=== PATIENT | male | born 1935 | race Caucasian/White ===

== ENCOUNTER → 2019-10-27 14:25 | Outpatient (BNVA) | payer MEDICARE, OTHER, SELFPAY | PROVIDERS: Family Provider Family Medicine; PCP Family Medicine; Visit Provider Urology | DX: C67.9 Malignant neoplasm of bladder, unspecified (principal); C67.2 Malignant neoplasm of lateral wall of bladder | CPT/HCPCS: 81001 ==

== ENCOUNTER 2019-11-15 13:20 | Inpatient (IN) | payer MEDICARE, OTHER, SELFPAY ==
[2019-11-11 09:31] VITALS: BMI 29.1
--- NOTE | 2019-11-11 10:00 | ECG_ITS ---
Measurements Intervals [place] Rate: 49 P: 10 OR: 129 QRS: 17 QRSD: 86 T: 51 QT: 428 QTc: 389 SINUS BRADYCARDIA Compared to ECG 05/15/2017 10:14:42 No significant changes Electronically Signed On 11-11-2019 19:10:08 DESK OFFICER by Mani Loving M.D. [id number]
[2019-11-11 10:15] LABS: Add Urine Microscopic? NO
[2019-11-11 10:17] LABS: Basophils % 0.4 %; Eosinophils # 0.3 10^3/uL (0.0-0.8); Eosinophils % 4.3 %; Hematocrit 39.1 % (42.0-52.0); Hemoglobin 12.8 g/dL (11.7-16.6); Lymphocytes # 0.9 10^3/uL (0.8-4.8); Lymphocytes % 12.4 %; Mean Corpuscular HGB Conc 32.7 g/dL (30.0-36.0); Mean Corpuscular Hemoglobin 29.7 pg (28.0-34.0); Mean Corpuscular Volume 90.7 fL (80-94); Mean Platelet Volume 9.9 fL (7.4-10.4); Monocytes # 0.5 10^3/uL (0.2-0.9); Monocytes % 7.3 %; Neutrophils # 5.3 10^3/uL (1.8-7.7); Neutrophils % 75.3 %; Nucleated Red Blood Cells % 0 %; Platelet Count 196 10^3/cmm (130-400); Red Blood Count 4.31 10^6/uL (4.1-5.3); Red Cell Distribution Width 13.3 % (12.1-15.1)
[2019-11-11 10:27] LABS: INR 1.03 (0.8-1.2)
[2019-11-11 10:28] LABS: Urine Appearance Clear (CLEAR); Urine Color Yellow (Yellow)
[2019-11-11 10:29] LABS: Bilirubin Urine Neg (NEGATIVE); Blood Urine Neg (Negative); Glucose Urine UA Norm (Normal); Ketones Urine Negative (Negative); Leukocyte Esterase Urine Negative (Negative); Nitrate Urine Negative (Negative); Protein Urine Neg (Negative); Urobilinogen Urine Norm (Negative)
[2019-11-11 10:30] LABS: Blood Urea Nitrogen 16 mg/dL (8-23); Calcium 9.9 mg/dL (8.5-10.5); Carbon Dioxide 29 mmol/L (22-29); Chloride 102 mmol/L (98-107); Glucose 146 mg/dL (65-115); Osmolality Calculated 289 mOsm/kg (285-295); Sodium 140 mmol/L (136-145)
[2019-11-15 06:51] VITALS: BP 162/91; PULSE 77; RESP 18; TEMP 36.3; O2SAT 97
[2019-11-15 07:18] LABS: Glucose Point of Care 113 mg/dL (70-110)
[2019-11-15] MEDS: sodium chloride 0.9% 1,000 ML 30 ML IV (07:21)
--- NOTE | 2019-11-15 07:58 | P.ANESASSM_ITS ---
Pre-Anesthetic Assessment Pre-Anesthetic Assessment: Height/Weight: Height 1.8 m Weight 94.801 kg Temp Pulse Resp BP Pulse Ox 97.3 F L 77 18 162/91 97 11/15/19 06:51 11/15/19 06:51 11/15/19 06:51 11/15/19 06:51 11/15/19 06:51 Preop Diagnosis: Right Carotid stenosis Proposed Procedure: Operation Date: 11/15/19 08:20 Proposed Procedures p Carotid Endarterectomy(Right) - Moi Carmona MD Last intake: Intake Last Liquid Date 11/14/19 Last Liquid Time 22:00 Last Solid Date 11/14/19 Last Solid Time 22:00 Social: Pack years: 30 Comment: quit 35 years ago, Exam: Pre-Anes Outpt Exam: alert, oriented x 3, clear to auscultation bilaterally and regular rate & rhythm Airway: Submandibular: WNL Cervical ROM: WNL MP: 1 Pulmonary: Pulmonary: COPD CV/HEM: CV/HEM: HTN Comments: rx'd x 20y stress test 20y negative GI: GI: GERD Metabolic: Metabolic: DM and Hyperlipidemia Comments: rx'd x 20y, normally does not follow Neuropsych: Neuropsych: CVA Comments: 10/11 memory issues date 11/14/19 [facility] Anesthetic Plan: ASA status: 3 Meds/Allergies Current Medications: Current Medications Generic Name Dose Route Start Last Admin Trade Name Freq PRN Reason Stop Dose Admin Sodium Chloride 1,000 mls @ 30 ml s/hr 11/15/19 07:00 11/15/19 07:21 Sodium Chloride 0.9% IV 11/16/19 06:59 30 mls/hr .Q24H KEVIN Administration PFSH Anesthesia PFSH: Social History Smoking and tobacco status: former smoker Alcohol intake: never Lives independently: No Household members: spouse Marital status: Current occupational status: retired History of recent travel: No Data Anesthesia CBC & Chem 7: 11/11/19 09:51 11/11/19 09:51 Other Labs: Laboratory Results - last 48 hr 11/11/19 11/15/19 09:51 07:15 POC Glucose 113 Blood Type O Positive Antibody Screen Negative Crossmatch See Detail Cardiac Studies: No Data to Display
--- NOTE | 2019-11-15 08:17 | W.PM.OPSUD ---
Surgery/Procedure H&P Update DATE OF PROCEDURE: November 15, 2019 DATE H&P PERFORMED: 10/28/19 H&P UPDATE INFORMATION: I have reviewed H&P completed within last 30 days, I have examined patient prior to procedure and No changes to prior documentation PREOP DIAGNOSIS: Right Carotid stenosis PRIMARY INDICATION FOR PROCEDURE: Total occlusion of the left internal carotid artery with 70% stenosis on the right internal carotid artery with recent CVA August 2019 I have conferred with my colleague Dr. Pettit from neurology concerning recommendations for right carotid endarterectomy, and she concurs given the recent history for CVA. He is felt to be at high risk for recurrent major neurologic event. Details and risks of surgery were carefully and frankly discussed with Mr. Pruett and his . The increased risk related to operative complications including stroke, , temporary or permanent hoarseness or swallowing difficulties were frankly discussed in lieu of his prior left carotid endarterectomy with now left ICA occlusion. He and his wish to proceed. PLANNED PROCEDURE: Operation Date: 11/15/19 08:20 Proposed Procedures p Carotid Endarterectomy(Right) - Moi Carmona MD
[2019-11-15] MEDS: vancomycin 1,000 MG SDV 1000 MG IRRIGATION (09:45)
[2019-11-15] MEDS: heparin, porcine 1,000 unit/mL INJ 10 mL 10000 UNIT IRRIGATION (10:26)
[2019-11-15] MEDS: ondansetron 2 mg/ML SDV 2 mL 4 MG IVP (13:28)
--- NOTE | 2019-11-15 13:32 | PC.NURSE ---
RECOVERY Patient recovered from surgery for 30 minutes. Mild nausea and pain. Fluids given in OR- 900 EBL in OR- 150 Urine output in OR- 600
--- NOTE | 2019-11-15 13:43 | PM.OP ---
Operative Report Date of procedure: November 15, 2019 Pre-op Diagnosis: Right Carotid stenosis Post-op diagnosis: same Procedure Done: Right carotid endarterectomy with patch angioplasty Specimens removed/disposition: Right carotid artery plaque Surgeon: Moi Carmona Anesthesia: General Estimated blood loss (mL): 150 Complications: None: Neurologically intact postop Disposition: ICU Brief History: 84-year-old gentleman status post left carotid endarterectomy 20 years ago. He suffered a CVA in August 2019 with profound confusion and disorientation which lasted for about 2 to 3 days. No focal deficits. He was found to have a totally occluded left internal carotid artery and a 70% right internal carotid artery. After consultation with Dr. Pettit from neurology, it is been recommended that right carotid endarterectomy be considered. This was carefully discussed with Mr. Pruett and his during previous clinic visits. They understand the increased risk related to his advanced age, recent CVA, and totally occluded left side. They wished to proceed. Procedure: Mr. Pruett was placed on the OR table and underwent general endotracheal anesthesia with a neurological monitoring endotracheal tube as well as placement of a right radial arterial line. Bihemispheric monitoring pads were placed as well as grounding and sensing pads for nerve conduction evaluation during neck dissection.The entire upper chest and right neck were sterilely prepped and draped. Due to minimal rotation capabilities of his neck, the table was inclined substantially to the left side to allow for adequate exposure. Incision was made along the anterior border of the sternomastoid muscle and carried down to the platysma with cautery. Dissection from this point forward was carried out utilizing Metzenbaum scissors. The internal jugular vein was dissected free and the facial vein was ligated, oversewn, and divided. Dissection was continued down through the ansa cervicalis with preservation of major branches. Minor branches were divided if required to allow for adequate exposure. Nerve conduction evaluation was performed throughout the dissection for protection of the recurrent nerve. We subsequently reached the common carotid artery. Dissection was then continued proximally to distally across the bifurcation. Vessel loops were placed around the common carotid artery, internal carotid artery, and external carotid artery. Distally, the base of the hypoglossal nerve could be identified and was protected. The internal carotid artery disease went fairly high and extended above the level of the mandibular angle. This did require some traction in this region, but great care was taken to minimize pressure to the hypoglossal nerve, which was protected. Care was taken during this dissection to avoid injury to the vagus nerve. The patient was then heparinized with 10,000 units. The systolic blood pressure was elevated to 160. Following this, in a rapid sequenced fashion, the distal internal carotid artery was clamped followed by clamping of the common carotid artery and external carotid artery. #11 scalpel blade was used to open the common carotid artery proximally. Triplett scissors were then utilized to extend this arteriotomy across the distal common carotid artery and ulcerated very stenotic plaque and continue this further at the bifurcation across the calcific plaque in the internal carotid artery until we had reached normal intima. The internal carotid artery clamp was briefly flashed with evidence of brisk back bleeding, therefore we elected not to shunt though we had planned to originally. It should be noted that bi-hemispheric oximetry was recorded throughout the procedure. Initial measurements on the right side were in the mid 60 range and also continued during carotid clamping and after reinstitution of flow which did improve up to near 70. Next, a freer elevator was utilized to create a dissection plane the plaque from intima at the proximal portion of the arteriotomy. This was then divided with a #11 scalpel blade. This plaque was then further dissected along the intimal plane proximally to distally across the bifurcation. Utilizing an everting technique, plaque was removed from the external carotid artery with brisk flow. This plaque was then dissected free up the internal carotid artery to a feathered edge. Heparinized saline solution was utilized to remove any loose debris. Next, a Hemashield patch was brought into the field and sewn into position utilizing a running 6-0 Prolene suture, thereby completing our patch angioplasty. At the completion of the patch, the external carotid artery was opened followed by the common carotid artery and finally the internal carotid artery, thereby reestablishing cerebral flow. Areas of extravasation were repaired with 6-0 Prolene suture. After 5 minutes, heparin was reversed with protamine. Hemostasis was confirmed. The wound was irrigated with antibiotic solution. A small, flat, Gulshan-Villa drain was placed in the wound and connected to bulb suction. Sponge and needle count was correct. The wound was then closed in 2 layers of 3-0 Vicryl suture. Skin was reapproximated in a subcuticular manner with 4-0 Monocryl suture. A pressure dressing was then applied. He was awakened from anesthesia and spontaneous movement of all extremities as well as movement to command was noted. Mr. Pruett was then transferred to the ICU in stable condition. I did bereavement counselor with the family at completion of the procedure. Mr. Pruett will be monitored in the ICU for the next 24 hours.
[2019-11-15] MEDS: aspirin 81 mg EC Tablet PO (15:37)
[2019-11-15 16:59] VITALS: BP 105/53
[2019-11-15] MEDS: amlodipine 5 mg Tablet PO (16:59)
[2019-11-15] MEDS: ceFAZolin 1,000 MG in sodium chloride 0.9% (plus) 50 ML 100 MG IV (16:59)
[2019-11-15] MEDS: losartan 50 mg Tablet 25 MG PO (16:59)
[2019-11-15] MEDS: metoprolol tartrate 50 mg Tablet 75 MG PO (17:00)
[2019-11-15 18:50] LABS: Glucose Point of Care 101 mg/dL (70-110)
[2019-11-15] MEDS: lactated ringers 1,000 ML 100 ML IV (19:10)
[2019-11-15] MEDS: HYDROcodone-acetaminophen 5-325 mg Tablet 1 TAB PO (20:37)
[2019-11-15 20:42] LABS: Glucose Point of Care 124 mg/dL (70-110)
--- NOTE | 2019-11-15 23:36 | PC.NURSE ---
Patient confused at to time and place. Continues to ask about his . Pulling of telemetry lines, Oxygen probe and pulling at SCOTT drain.
[2019-11-16] MEDS: ceFAZolin 1,000 MG in sodium chloride 0.9% (plus) 50 ML 100 MG IV ×2 (00:22→09:39)
[2019-11-16] MEDS: HYDROcodone-acetaminophen 5-325 mg Tablet 1 TAB PO ×2 (03:52→14:51)
[2019-11-16] MEDS: lactated ringers 1,000 ML 100 ML IV (04:03)
--- NOTE | 2019-11-16 06:45 | P.PN_ITS ---
Subjective Subjective: Interval history: Postop day 1 status post right carotid endarterectomy with patch angioplasty. Uneventful night. Neurochecks have been normal. Voice quality is normal. No swallowing difficulties. SCOTT drain output 30 cc overnight. Vital signs stable. Vitals/I&O/Wt Last Vital Signs Temp 97.3 F L 11/15/19 06:51 Pulse 77 11/15/19 06:51 Resp 18 11/15/19 06:51 BP 105/53 11/15/19 16:59 Pulse Ox 97 11/15/19 06:51 11/15/19 11/15/19 11/16/19 14:59 22:59 06:59 Intake Total 150 / 150 250 / 400 1250 / 1650 Output Total 165 / 165 315 / 480 Balance 150 / 150 85 / 235 935 / 1170 Physical Exam Neck/C-Spine: COMMON NORMALS: negative for full ROM OTHER: Incision line is intact. There is mild swelling though this is not substantial. No breathing difficulties. Trachea midline. SCOTT drain was discontinued. New dressings applied. Urinary Catheter Management^: Brar: Cath Placed During This Visit: yes Urethral Indwelling: No Reason for Continuing Indwelling Catheter: Accurate Measurement of Urinary Output in Critically Ill Patients Urinary Catheter Date of Insertion: 11/15/19 Urinary Catheter Time of Insertion: 09:05 Data : 11/11/19 09:51 11/11/19 09:51 A&P Assessment and plan (1) Carotid stenosis: Postop day #1 status post right carotid endarterectomy Will assess at noon to determine whether he needs to stay a second night. If so, will transfer to [place]. A bit of confusion this morning. I did discuss with family that I was concerned that he may be having some early onset dementia issues, and they confirmed that they actually had previously had similar discussions among themselves. We will reassess after breakfast and after ambulation in the unit. He may well need to stay a a second night. Status: Acute Code(s): I65.29 - Occlusion and stenosis of unspecified carotid artery Attestations Medical Necessity Statement*: Status post carotid endarterectomy Time Spent in Patient Care: 16 - 35 minutes Coding Level of Care Code Acute Fryer Line Helper for [facility] Fwamadeo Diagnoses Carotid stenosis I65.29
[2019-11-16] MEDS: ezetimibe 10 mg Tablet PO (09:37)
[2019-11-16] MEDS: atorvastatin 40 mg Tablet PO (09:37)
[2019-11-16] MEDS: tamsulosin 0.4 mg Capsule PO (09:38)
[2019-11-16] MEDS: allopurinol 100 mg Tablet PO (09:38)
[2019-11-16] MEDS: allopurinol 300 mg Tablet PO (09:38)
--- NOTE | 2019-11-16 10:12 | PC.CHAP ---
Pastoral Care Encounter/Spiritual Assessment Type of Contact [] Declined hot plate plywood press laborer visit [] Patient/Family/Request visit [] Outpatient visit [] Follow-up visit [] Physician referral [] Code/Alert [x Routine visit [] Staff referral [] Actively dying [] Patient sleeping [x] Family support [] [] Out of room [] Palliative care [] [] Receiving care in room [] Pre-surgical visit [] Trauma [] Long length of stay [x] ICU visit [] Other: Relational/Emotional Strength [] Patient feels connected with others/family/visitors/staff [] Distress [] Loneliness/isolation [] Abandonment Spirituality of Patient [x] Person of Tanya [] Attends Restoration of their Tanya [x] Believes in Prayer [] Reads Bible or Mu-Ism materials [] There are Spiritual issues to be addressed Outside Laborer Interventions [x] Prayer [] Active listening [] Non-anxious presence [] Spiritual/emotional support [] Crisis/trauma care [] Spiritual counseling [] Bereavement support [] Provided bereavement packet [] Provided Bible/devotional materials [] Provided toy/stuffed animal, coloring book to patient or family member [] Provided Communion [] Anointing/[place] [] Salvation [x] Completed spiritual assessment [] Other: Impact on Illness or Injury [] Angry [] Fearful [] Anxious [] Often cries [] Exhaustion [] Unable to work [] Unable to attend judaism [] Unable to walk/stand [] Unable to read [] Unable to drive [] Unable to eat/drink [] Unable to sleep [] Unable to be with family [] Patient intubated [] Other: Summary Patient (Max) feeling stronger. Edison very positive Time spent with patient 20min
[2019-11-16 11:14] LABS: Glucose Point of Care 137 mg/dL (70-110)
--- NOTE | 2019-11-16 11:47 | ANE.PACU2 ---
 Inpatient post-anesthesia follow up: Airway intact: Yes Vital signs: Temperature 97.3 F Pulse Rate 77 Respiratory Rate 18 Blood Pressure 105/53 Pulse Oximetry 97 Oxygen Delivery Me thod Room Air Oxygen Flow Rate Fraction of Inspir ed Oxygen Hydration adequate: Yes Nausea and vomiting: No Pain level: 2 Mental status: Baseline
[2019-11-16 16:11] LABS: Glucose Point of Care 168 mg/dL (70-110)
[2019-11-16 17:08] LABS: Glucose Point of Care 109 mg/dL (70-110)
--- NOTE | 2019-11-16 19:55 | PC.NURSE ---
Pt had 10 beat run of Vtach on monitor present in all leads, returned to sinus rhythm rate in 60's. On arrival into room patient resting on right side. No complaints of chest pain or dizziness. V/s 115/46 HR 63 O2 98% on 2L. Will continue to monitor.
[2019-11-16 20:21] VITALS: BP 119/49; PULSE 60; RESP 16; TEMP 36.8; O2SAT 95
[2019-11-16 20:47] LABS: Glucose Point of Care 182 mg/dL (70-110)
[2019-11-16 22:00] VITALS: BP 111/43; PULSE 66; RESP 14; TEMP 37.4; O2SAT 96
[2019-11-17] VITALS (9 sets, daily range): BP systolic 123–145; BP diastolic 48–67; PULSE 57–82; RESP 6–26; TEMP 36.8–37; O2SAT 92–97
[2019-11-17] MEDS: HYDROcodone-acetaminophen 5-325 mg Tablet 1 TAB PO ×2 (03:08→11:21)
--- NOTE | 2019-11-17 05:57 | P.PN_ITS ---
Subjective Subjective: Interval history: Postop day #2 status post right carotid endarterectomy with patch angioplasty. Uneventful night. Vital signs stable. Neurologically intact. Nurses report he does have occasional episodes of mild confusion but is easily reoriented. It is my understanding home health services have been arranged with [facility]. Vitals/I&O/Wt Last Vital Signs Temp 98.6 F 11/17/19 00:00 Pulse 68 11/17/19 04:00 Resp 12 11/17/19 04:00 BP 131/54 11/17/19 04:00 Pulse Ox 95 11/17/19 04:00 11/16/19 11/16/19 11/17/19 14:59 22:59 06:59 Intake Total 820 / 820 110 / 930 100 / 1030 Output Total 0 / 0 320 / 320 300 / 620 Balance 820 / 820 -210 / 610 -200 / 410 Physical Exam Const: COMMON NORMALS: oriented x3 Neck/C-Spine: COMMON NORMALS: negative for full ROM OTHER: Incision is clean and dry. Trachea midline. Neuro: COMMON NORMALS: oriented x3, moves all extremities, no focal motor deficits (Tongue is midline with protrusion. No swallowing difficulties.) and no sensory deficits noted Urinary Catheter Management^: Brar: Cath Placed During This Visit: yes Urethral Indwelling: No Reason for Continuing Indwelling Catheter: Accurate Measurement of Urinary Output in Critically Ill Patients Urinary Catheter Date of Insertion: 11/15/19 Urinary Catheter Time of Insertion: 09:05 Data : 11/11/19 09:51 11/11/19 09:51 A&P Assessment and plan (1) Carotid stenosis: Postop day #2 status post right carotid endarterectomy We will discharge to home health services today with follow-up in my clinic in 1 week. Status: Acute Code(s): I65.29 - Occlusion and stenosis of unspecified carotid artery Attestations Medical Necessity Statement*: Status post carotid endarterectomy for high- grade right ICA stenosis with total occlusion of the left ICA Time Spent in Patient Care: 16 - 35 minutes Coding Level of Care Code Acute Land Conservation Specialist for [facility] Diagnoses Carotid stenosis I65.29
--- NOTE | 2019-11-17 06:06 | PM.DCS ---
Discharge Providers Date of Admission: 11/15/19 13:20 Date of Discharge: November 17, 2019 Attending Provider at Admission: Moi Carmona MD Attending Provider at Discharge: Moi Carmona MD Primary Care Provider: Federico Hinton MD Diagnoses at Discharge Discharge Diagnosis (1) Carotid stenosis: Status: Acute Reason for Visit Reason for Visit: Reason For Visit: Right carotid endarterectomy Hospital Course Hospital Course: 84-year-old gentleman electively admitted for planned right carotid endarterectomy on November 17. He was referred to our service with a greater than 70% right ICA stenosis with a total occlusion of the left ICA. He had been hospitalized in August 2019 with a CVA. Consultation with neurology confirm recommendation that right carotid endarterectomy should be considered. Discharge Summary: Mr. Pruett was electively admitted underwent right CEA on November 15. He convalesced in the ICU where he remained neurologically intact. No focal deficits. He did have some episodes of confusion as to orientation. He was easily reoriented. As he lives along with his , we have made arrangements for home health services. Family has refused retirement care. I have made strong recommendations to family members that others need to be present particularly in the early postop period and that it would not be advisable for him and his to be alone. It is modest and he provides much of the care for his whom I have seen in a wheelchair at all prior visits. At the time of discharge she is oriented and neurologically intact. We will confirm that home health arrangements have been made and strongly encouraged appropriate family support, particular in the early postop period. Physical Exam Urinary Catheter Management^: Brar: Cath Placed During This Visit: yes Urethral Indwelling: No Reason for Continuing Indwelling Catheter: Accurate Measurement of Urinary Output in Critically Ill Patients Urinary Catheter Date of Insertion: 11/15/19 Urinary Catheter Time of Insertion: 09:05 Discharge Data Data Completed and Pending: Pending at discharge Category Date Time Status Leukocyte Reduced RBC Routine Lab 11/11/19 09:51 Results Retype for XM Rou rosetta Lab 11/11/19 09:51 Results Type and Screen - Cardiac Routine Lab 11/11/19 09:51 Results Pathology: Surgic al [PTH] Routine Pth 11/15/19 11:38 Received Labs from last 24 hours 11/16/19 11/16/19 11/16/19 20:44 16:58 11:24 POC Glucose 182 109 168 11/16/19 07:38 POC Glucose 137 Vitals: Last Vital Signs Temp 98.3 F 11/17/19 06:00 Pulse 82 11/17/19 06:00 Resp 18 11/17/19 06:00 BP 128/49 11/17/19 06:00 Pulse Ox 97 11/17/19 06:00 Discharge Plan Discharge Patient Disposition: Home, Self-Care Condition: Stable Prescriptions: New aspirin [Adult Low Dose Aspirin] 81 mg tablet,delayed release (DR/EC) 81 mg PO DAILY Qty: 90 RF: 4 Continued Eliquis 5 mg tablet 5 mg PO BID RF: 0 indomethacin 50 mg capsule 50 mg PO TID RF: 0 losartan 25 mg tablet 25 mg PO BID RF: 0 amlodipine 5 mg tablet 5 mg PO BID RF: 0 metoprolol tartrate 50 mg tablet 75 mg PO BID RF: 0 allopurinol 300 mg tablet 300 mg PO DAILY RF: 0 atorvastatin 40 mg tablet 40 mg PO DAILY RF: 0 ezetimibe 10 mg tablet See Rx Instructions PO DAILY RF: 0 glipizide 2.5 mg tablet extended release 24hr 2.5 mg PO DAILY RF: 0 Januvia 100 mg tablet 100 mg PO DAILY RF: 0 tamsulosin 0.4 mg capsule 0.4 mg PO DAILY RF: 0 Discontinued lidocaine HCl 2 % jelly 20 ml INTRA-URET ONCE Qty: 20 RF: 0 allopurinol 100 mg tablet 100 mg PO DAILY RF: 0 Discharge Orders: Discharge Order (Routine); Ordered 11/17/19 Ordered By: Moi Carmona Referrals: [facility] [Outside] () Moi Carmona MD [Physician] - 1 week Discharge Diet: Diabetic Discharge Activity: Increase activity as tolerated Activity Restrictions/Additional Instructions: No heavy lifting or straining x2 weeks May remove bandage tomorrow May begin daily showers tomorrow no swimming or tub baths x2 weeks Report any redness, swelling, drainage, fever, or increased tenderness Discharge Attestations Time Spent in Discharge Care*: less than 30 min Specific Discharge Activities: Specific discharge activities: educating patient, educating and/or supporting family/caregiver and discussing with pcp/other providers Quality Metrics Clinical Quality Measures During this hospital stay, did patient experience: None Coding Level of Care Code Acute Assistant General Manager for [employer] Diagnoses Carotid stenosis I65.29
[2019-11-17 06:57] LABS: Glucose Point of Care 118 mg/dL (70-110)
[2019-11-17] MEDS: allopurinol 300 mg Tablet PO (08:27)
[2019-11-17] MEDS: atorvastatin 40 mg Tablet PO (08:27)
[2019-11-17] MEDS: losartan 50 mg Tablet 25 MG PO (08:28)
[2019-11-17] MEDS: amlodipine 5 mg Tablet PO (08:28)
[2019-11-17] MEDS: ezetimibe 10 mg Tablet PO (08:28)
[2019-11-17] MEDS: tamsulosin 0.4 mg Capsule PO (08:28)
[2019-11-17] MEDS: metoprolol tartrate 50 mg Tablet 75 MG PO (08:28)
[2019-11-17] MEDS: allopurinol 100 mg Tablet PO (08:28)
--- NOTE | 2019-11-17 10:23 | PC.CHAP ---
Pastoral Care Encounter/Spiritual Assessment Type of Contact [] Declined security business analyst visit [] Patient/Family/Request visit [] Outpatient visit [] Follow-up visit [] Physician referral [] Code/Alert [x] Routine visit [] Staff referral [] Actively dying [] Patient sleeping [x] Family support [] [] Out of room [] Palliative care [] [] Receiving care in room [] Pre-surgical visit [] Trauma [] Long length of stay [x] ICU visit [] Other: Relational/Emotional Strength [] Patient feels connected with others/family/visitors/staff [] Distress [] Loneliness/isolation [] Abandonment Spirituality of Patient [x] Person of Tanya [] Attends Religious of their Tanya [x] Believes in Prayer [] Reads Bible or Sikhism materials [] There are Spiritual issues to be addressed Document Coordinator Interventions [x] Prayer [] Active listening [] Non-anxious presence [] Spiritual/emotional support [] Crisis/trauma care [] Spiritual counseling [] Bereavement support [] Provided bereavement packet [] Provided Bible/devotional materials [] Provided toy/stuffed animal, coloring book to patient or family member [] Provided Communion [] Anointing/Kinde [] Salvation [x] Completed spiritual assessment [] Other: Impact on Illness or Injury [] Angry [] Fearful [] Anxious [] Often cries [] Exhaustion [] Unable to work [] Unable to attend yazidism [] Unable to walk/stand [] Unable to read [] Unable to drive [] Unable to eat/drink [] Unable to sleep [] Unable to be with family [] Patient intubated [] Other: Summary Patient attempting to eat some eggs. Patient stronger today, but very sore. Time spent with patient 15min
[2019-11-17 11:32] LABS: Glucose Point of Care 108 mg/dL (70-110)
== END 2019-11-17 13:05 | disposition home or self-care (01) | DRG 39 ==
LOC: ICU 13:21
PROVIDERS: Admitting Provider Thoracic Surgery (Cardiothoracic Vascular Surgery); Family Provider Family Medicine; PCP Family Medicine; Visit Provider Thoracic Surgery (Cardiothoracic Vascular Surgery)
PROC: 03CK0ZZ Extirpation of Matter from Right Internal Carotid Artery, Open Approach (ICD-10-PCS; CPT 35301; principal; 2019-11-15 08:20)
DX: I65.21 Occlusion and stenosis of right carotid artery (principal); J44.9 Chronic obstructive pulmonary disease, unspecified; I10 Essential (primary) hypertension; E13.9 Other specified diabetes mellitus without complications; Z96.651 Presence of right artificial knee joint; Z79.01 Long term (current) use of anticoagulants; Z85.51 Personal history of malignant neoplasm of bladder; Z86.73 Personal history of transient ischemic attack (TIA), and cerebral infarction without residual deficits; Z87.891 Personal history of nicotine dependence
CPT/HCPCS: 12345; 36415; 36416; 51702; 80048; 81003; 82962; 85025; 85610; 86850; 86900; 88304; 93005; 96372; 96375; J0131; J0690; J1644; J1815; J2001; J2405; J2704; J2720; J3010; J3370; J3490; J7030

== ENCOUNTER 2019-11-22 15:37 | Emergency (ER) | payer MEDICARE, OTHER, SELFPAY ==
[2019-11-22 16:33] VITALS: BP 119/61; PULSE 80; RESP 16; TEMP 36.6; O2SAT 100; BMI 28.0
--- NOTE | 2019-11-22 16:44 | CTR_ITS ---
PROCEDURE INFORMATION: Exam: CT Head Without Contrast Exam date and time: 11/22/2019 4:55 PM Age: 84 years old Clinical indication: Altered mental status/memory loss; Patient HX: AMS. Recent onset of increased confusion per . Recent right endarterectomy. ; Additional info: Neuro symptoms TECHNIQUE: Imaging protocol: Computed tomography of the head without contrast. Total DLP: 887.39 mGy-cm Radiation optimization: All CT scans at this facility use at least one of these dose optimization techniques: automated exposure control; mA and/or kV adjustment per patient size (includes targeted exams where dose is matched to clinical indication); or iterative reconstruction. COMPARISON: CT head wo con* [id number] 08/21/2019 1:08 AM FINDINGS: Brain: There is moderate cortical atrophy. There is no intracranial mass or hemorrhage. There are small old lacunar infarct in the head of left caudate nucleus. Low-density changes are again seen in white matter regions in keeping with nonspecific small vessel chronic ischemic change. Midline shift: There is no shift of midline structures. Ventricles: Normal. No ventriculomegaly. Bones/joints: Unremarkable. No acute fracture. Sinuses: There is opacification of a few ethmoid air cells on the right. Mastoid air cells: Visualized mastoid air cells are well aerated. Soft tissues: Unremarkable. Other findings: Findings are not significantly changed from 08/21/2019. CT/CT head wo con* [id number] IMPRESSION: Atrophy and chronic ischemic changes. No acute intracranial finding. Radiation Dose CTDIVOL = (mGy): DLP = 887.39 (mGy-cm)
--- NOTE | 2019-11-22 18:33 | XR_ITS ---
WS: [id number] XR chest 1V portable [id number] REASON FOR EXAM: ams FINDINGS: The lung jaime are hypoaerated. There is arteriosclerotic changes in the arch of the aorta. The heart is not enlarged. There is no definite pneumonia, pleural effusion, pulmonary edema, or mass effect. There are hilum and apices normal. XR/XR chest 1V portable [id number] IMPRESSION: Arteriosclerotic changes in the arch of the aorta.
--- NOTE | 2019-11-22 18:34 | ECG_ITS ---
Measurements Intervals [place] Rate: 57 P: 22 MO: 126 QRS: 36 QRSD: 97 T: 47 QT: 434 QTc: 426 SINUS BRADYCARDIA WITH OCCASIONAL SUPRAVENTRICULAR PREMATURE COMPLEXES INTERPRETATION BASED ON A DEFAULT AGE OF 40 YEARS Compared to ECG 11/11/2019 10:08:30 No significant changes Electronically Signed On 11-22-2019 20:26:10 AREA CAPTAIN by Sarah Maier M.D. [email or web address]
--- NOTE | 2019-11-22 18:42 | ED_ITS ---
Entered by Maylin Siddiqui, acting as scribe for Jose Snyder MD Nov 22, 2019 15:37 HPI - Neuro Symptoms/Deficit General: Chief Complaint: Neuro Symptoms/Deficit Stated Complaint: AMS Time Seen by Provider: 11/22/19 18:32 Source: patient and family Mode of arrival: ambulatory Limitations: no limitations History of Present Illness: HPI Narrative: 84-year-old male who had a carotid endarterectomy last week by Dr. Carmona. Patient was seen today by PA at the ophthalmology clinic and has been having confusion. Patient here is able answer all my questions and does know the year but states that he gets confused and that is not his normal. Patient has been having difficulty recognizing people. He has had no weakness or slurred speech. Denies any worsening or improving factors. Timing confirmed by: spouse and family member Location: other (confusion) History of same: No Severity: moderate Relieving factors: none Exacerbating factors: none Context: gradual onset Associated symptoms: Reports no associated symptoms; Deny chest pain Treatments Prior to Arrival: other (pt was sent to the ED from Dr. [facility] for a possible stroke) Review of Systems General: Reports: 10 or more systems reviewed and unremarkable except in HPI and below Const: Denies: fever, chills, body aches or night sweats Eyes: Denies: change in vision ENMT: Denies: swelling of lips/tongue or bad breath Card: Denies: chest pain or lightheadedness Resp: Denies: shortness of breath or pain on inspiration GI: Denies: bloating or cramping Musc: Denies: neck pain or back pain Neuro: Reports: other (confusion) [facility] ED PFSH: Social History Smoking and tobacco status: former smoker Alcohol intake: never Lives independently: No Household members: spouse Marital status: Current occupational status: retired History of recent travel: No Physical Exam Const: COMMON NORMALS: no apparent distress, oriented x3 and healthy appearing HENMT: COMMON NORMALS: normocephalic and head/scalp atraumatic HEAD & SCALP: normocephalic and atraumatic Eye: COMMON NORMALS: PERRL and EOMs intact bilaterally PUPIL: Yes PERRL Neck/C-Spine: COMMON NORMALS: full ROM and supple Chest: COMMONS NORMALS: inspection of chest normal and palpation of chest normal Resp: COMMON NORMALS: normal respiratory effort, no retractions, no use of accessory muscles and clear to auscultation bilaterally AUSCULTATION: clear to auscultation bilaterally Cardio: COMMON NORMALS: regular rate, regular rhythm and no murmurs RATE: regular rate RHYTHM: regular rhythm GI: COMMON NORMALS: normal to inspection, nondistended, normoactive bowel sounds, soft to palpation, non-tender and no masses PALPATION: Yes soft Extremity: COMMON NORMALS: normal to inspection and full ROM Neuro: COMMON NORMALS: oriented x3, moves all extremities and no focal motor deficits Psych: COMMON NORMALS: mental status grossly normal, thought process normal and cooperative THOUGHT PROCESS: normal thought process Skin: COMMON NORMALS: no rashes or lesions noted and no wounds GENERAL SKIN EXAM: no rashes or lesions noted Course Vital Signs: Vital signs: Vital Signs Temperature 98 F 11/22/19 16:33 Pulse Rate 86 11/22/19 18:51 Respiratory Rate 16 11/22/19 18:51 Blood Pressure 151/68 11/22/19 18:51 Pulse Oximetry 95 11/22/19 18:51 MDM - Neuro Symptoms/Deficit MDM Narrative: Medical decision making narrative: Patient presents here with confusion that is since resolved. He is able answer all my questions appropriately and knows the year and his name. CT head here is normal. Lab work is normal as well. Patient is requesting discharge. I did offer him admission as he has had some confusion but states he feels improved and would rather follow-up with his primary care doctor outpatient. He is to return if worsening. Patient and understand and agree to plan. Lab Data: Labs: Lab Results 11/22/19 11/22/19 11/22/19 Range/Units 19:30 19:30 19:30 WBC 7.1 (4.0-10.0) 10^3/ uL RBC 3.96 L (4.1-5.3) 10^6/u L Hgb 11.6 L (11.7-16.6) g/dL Hct 36.0 L (42.0-52.0) % MCV 90.9 (80-94) fL MCH 29.3 (28.0-34.0) pg MCHC 32.2 (30.0-36.0) g/dL RDW 13.2 (12.1-15.1) % Plt Count 212 (130-400) 10^3/c mm MPV 9.8 (7.4-10.4) fL Neut % (Auto) 71.5 % Lymph % (Auto) 14.0 % [place] % (Auto) 9.2 % Eos % (Auto) 4.5 % Baso % (Auto) 0.4 % Neut # (Auto) 5.0 (1.8-7.7) 10^3/u L Lymph # (Auto) 1.0 (0.8-4.8) 10^3/u L [place] # (Auto) 0.7 (0.2-0.9) 10^3/u L Eos # (Auto) 0.3 (0.0-0.8) 10^3/u L Baso # (Auto) 0.0 (0.0-0.1) 10^3/u L Nucleated RBC % (a uto) 0 % Nucleated RBCs # 0.0 /100WBC Sodium 139 (136-145) mmol/L Potassium 4.3 (3.5-5.1) mmol/L Chloride 102 (98-107) mmol/L Carbon Dioxide 24 (22-29) mmol/L Anion Gap 17.3 (5-19) BUN 42 H (8-23) mg/dL Creatinine 2.2 H (0.7-1.2) mg/dL Glucose 108 (65-115) mg/dL Calcium 9.7 (8.5-10.5) mg/dL Total Bilirubin 0.5 (0.15-1.2) mg/dL AST 17 (0-40) U/L ALT 15 (0-41) U/L Alkaline Phosphata se 117 (40-130) IU/L Troponin T Baselin e 61 H (0-15) ng/mL Troponin T 120 Min jose (0-15) ng/mL Delta Troponin T (0-10) ABS# Total Protein 6.8 (6.6-8.7) g/dL Albumin 3.7 (3.5-5.2) g/dL Globulin 3.1 (1.3-4.6) g/dL Lipase 46 (13-60) U/L Urine Color (Yellow) Urine Appearance (CLEAR) Urine pH (5-7) Ur Specific Gravit y (1.005-1.030) Urine Protein (Negative) Urine Glucose (UA) (Normal) Urine Ketones (Negative) Urine Blood (Negative) Urine Nitrate (Negative) Urine Bilirubin (NEGATIVE) Urine Urobilinogen (Negative) mg/dL Ur Leukocyte Darling ase (Negative) 11/22/19 11/22/19 Range/Units 20:35 21:13 WBC (4.0-10.0) 10^3/ uL RBC (4.1-5.3) 10^6/u L Hgb (11.7-16.6) g/dL Hct (42.0-52.0) % MCV (80-94) fL MCH (28.0-34.0) pg MCHC (30.0-36.0) g/dL RDW (12.1-15.1) % Plt Count (130-400) 10^3/c mm MPV (7.4-10.4) fL Neut % (Auto) % Lymph % (Auto) % [place] % (Auto) % Eos % (Auto) % Baso % (Auto) % Neut # (Auto) (1.8-7.7) 10^3/u L Lymph # (Auto) (0.8-4.8) 10^3/u L [place] # (Auto) (0.2-0.9) 10^3/u L Eos # (Auto) (0.0-0.8) 10^3/u L Baso # (Auto) (0.0-0.1) 10^3/u L Nucleated RBC % (a uto) % Nucleated RBCs # /100WBC Sodium (136-145) mmol/L Potassium (3.5-5.1) mmol/L Chloride (98-107) mmol/L Carbon Dioxide (22-29) mmol/L Anion Gap (5-19) BUN (8-23) mg/dL Creatinine (0.7-1.2) mg/dL Glucose (65-115) mg/dL Calcium (8.5-10.5) mg/dL Total Bilirubin (0.15-1.2) mg/dL AST (0-40) U/L ALT (0-41) U/L Alkaline Phosphata se (40-130) IU/L Troponin T Baselin e (0-15) ng/mL Troponin T 120 Min jose 58.15 H (0-15) ng/mL Delta Troponin T -2.85 L (0-10) ABS# Total Protein (6.6-8.7) g/dL Albumin (3.5-5.2) g/dL Globulin (1.3-4.6) g/dL Lipase (13-60) U/L Urine Color Yellow (Yellow) Urine Appearance Clear (CLEAR) Urine pH 5 (5-7) Ur Specific Gravit y 1.015 (1.005-1.030) Urine Protein Neg (Negative) Urine Glucose (UA) Norm (Normal) Urine Ketones Negative (Negative) Urine Blood Neg (Negative) Urine Nitrate Negative (Negative) Urine Bilirubin Neg (NEGATIVE) Urine Urobilinogen Norm (Negative) mg/dL Ur Leukocyte Darling ase Negative (Negative) Imaging Data^: CXR: Attestation: I personally reviewed and interpreted this imaging study as follows: My impression: no acute abnormality CT Head: Radiologist's impression: Ordering Provider/Ordering MD: Chuy Gimenez Date of Service: 11/22/19 Procedure(s): CT head wo con* [id number] Accession Number(s): [id number] Report Number: [id number] PROCEDURE INFORMATION: Exam: CT Head Without Contrast Exam date and time: 11/22/2019 4:55 PM Age: 84 years old Clinical indication: Altered mental status/memory loss; Patient HX: AMS. Recent onset of increased confusion per . Recent right endarterectomy. ; Additional info: Neuro symptoms TECHNIQUE: Imaging protocol: Computed tomography of the head without contrast. Total DLP: 887.39 mGy-cm Radiation optimization: All CT scans at this facility use at least one of these dose optimization techniques: automated exposure control; mA and/or kV adjustment per patient size (includes targeted exams where dose is matched to clinical indication); or iterative reconstruction. COMPARISON: CT head wo con* [id number] 08/21/2019 1:08 AM FINDINGS: Brain: There is moderate cortical atrophy. There is no intracranial mass or hemorrhage. There are small old lacunar infarct in the head of left caudate nucleus. Low-density changes are again seen in white matter regions in keeping with nonspecific small vessel chronic ischemic change. Midline shift: There is no shift of midline structures. Ventricles: Normal. No ventriculomegaly. Bones/joints: Unremarkable. No acute fracture. Sinuses: There is opacification of a few ethmoid air cells on the right. Mastoid air cells: Visualized mastoid air cells are well aerated. Soft tissues: Unremarkable. Other findings: Findings are not significantly changed from 08/21/2019. CT/CT head wo con* [id number] IMPRESSION: Atrophy and chronic ischemic changes. No acute intracranial finding. EKG Data^: EKG 1: Attestation: I personally reviewed and interpreted this EKG as follows: EKG interpretation date: 11/22/19 EKG interpretation time: 18:44 Interpretation: Sinus bradycardia heart rate [address] or T wave abnormalities QRS 97 QTc 429 Discharge Plan Discharge Patient Disposition: Home, Self-Care Clinical Impression: Acute confusion Condition: Stable Prescriptions: No Action Eliquis 5 mg tablet 5 mg PO BID RF: 0 indomethacin 50 mg capsule 50 mg PO TID RF: 0 losartan 25 mg tablet 25 mg PO BID RF: 0 amlodipine 5 mg tablet 5 mg PO BID RF: 0 metoprolol tartrate 50 mg tablet 75 mg PO BID RF: 0 allopurinol 300 mg tablet 300 mg PO DAILY RF: 0 atorvastatin 40 mg tablet 40 mg PO DAILY RF: 0 ezetimibe 10 mg tablet See Rx Instructions PO DAILY RF: 0 glipizide 2.5 mg tablet extended release 24hr 2.5 mg PO DAILY RF: 0 Januvia 100 mg tablet 100 mg PO DAILY RF: 0 tamsulosin 0.4 mg capsule 0.4 mg PO DAILY RF: 0 Adult Low Dose Aspirin 81 mg tablet,delayed release (DR/EC) 81 mg PO DAILY Qty: 90 RF: 4 Discharge Orders: Discharge Order (Routine); Ordered 11/22/19 Ordered By: Jose Snyder Referrals: Federico Hinton MD [Primary Care Provider] - 4-7 days Discharge Diet: Advance as tolerated Discharge Activity: Resume usual activity Patient Instructions: Altered Mental Status (ED) Coding Level of Care Code ED [employer] Arc for Chg Fwd Exam Comprehensive The documentation recorded by the Artur blank Bridget Annette, accurately reflects the service I personally performed and the decisions made by Lillian ceballos Korby, MD Nov 22, 2019 15:37
[2019-11-22 18:51] VITALS: BP 151/68; PULSE 86; RESP 16; O2SAT 95
--- NOTE | 2019-11-22 18:55 | PC.NURSE ---
Patient presents to ER with spouse present for altered mental status. Patient is alert, oriented and able to answer all questions appropriately. Spouse states that lately he has just been talking alot, you know about when he was younger. Spouse states he has been talking and talking and she said this is not usual for him and she believes he needs a mental exam.
--- NOTE | 2019-11-22 18:56 | PC.NURSE ---
Pupils are noted to be uneven, right pupil is 5mm, round and reactive; the left pupil is 2mm is round and reactive. I asked regarding his pupils if this is normal or abnormal for the patient, she states she does not know; states they were at Dr. Lowe today and she believes they may have dilated an eye. Will continue to monitor.
[2019-11-22 19:44] LABS: Basophils % 0.4 %; Eosinophils # 0.3 10^3/uL (0.0-0.8); Eosinophils % 4.5 %; Hemoglobin 11.6 g/dL (11.7-16.6); Mean Corpuscular HGB Conc 32.2 g/dL (30.0-36.0); Mean Corpuscular Hemoglobin 29.3 pg (28.0-34.0); Mean Corpuscular Volume 90.9 fL (80-94); Mean Platelet Volume 9.8 fL (7.4-10.4); Monocytes # 0.7 10^3/uL (0.2-0.9); Monocytes % 9.2 %; Neutrophils % 71.5 %; Nucleated Red Blood Cells % 0 %; Platelet Count 212 10^3/cmm (130-400); Red Blood Count 3.96 10^6/uL (4.1-5.3); Red Cell Distribution Width 13.2 % (12.1-15.1); White Blood Count 7.1 10^3/uL (4.0-10.0)
[2019-11-22 19:58] LABS: Alanine Aminotransferase 15 U/L (0-41); Albumin Level 3.7 g/dL (3.5-5.2); Alkaline Phosphatase 117 IU/L (40-130); Anion Gap 17.3 (5-19); Aspartate Amino Transferase 17 U/L (0-40); Blood Urea Nitrogen 42 mg/dL (8-23); Calcium 9.7 mg/dL (8.5-10.5); Carbon Dioxide 24 mmol/L (22-29); Chloride 102 mmol/L (98-107); Globulin 3.1 g/dL (1.3-4.6); Glucose 108 mg/dL (65-115); Lipase 46 U/L (13-60); Potassium 4.3 mmol/L (3.5-5.1); Sodium 139 mmol/L (136-145); Total Bilirubin 0.5 mg/dL (0.15-1.2); Total Protein 6.8 g/dL (6.6-8.7)
[2019-11-22 20:00] LABS: Troponin(5th) Baseline 61 ng/mL (0-15)
--- NOTE | 2019-11-22 20:48 | PC.NURSE ---
Pt and family requesting to leave ED and return tomorrorw to obtain results from testing performed. Pt and family informed all testing will cease if pt leaves AMA. Pt and family verbalized understanding
[2019-11-22 21:03] LABS: Add Urine Microscopic? NO
[2019-11-22 21:07] LABS: Bilirubin Urine Neg (NEGATIVE); Blood Urine Neg (Negative); Glucose Urine UA Norm (Normal); Ketones Urine Negative (Negative); Leukocyte Esterase Urine Negative (Negative); Nitrate Urine Negative (Negative); Protein Urine Neg (Negative); Specific Gravity, Urine 1.015 (1.005-1.030); Urine Appearance Clear (CLEAR); Urine Color Yellow (Yellow); Urobilinogen Urine Norm (Negative); pH Urine 5 (5-7)
[2019-11-22 21:31] LABS: Troponin 5 2HR 58.15 ng/mL (0-15)
[2019-11-22 21:32] LABS: Troponin 5 2HR Delta -2.85 ABS# (0-10)
== END 2019-11-22 21:53 | disposition home or self-care (01) ==
PROVIDERS: Emergency Provider Emergency Medicine; Family Provider Family Medicine; PCP Family Medicine
DX: R41.0 Disorientation, unspecified (principal); Z87.891 Personal history of nicotine dependence
CPT/HCPCS: 36415; 70450; 71045; 80053; 81003; 83690; 84484; 85025; 93005; 99282; 99284

== ENCOUNTER 2019-12-02 14:10 | Inpatient (IN) | payer MEDICARE, OTHER, SELFPAY ==
[2019-12-02] VITALS (7 sets, daily range): BP systolic 110–169; BP diastolic 67–91; PULSE 55–83; RESP 16–18; TEMP 35.9–37; O2SAT 97–100; BMI 27.4
--- NOTE | 2019-12-02 14:37 | XR_ITS ---
WS: [id number] Portable AP upright chest, 12/02/2019 Clinical Data: dyspnea/cough Comparison: Portable chest, 11/22/2019. Findings: No nodules, masses or effusions are seen. The heart is normal. The pulmonary vascularity is not increased. No pneumonia or pneumothorax is seen. There are scattered granulomas throughout both lungs. The patient has poor inspiratory effort. The aortic arch and descending aorta show calcificati on and tortuosity. Monitor leads on the chest wall. XR/XR chest 1V portable [id number] Impression: Atherosclerosis.
--- NOTE | 2019-12-02 14:37 | ECG_ITS ---
Measurements Intervals [place] Rate: 52 P: 0 MO: 127 QRS: 27 QRSD: 97 T: 52 QT: 431 QTc: 404 SINUS BRADYCARDIA Compared to ECG 11/22/2019 18:44:10 No significant changes Electronically Signed On 12-02-2019 17:23:39 CDT by August Jones M.D. [email or web address]
--- NOTE | 2019-12-02 14:37 | CT_ITS ---
WS: [id number] CT HEAD TECHNIQUE: Noncontrast CT of the head obtained from the skullbase to the vertex. CLINICAL INFORMATION: AMS COMPARISON: November 22, 2019 DLP: 426.[address] scans at [facility] use at least one of these dose optimization techniques: automat ed exposure control; mA and/or kV adjustment per patient size (includes targeted exams where dose is matched to clinical indication); or iterative reconstruction. FINDINGS: No evidence of intracranial hemorrhage or mass effect. Ventricular system and basal cisterns are jacobs nt. Moderate small vessel changes with moderate parenchymal volume loss. Chronic lacunar infarct left lateral basal ganglia and left caudate. No extra-axial fluid collections. No evidence of mass or mas s effect. Normal fox-white differentiation. Inspissated secretions with partial opacification right frontoethmoidal recess..Normal visualized sof t tissues. Intracranial vascular calcification. Notified Dr. Mane at 12/02/2019 4:[address]/CT head wo con* [id number] IMPRESSION: 1. No evidence of intracranial hemorrhage or mass effect. 2. Moderate small vessel changes with moderate parenchymal volume loss. 3. No changes since November 22, 2019 4. Inspissated secretions with partial opacification right frontoethmoidal rec ess. 5. Mastoid air cells well aerated.
--- NOTE | 2019-12-02 14:38 | ED_ITS ---
Entered by Maylin Siddiqui, acting as scribe for Taz Aguirre DO Dec 02, 2019 14:10 Documented by User: Jose Snyder MD 12/02/19 19:35 HPI - Psych General: Chief Complaint: Psychiatric Symptoms Stated Complaint: CONFUSION Time Seen by Provider: 12/02/19 14:29 PFSH ED PFSH: Medical History Attention deficit disorder Carotid stenosis Cataract COPD (chronic obstructive pulmonary disease) CVA (cerebrovascular accident) cva 3 weeks ago Diabetes 1.5, managed as type 2 Gout Hypertension Malignant neoplasm of lateral wall of bladder Sleep apnea Surgical History H/O hemorrhoidectomy H/O vasectomy History of penile implant Requires deflation before catheter placement History of total right knee replacement Status post carotid surgery Family History Father , at age 59-pneumonia Arthritis Mother , at age 89 Dementia Social History Smoking and tobacco status: former smoker Alcohol intake: never Lives independently: No Household members: spouse Marital status: Current occupational status: retired History of recent travel: No MDM - Psych MDM Narrative: Medical decision making narrative: Keven presents here with generalized weakness and dehydration. Patient's creatinine is slightly elevated. Patient is well-appearing here with no signs of sepsis. Family states that he is not been eating much. Will admit for observation to further hydrate at this time. Spoke to hospitalist. Lab Data: Labs: Lab Results 12/02/19 12/02/19 12/02/19 Range/Units 14:50 15:20 15:25 WBC (4.0-10.0) 10^3/ uL RBC (4.1-5.3) 10^6/u L Hgb (11.7-16.6) g/dL Hct (42.0-52.0) % MCV (80-94) fL MCH (28.0-34.0) pg MCHC (30.0-36.0) g/dL RDW (12.1-15.1) % Plt Count (130-400) 10^3/c mm MPV (7.4-10.4) fL Neut % (Auto) % Lymph % (Auto) % Tift % (Auto) % Eos % (Auto) % Baso % (Auto) % Neut # (Auto) (1.8-7.7) 10^3/u L Lymph # (Auto) (0.8-4.8) 10^3/u L Tift # (Auto) (0.2-0.9) 10^3/u L Eos # (Auto) (0.0-0.8) 10^3/u L Baso # (Auto) (0.0-0.1) 10^3/u L Nucleated RBC % (a uto) % Nucleated RBCs # /100WBC Specimen Type Arterial Sample Site Radial, right ABG pH 7.43 (7.35-7.45) ABG pCO2 35.5 (35-45) mmHg ABG pO2 88.7 (80.0-100.0) mmH g ABG HCO3 23.5 (22-26) mmol/L ABG O2 Saturation 98.0 ABG Base Excess -0.4 (-2.0-2.0) mmol/ L Cesario Test Pos A-a O2 Gradient 13.3 H (5-10) mmHg Hematocrit 37.7 L (42-52) % Hgb O2 Saturation 97.1 (95-100) % Carboxyhemoglobin 0.7 (0.4-20.1) %THgb Methemoglobin 0.2 L (0.4-1.5) % Total Hemoglobin 12.3 L (14-18) g/dL Sodium 139.0 (131-143) mmol/L Potassium 4.1 (3.5-5.0) mmol/L Glucose 117.0 H (70-115) mg/dL Ionized Calcium 1.2 (1.1-1.4) mmol/L O2 Delivery Device Room air FiO2 21.0 % Forgesmith ID ed Chloride (98-107) mmol/L Carbon Dioxide (22-29) mmol/L Anion Gap (5-19) BUN (8-23) mg/dL Creatinine (0.7-1.2) mg/dL POC Glucose (70-110) mg/dL Calculated Osmolal ity (285-295) mOsm/k g Lactic Acid (0.5-2.2) mmol/L Calcium (8.5-10.5) mg/dL Total Bilirubin (0.15-1.2) mg/dL AST (0-40) U/L ALT (0-41) U/L Alkaline Phosphata se (40-130) IU/L Creatine Kinase (39-308) U/L Total Protein (6.6-8.7) g/dL Albumin (3.5-5.2) g/dL Globulin (1.3-4.6) g/dL Lipase (13-60) U/L Vitamin B12 (232-1245) pg/mL TSH (0.27-4.20) uIU/ mL Urine Color (Yellow) Urine Appearance (CLEAR) Urine pH (5-7) Ur Specific Gravit y (1.005-1.030) Urine Protein (Negative) Urine Glucose (UA) (Normal) Urine Ketones (Negative) Urine Blood (Negative) Urine Nitrate (Negative) Urine Bilirubin (NEGATIVE) Urine Urobilinogen (Negative) mg/dL Ur Leukocyte Darling ase (Negative) Urine Opiates Scre en (Negative) ng/mL Ur Barbiturates Sc reen (Negative) ng/mL Ur Phencyclidine S crn (Negative) ng/mL Ur Amphetamines Sc reen (Negative) ng/mL U Benzodiazepines Scrn (Negative) ng/mL Urine Cocaine Scre en (Negative) ng/mL U Marijuana (THC) Screen (Negative) ng/mL Serum Ketones Negative (Negative) Influenza Type A A g Negative (Negative) POC Influenza B Ag Negative (Negative) 12/02/19 12/02/19 12/02/19 Range/Units 15:53 15:55 15:55 WBC 8.6 (4.0-10.0) 10^3/ uL RBC 3.98 L (4.1-5.3) 10^6/u L Hgb 12.2 (11.7-16.6) g/dL Hct 37.3 L (42.0-52.0) % MCV 93.7 (80-94) fL MCH 30.7 (28.0-34.0) pg MCHC 32.7 (30.0-36.0) g/dL RDW 13.3 (12.1-15.1) % Plt Count 241 (130-400) 10^3/c mm MPV 9.8 (7.4-10.4) fL Neut % (Auto) 72.1 % Lymph % (Auto) 14.2 % Tift % (Auto) 8.3 % Eos % (Auto) 4.6 % Baso % (Auto) 0.2 % Neut # (Auto) 6.2 (1.8-7.7) 10^3/u L Lymph # (Auto) 1.2 (0.8-4.8) 10^3/u L Tift # (Auto) 0.7 (0.2-0.9) 10^3/u L Eos # (Auto) 0.4 (0.0-0.8) 10^3/u L Baso # (Auto) 0.0 (0.0-0.1) 10^3/u L Nucleated RBC % (a uto) 0 % Nucleated RBCs # 0.0 /100WBC Specimen Type Sample Site ABG pH (7.35-7.45) ABG pCO2 (35-45) mmHg ABG pO2 (80.0-100.0) mmH g ABG HCO3 (22-26) mmol/L ABG O2 Saturation ABG Base Excess (-2.0-2.0) mmol/ L Cesario Test A-a O2 Gradient (5-10) mmHg Hematocrit (42-52) % Hgb O2 Saturation (95-100) % Carboxyhemoglobin (0.4-20.1) %THgb Methemoglobin (0.4-1.5) % Total Hemoglobin (14-18) g/dL Sodium 138 (131-143) mmol/L Potassium 4.6 (3.5-5.0) mmol/L Glucose 134 H (70-115) mg/dL Ionized Calcium (1.1-1.4) mmol/L O2 Delivery Device FiO2 % Forgesmith ID Chloride 102 (98-107) mmol/L Carbon Dioxide 25 (22-29) mmol/L Anion Gap 15.6 (5-19) BUN 39 H (8-23) mg/dL Creatinine 2.1 H (0.7-1.2) mg/dL POC Glucose (70-110) mg/dL Calculated Osmolal ity 286 (285-295) mOsm/k g Lactic Acid 1.1 (0.5-2.2) mmol/L Calcium 9.8 (8.5-10.5) mg/dL Total Bilirubin 0.7 (0.15-1.2) mg/dL AST 12 (0-40) U/L ALT 15 (0-41) U/L Alkaline Phosphata se 113 (40-130) IU/L Creatine Kinase 67 (39-308) U/L Total Protein 6.7 (6.6-8.7) g/dL Albumin 3.8 (3.5-5.2) g/dL Globulin 2.9 (1.3-4.6) g/dL Lipase 64 H (13-60) U/L Vitamin B12 (232-1245) pg/mL TSH (0.27-4.20) uIU/ mL Urine Color (Yellow) Urine Appearance (CLEAR) Urine pH (5-7) Ur Specific Gravit y (1.005-1.030) Urine Protein (Negative) Urine Glucose (UA) (Normal) Urine Ketones (Negative) Urine Blood (Negative) Urine Nitrate (Negative) Urine Bilirubin (NEGATIVE) Urine Urobilinogen (Negative) mg/dL Ur Leukocyte Darling ase (Negative) Urine Opiates Scre en (Negative) ng/mL Ur Barbiturates Sc reen (Negative) ng/mL Ur Phencyclidine S crn (Negative) ng/mL Ur Amphetamines Sc reen (Negative) ng/mL U Benzodiazepines Scrn (Negative) ng/mL Urine Cocaine Scre en (Negative) ng/mL U Marijuana (THC) Screen (Negative) ng/mL Serum Ketones (Negative) Influenza Type A A g (Negative) POC Influenza B Ag (Negative) 12/02/19 12/02/19 12/02/19 Range/Units 15:55 16:27 16:27 WBC (4.0-10.0) 10^3/ uL RBC (4.1-5.3) 10^6/u L Hgb (11.7-16.6) g/dL Hct (42.0-52.0) % MCV (80-94) fL MCH (28.0-34.0) pg MCHC (30.0-36.0) g/dL RDW (12.1-15.1) % Plt Count (130-400) 10^3/c mm MPV (7.4-10.4) fL Neut % (Auto) % Lymph % (Auto) % Tift % (Auto) % Eos % (Auto) % Baso % (Auto) % Neut # (Auto) (1.8-7.7) 10^3/u L Lymph # (Auto) (0.8-4.8) 10^3/u L Tift # (Auto) (0.2-0.9) 10^3/u L Eos # (Auto) (0.0-0.8) 10^3/u L Baso # (Auto) (0.0-0.1) 10^3/u L Nucleated RBC % (a uto) % Nucleated RBCs # /100WBC Specimen Type Sample Site ABG pH (7.35-7.45) ABG pCO2 (35-45) mmHg ABG pO2 (80.0-100.0) mmH g ABG HCO3 (22-26) mmol/L ABG O2 Saturation ABG Base Excess (-2.0-2.0) mmol/ L Cesario Test A-a O2 Gradient (5-10) mmHg Hematocrit (42-52) % Hgb O2 Saturation (95-100) % Carboxyhemoglobin (0.4-20.1) %THgb Methemoglobin (0.4-1.5) % Total Hemoglobin (14-18) g/dL Sodium (131-143) mmol/L Potassium (3.5-5.0) mmol/L Glucose (70-115) mg/dL Ionized Calcium (1.1-1.4) mmol/L O2 Delivery Device FiO2 % Forgesmith ID Chloride (98-107) mmol/L Carbon Dioxide (22-29) mmol/L Anion Gap (5-19) BUN (8-23) mg/dL Creatinine (0.7-1.2) mg/dL POC Glucose (70-110) mg/dL Calculated Osmolal ity (285-295) mOsm/k g Lactic Acid (0.5-2.2) mmol/L Calcium (8.5-10.5) mg/dL Total Bilirubin (0.15-1.2) mg/dL AST (0-40) U/L ALT (0-41) U/L Alkaline Phosphata se (40-130) IU/L Creatine Kinase (39-308) U/L Total Protein (6.6-8.7) g/dL Albumin (3.5-5.2) g/dL Globulin (1.3-4.6) g/dL Lipase (13-60) U/L Vitamin B12 337 (232-1245) pg/mL TSH 3.26 (0.27-4.20) uIU/ mL Urine Color Yellow (Yellow) Urine Appearance Clear (CLEAR) Urine pH 6 (5-7) Ur Specific Gravit y 1.005 (1.005-1.030) Urine Protein Neg (Negative) Urine Glucose (UA) Norm (Normal) Urine Ketones Negative (Negative) Urine Blood Neg (Negative) Urine Nitrate Negative (Negative) Urine Bilirubin Neg (NEGATIVE) Urine Urobilinogen Norm (Negative) mg/dL Ur Leukocyte Darling ase Negative (Negative) Urine Opiates Scre en Negative (Negative) ng/mL Ur Barbiturates Sc reen Negative (Negative) ng/mL Ur Phencyclidine S crn Negative (Negative) ng/mL Ur Amphetamines Sc reen Negative (Negative) ng/mL U Benzodiazepines Scrn Negative (Negative) ng/mL Urine Cocaine Scre en Negative (Negative) ng/mL U Marijuana (THC) Screen Negative (Negative) ng/mL Serum Ketones (Negative) Influenza Type A A g (Negative) POC Influenza B Ag (Negative) 12/02/19 12/03/19 12/03/19 Range/Units 22:14 06:32 10:52 WBC (4.0-10.0) 10^3/ uL RBC (4.1-5.3) 10^6/u L Hgb (11.7-16.6) g/dL Hct (42.0-52.0) % MCV (80-94) fL MCH (28.0-34.0) pg MCHC (30.0-36.0) g/dL RDW (12.1-15.1) % Plt Count (130-400) 10^3/c mm MPV (7.4-10.4) fL Neut % (Auto) % Lymph % (Auto) % Tift % (Auto) % Eos % (Auto) % Baso % (Auto) % Neut # (Auto) (1.8-7.7) 10^3/u L Lymph # (Auto) (0.8-4.8) 10^3/u L Tift # (Auto) (0.2-0.9) 10^3/u L Eos # (Auto) (0.0-0.8) 10^3/u L Baso # (Auto) (0.0-0.1) 10^3/u L Nucleated RBC % (a uto) % Nucleated RBCs # /100WBC Specimen Type Sample Site ABG pH (7.35-7.45) ABG pCO2 (35-45) mmHg ABG pO2 (80.0-100.0) mmH g ABG HCO3 (22-26) mmol/L ABG O2 Saturation ABG Base Excess (-2.0-2.0) mmol/ L Cesario Test A-a O2 Gradient (5-10) mmHg Hematocrit (42-52) % Hgb O2 Saturation (95-100) % Carboxyhemoglobin (0.4-20.1) %THgb Methemoglobin (0.4-1.5) % Total Hemoglobin (14-18) g/dL Sodium (131-143) mmol/L Potassium (3.5-5.0) mmol/L Glucose (70-115) mg/dL Ionized Calcium (1.1-1.4) mmol/L O2 Delivery Device FiO2 % Forgesmith ID Chloride (98-107) mmol/L Carbon Dioxide (22-29) mmol/L Anion Gap (5-19) BUN (8-23) mg/dL Creatinine (0.7-1.2) mg/dL POC Glucose 204 119 211 (70-110) mg/dL Calculated Osmolal ity (285-295) mOsm/k g Lactic Acid (0.5-2.2) mmol/L Calcium (8.5-10.5) mg/dL Total Bilirubin (0.15-1.2) mg/dL AST (0-40) U/L ALT (0-41) U/L Alkaline Phosphata se (40-130) IU/L Creatine Kinase (39-308) U/L Total Protein (6.6-8.7) g/dL Albumin (3.5-5.2) g/dL Globulin (1.3-4.6) g/dL Lipase (13-60) U/L Vitamin B12 (232-1245) pg/mL TSH (0.27-4.20) uIU/ mL Urine Color (Yellow) Urine Appearance (CLEAR) Urine pH (5-7) Ur Specific Gravit y (1.005-1.030) Urine Protein (Negative) Urine Glucose (UA) (Normal) Urine Ketones (Negative) Urine Blood (Negative) Urine Nitrate (Negative) Urine Bilirubin (NEGATIVE) Urine Urobilinogen (Negative) mg/dL Ur Leukocyte Darling ase (Negative) Urine Opiates Scre en (Negative) ng/mL Ur Barbiturates Sc reen (Negative) ng/mL Ur Phencyclidine S crn (Negative) ng/mL Ur Amphetamines Sc reen (Negative) ng/mL U Benzodiazepines Scrn (Negative) ng/mL Urine Cocaine Scre en (Negative) ng/mL U Marijuana (THC) Screen (Negative) ng/mL Serum Ketones (Negative) Influenza Type A A g (Negative) POC Influenza B Ag (Negative) Imaging Data^: CT Head: Radiologist's impression: [place] [address] CT Scan Report Signed Patient: Neha Pruett Unit #: [id number] : 1935 Age/Sex: 84 / M ADM Date: 12/02/19 Loc: ER Room/Bed: Attending Dr: Ordering Provider/Ordering MD: Taz Aguirre DO Date of Service: 12/02/19 Procedure(s): CT abdomen pelvis con [id number] Accession Number(s): [id number] Report Number: [id number] PROCEDURE INFORMATION: Exam: CT Abdomen And Pelvis Without Contrast Exam date and time: 12/02/2019 4:33 PM Age: 84 years old Clinical indication: Abdominal pain; Prior surgery; Additional info: Abd pain TECHNIQUE: Imaging protocol: Computed tomography of the abdomen and pelvis without contrast. Total DLP: 1159.31 mGy-cm Radiation optimization: All CT scans at this facility use at least one of these dose optimization techniques: automated exposure control; mA and/or kV adjustment per patient size (includes targeted exams where dose is matched to clinical indication); or iterative reconstruction. COMPARISON: [facility] Renal 04/10/2017 3:19 PM FINDINGS: Lungs: Mild bibasilar atelectasis and/or infiltrate and/or scarring. Liver: Normal. No mass. Gallbladder and bile ducts: Multiple gallstones within the gallbladder. Pancreas: Normal. No ductal dilation. Spleen: Normal. No splenomegaly. Adrenals: 1.8 cm low-density left adrenal nodule suggesting probable benign adrenal adenoma or adrenal myelolipoma. No followup needed. Kidneys and ureters: Multiple right renal cysts with the largest measuring > 1.0 cm . Multiple left renal cysts with the largest measuring > 1.0 cm. Small vessel arterial calcifications in the renal lia bilaterally which are often associated with chronic renal failure. Stomach and bowel: Unremarkable. No obstruction. No mucosal thickening. Appendix: No evidence of appendicitis. Intraperitoneal space: Unremarkable. No free air. No significant fluid collection. Vasculature: Severe calcified coronary artery disease. Calcification of the abdominal aorta and/or iliac arteries consistent with atherosclerotic vessel disease. One or more calcified pelvic phleboliths. Lymph nodes: Unremarkable. No enlarged lymph nodes. Bladder: Unremarkable as visualized. Reproductive: One or more penile implants. Bones/joints: Dextroscoliosis. Severe multilevel spine degenerative changes including degenerative disc disease, spondylosis and facet degenerative changes. Soft tissues: Unremarkable. CT/CT abdomen pelvis wo con [id number] IMPRESSION: 1. Severe calcified coronary artery disease. 2. Multiple gallstones within the gallbladder. 3. 1.8 cm low-density left adrenal nodule suggesting probable benign adrenal adenoma or adrenal myelolipoma. No followup needed. CT Abd/Pel: Radiologist's impression: [address] [address] [address] Scan Report Signed Patient: Neha Pruett Unit #: [id number] : 1935 Age/Sex: 84 / M ADM Date: 09/10 Loc: ER Room/Bed: Attending Dr: Ordering Provider/Ordering MD: Taz Aguirre DO Date of Service: 12/02/19 Procedure(s): CT abdomen pelvis wo con [id number] Accession Number(s): [id number] Report Number: [id number] PROCEDURE INFORMATION: Exam: CT Abdomen And Pelvis Without Contrast Exam date and time: 12/02/2019 4:33 PM Age: 84 years old Clinical indication: Abdominal pain; Prior surgery; Additional info: Abd pain TECHNIQUE: Imaging protocol: Computed tomography of the abdomen and pelvis without contrast. Total DLP: 1159.31 mGy-cm Radiation optimization: All CT scans at this facility use at least one of these dose optimization techniques: automated exposure control; mA and/or kV adjustment per patient size (includes targeted exams where dose is matched to clinical indication); or iterative reconstruction. COMPARISON: [facility] Renal 04/10/2017 3:19 PM FINDINGS: Lungs: Mild bibasilar atelectasis and/or infiltrate and/or scarring. Liver: Normal. No mass. Gallbladder and bile ducts: Multiple gallstones within the gallbladder. Pancreas: Normal. No ductal dilation. Spleen: Normal. No splenomegaly. Adrenals: 1.8 cm low-density left adrenal nodule suggesting probable benign adrenal adenoma or adrenal myelolipoma. No followup needed. Kidneys and ureters: Multiple right renal cysts with the largest measuring > 1.0 cm . Multiple left renal cysts with the largest measuring > 1.0 cm. Small vessel arterial calcifications in the renal lia bilaterally which are often associated with chronic renal failure. Stomach and bowel: Unremarkable. No obstruction. No mucosal thickening. Appendix: No evidence of appendicitis. Intraperitoneal space: Unremarkable. No free air. No significant fluid collection. Vasculature: Severe calcified coronary artery disease. Calcification of the abdominal aorta and/or iliac arteries consistent with atherosclerotic vessel disease. One or more calcified pelvic phleboliths. Lymph nodes: Unremarkable. No enlarged lymph nodes. Bladder: Unremarkable as visualized. Reproductive: One or more penile implants. Bones/joints: Dextroscoliosis. Severe multilevel spine degenerative changes including degenerative disc disease, spondylosis and facet degenerative changes. Soft tissues: Unremarkable. CT/CT abdomen pelvis wo con [id number] IMPRESSION: 1. Severe calcified coronary artery disease. 2. Multiple gallstones within the gallbladder. 3. 1.8 cm low-density left adrenal nodule suggesting probable benign adrenal adenoma or adrenal myelolipoma. No followup needed. Discharge Plan Discharge Patient Disposition: Admitted As Inpatient Admit Provider: Mani Cruz Clinical Impression: Weakness Condition: Stable Referrals: [facility] [Outside] [facility] [Outside] Federico Hinton MD [Primary Care Provider] - Discharge Date/Time: 12/02/19 20:15 Coding Level of Care Code ED Financial Services Consultant for Chg Fwd Documented by User: Taz Aguirre DO 12/04/19 10:26 HPI - Psych General: Chief Complaint: Psychiatric Symptoms Stated Complaint: CONFUSION Time Seen by Provider: 12/02/19 14:29 Source: patient and EMS Mode of arrival: EMS Limitations: no limitations History of Present Illness: HPI Narrative: 84-year-old male sent to the emergency room by his primary care doctor. He was in the office was very weak had difficult time standing and nearly had a syncopal episode. He is being a progressively weak at home. He has had a previous right carotid endarterectomy and had some complications. He has had some hallucinations visual and audio as well. He is awake and alert when in the emergency room here but is difficult time answering questions in terms of place and time he is able to recognize familiar people at the bedside. Denies any recent hematochezia hematemesis coffee-ground emesis denies any dysuria injury or frequency denies any cough or chest pain or significant shortness of breath. MD complaint: other (halluicnations ) Onset (ago): week(s) (1 week) Duration: getting worse History of same: Yes Relieving factors: none Exacerbating factors: none Associated psychiatric symptoms: auditory hallucinations and visual hallucinations Associated symptoms: Reports auditory hallucinations and visual hallucinations Treatments prior to arrival: other (pt was at [facility] sent to ED for psych consult or longterm placement) Review of Systems Const: Denies: fever, chills, body aches, change in appetite, fatigue or malaise ENMT: Denies: throat pain, ear pain, nasal discharge or nasal congestion Card: Denies: chest pain, edema, shortness of breath on exertion or shortness of breath when lying down Resp: Denies: shortness of breath, productive cough or non-productive cough GI: Denies: abdominal pain, nausea, vomiting, vomiting blood, coffee grounds in vomit, diarrhea, constipation, bloating, blood in stool or black tarry stool : Denies: flank pain, painful urination, urinary frequency or urinary urgency Skin/Breast: Denies: rash or itching Psych: Reports: visual hallucinations and auditory hallucinations PFSH ED PFSH: Medical History Attention deficit disorder Carotid stenosis Cataract COPD (chronic obstructive pulmonary disease) CVA (cerebrovascular accident) cva 3 weeks ago Diabetes 1.5, managed as type 2 Gout Hypertension Malignant neoplasm of lateral wall of bladder Sleep apnea Surgical History H/O hemorrhoidectomy H/O vasectomy History of penile implant Requires deflation before catheter placement History of total right knee replacement Status post carotid surgery Family History Father , at age 59-pneumonia Arthritis Mother , at age 89 Dementia Social History Smoking and tobacco status: former smoker Alcohol intake: never Lives independently: No Household members: spouse Marital status: Current occupational status: retired History of recent travel: No Physical Exam Const: GENERAL APPEARANCE: cooperative, comfortable, well kempt and well developed HENMT: COMMON NORMALS: normocephalic, head/scalp atraumatic, EAC's normal, TM's normal bilaterally, external nose normal, moist oral mucous membranes and oropharynx normal HEAD & SCALP: normocephalic and atraumatic NOSE: external nose normal EXTERNAL AUDITORY CANAL: EAC's normal TYMPANIC MEMBRANE: TM's normal bilaterally MOUTH: oral and palatal mucosa normal, lip normal and tongue normal THROAT: posterior oropharynx normal and tonsils normal Eye: COMMON NORMALS: PERRL, EOMs intact bilaterally, conjunctivae normal and no scleral icterus CONJUNCTIVA: Yes conjunctivae normal PUPIL: Yes PERRL Neck/C-Spine: COMMON NORMALS: full ROM, no lymphadenopathy, supple, no meningeal signs and thyroid normal THYROID: thyroid normal and asymmetrical Lymph: LYMPHATIC: no lymphadenopathy noted Resp: COMMON NORMALS: normal respiratory effort, no retractions, no use of accessory muscles and clear to auscultation bilaterally AUSCULTATION: clear to auscultation bilaterally Cardio: COMMON NORMALS: regular rate and regular rhythm RATE: regular rate RHYTHM: regular rhythm HEART SOUNDS: no murmurs GI: COMMON NORMALS: normal to inspection, nondistended, normoactive bowel sounds, soft to palpation and no hepatosplenomegaly PALPATION: Yes soft and Yes no hepatosplenomegaly : COMMON NORMALS: Yes no CVA tenderness BLADDER/KIDNEY EXAM: Yes no CVA tenderness Back/Pelvis: COMMON NORMALS: no CVA tenderness LUMBAR SPINE/LOWER BACK: Yes normal to inspection Extremity: COMMON NORMALS: no clubbing, cyanosis or edema, no calf tenderness and no pedal edema Neuro: MENINGEAL SIGNS: Yes no meningeal signs OTHER: No focal neurologic deficits are noted. No significant findings on stroke score examining. Psych: APPEARANCE: Yes well kempt Skin: COMMON NORMALS: no rashes or lesions noted and skin turgor normal GENERAL SKIN EXAM: no rashes or lesions noted and turgor normal MDM - Psych Lab Data: Labs: Lab Results 12/02/19 12/02/19 12/02/19 Range/Units 14:50 15:20 15:25 WBC (4.0-10.0) 10^3/ uL RBC (4.1-5.3) 10^6/u L Hgb (11.7-16.6) g/dL Hct (42.0-52.0) % MCV (80-94) fL MCH (28.0-34.0) pg MCHC (30.0-36.0) g/dL RDW (12.1-15.1) % Plt Count (130-400) 10^3/c mm MPV (7.4-10.4) fL Neut % (Auto) % Lymph % (Auto) % Tift % (Auto) % Eos % (Auto) % Baso % (Auto) % Neut # (Auto) (1.8-7.7) 10^3/u L Lymph # (Auto) (0.8-4.8) 10^3/u L Tift # (Auto) (0.2-0.9) 10^3/u L Eos # (Auto) (0.0-0.8) 10^3/u L Baso # (Auto) (0.0-0.1) 10^3/u L Nucleated RBC % (a uto) % Nucleated RBCs # /100WBC Specimen Type Arterial Sample Site Radial, right ABG pH 7.43 (7.35-7.45) ABG pCO2 35.5 (35-45) mmHg ABG pO2 88.7 (80.0-100.0) mmH g ABG HCO3 23.5 (22-26) mmol/L ABG O2 Saturation 98.0 ABG Base Excess -0.4 (-2.0-2.0) mmol/ L Cesario Test Pos A-a O2 Gradient 13.3 H (5-10) mmHg Hematocrit 37.7 L (42-52) % Hgb O2 Saturation 97.1 (95-100) % Carboxyhemoglobin 0.7 (0.4-20.1) %THgb Methemoglobin 0.2 L (0.4-1.5) % Total Hemoglobin 12.3 L (14-18) g/dL Sodium 139.0 (131-143) mmol/L Potassium 4.1 (3.5-5.0) mmol/L Glucose 117.0 H (70-115) mg/dL Ionized Calcium 1.2 (1.1-1.4) mmol/L O2 Delivery Device Room air FiO2 21.0 % Forgesmith ID ed Chloride (98-107) mmol/L Carbon Dioxide (22-29) mmol/L Anion Gap (5-19) BUN (8-23) mg/dL Creatinine (0.7-1.2) mg/dL POC Glucose (70-110) mg/dL Calculated Osmolal ity (285-295) mOsm/k g Lactic Acid (0.5-2.2) mmol/L Calcium (8.5-10.5) mg/dL Total Bilirubin (0.15-1.2) mg/dL AST (0-40) U/L ALT (0-41) U/L Alkaline Phosphata se (40-130) IU/L Creatine Kinase (39-308) U/L Total Protein (6.6-8.7) g/dL Albumin (3.5-5.2) g/dL Globulin (1.3-4.6) g/dL Lipase (13-60) U/L Vitamin B12 (232-1245) pg/mL TSH (0.27-4.20) uIU/ mL Urine Color (Yellow) Urine Appearance (CLEAR) Urine pH (5-7) Ur Specific Gravit y (1.005-1.030) Urine Protein (Negative) Urine Glucose (UA) (Normal) Urine Ketones (Negative) Urine Blood (Negative) Urine Nitrate (Negative) Urine Bilirubin (NEGATIVE) Urine Urobilinogen (Negative) mg/dL Ur Leukocyte Darling ase (Negative) Urine Opiates Scre en (Negative) ng/mL Ur Barbiturates Sc reen (Negative) ng/mL Ur Phencyclidine S crn (Negative) ng/mL Ur Amphetamines Sc reen (Negative) ng/mL U Benzodiazepines Scrn (Negative) ng/mL Urine Cocaine Scre en (Negative) ng/mL U Marijuana (THC) Screen (Negative) ng/mL Serum Ketones Negative (Negative) Influenza Type A A g Negative (Negative) POC Influenza B Ag Negative (Negative) 12/02/19 12/02/19 12/02/19 Range/Units 15:53 15:55 15:55 WBC 8.6 (4.0-10.0) 10^3/ uL RBC 3.98 L (4.1-5.3) 10^6/u L Hgb 12.2 (11.7-16.6) g/dL Hct 37.3 L (42.0-52.0) % MCV 93.7 (80-94) fL MCH 30.7 (28.0-34.0) pg MCHC 32.7 (30.0-36.0) g/dL RDW 13.3 (12.1-15.1) % Plt Count 241 (130-400) 10^3/c mm MPV 9.8 (7.4-10.4) fL Neut % (Auto) 72.1 % Lymph % (Auto) 14.2 % Tift % (Auto) 8.3 % Eos % (Auto) 4.6 % Baso % (Auto) 0.2 % Neut # (Auto) 6.2 (1.8-7.7) 10^3/u L Lymph # (Auto) 1.2 (0.8-4.8) 10^3/u L Tift # (Auto) 0.7 (0.2-0.9) 10^3/u L Eos # (Auto) 0.4 (0.0-0.8) 10^3/u L Baso # (Auto) 0.0 (0.0-0.1) 10^3/u L Nucleated RBC % (a uto) 0 % Nucleated RBCs # 0.0 /100WBC Specimen Type Sample Site ABG pH (7.35-7.45) ABG pCO2 (35-45) mmHg ABG pO2 (80.0-100.0) mmH g ABG HCO3 (22-26) mmol/L ABG O2 Saturation ABG Base Excess (-2.0-2.0) mmol/ L Cesario Test A-a O2 Gradient (5-10) mmHg Hematocrit (42-52) % Hgb O2 Saturation (95-100) % Carboxyhemoglobin (0.4-20.1) %THgb Methemoglobin (0.4-1.5) % Total Hemoglobin (14-18) g/dL Sodium 138 (131-143) mmol/L Potassium 4.6 (3.5-5.0) mmol/L Glucose 134 H (70-115) mg/dL Ionized Calcium (1.1-1.4) mmol/L O2 Delivery Device FiO2 % Forgesmith ID Chloride 102 (98-107) mmol/L Carbon Dioxide 25 (22-29) mmol/L Anion Gap 15.6 (5-19) BUN 39 H (8-23) mg/dL Creatinine 2.1 H (0.7-1.2) mg/dL POC Glucose (70-110) mg/dL Calculated Osmolal ity 286 (285-295) mOsm/k g Lactic Acid 1.1 (0.5-2.2) mmol/L Calcium 9.8 (8.5-10.5) mg/dL Total Bilirubin 0.7 (0.15-1.2) mg/dL AST 12 (0-40) U/L ALT 15 (0-41) U/L Alkaline Phosphata se 113 (40-130) IU/L Creatine Kinase 67 (39-308) U/L Total Protein 6.7 (6.6-8.7) g/dL Albumin 3.8 (3.5-5.2) g/dL Globulin 2.9 (1.3-4.6) g/dL Lipase 64 H (13-60) U/L Vitamin B12 (232-1245) pg/mL TSH (0.27-4.20) uIU/ mL Urine Color (Yellow) Urine Appearance (CLEAR) Urine pH (5-7) Ur Specific Gravit y (1.005-1.030) Urine Protein (Negative) Urine Glucose (UA) (Normal) Urine Ketones (Negative) Urine Blood (Negative) Urine Nitrate (Negative) Urine Bilirubin (NEGATIVE) Urine Urobilinogen (Negative) mg/dL Ur Leukocyte Darling ase (Negative) Urine Opiates Scre en (Negative) ng/mL Ur Barbiturates Sc reen (Negative) ng/mL Ur Phencyclidine S crn (Negative) ng/mL Ur Amphetamines Sc reen (Negative) ng/mL U Benzodiazepines Scrn (Negative) ng/mL Urine Cocaine Scre en (Negative) ng/mL U Marijuana (THC) Screen (Negative) ng/mL Serum Ketones (Negative) Influenza Type A A g (Negative) POC Influenza B Ag (Negative) 12/02/19 12/02/19 12/02/19 Range/Units 15:55 16:27 16:27 WBC (4.0-10.0) 10^3/ uL RBC (4.1-5.3) 10^6/u L Hgb (11.7-16.6) g/dL Hct (42.0-52.0) % MCV (80-94) fL MCH (28.0-34.0) pg MCHC (30.0-36.0) g/dL RDW (12.1-15.1) % Plt Count (130-400) 10^3/c mm MPV (7.4-10.4) fL Neut % (Auto) % Lymph % (Auto) % Tift % (Auto) % Eos % (Auto) % Baso % (Auto) % Neut # (Auto) (1.8-7.7) 10^3/u L Lymph # (Auto) (0.8-4.8) 10^3/u L Tift # (Auto) (0.2-0.9) 10^3/u L Eos # (Auto) (0.0-0.8) 10^3/u L Baso # (Auto) (0.0-0.1) 10^3/u L Nucleated RBC % (a uto) % Nucleated RBCs # /100WBC Specimen Type Sample Site ABG pH (7.35-7.45) ABG pCO2 (35-45) mmHg ABG pO2 (80.0-100.0) mmH g ABG HCO3 (22-26) mmol/L ABG O2 Saturation ABG Base Excess (-2.0-2.0) mmol/ L Cesario Test A-a O2 Gradient (5-10) mmHg Hematocrit (42-52) % Hgb O2 Saturation (95-100) % Carboxyhemoglobin (0.4-20.1) %THgb Methemoglobin (0.4-1.5) % Total Hemoglobin (14-18) g/dL Sodium (131-143) mmol/L Potassium (3.5-5.0) mmol/L Glucose (70-115) mg/dL Ionized Calcium (1.1-1.4) mmol/L O2 Delivery Device FiO2 % Forgesmith ID Chloride (98-107) mmol/L Carbon Dioxide (22-29) mmol/L Anion Gap (5-19) BUN (8-23) mg/dL Creatinine (0.7-1.2) mg/dL POC Glucose (70-110) mg/dL Calculated Osmolal ity (285-295) mOsm/k g Lactic Acid (0.5-2.2) mmol/L Calcium (8.5-10.5) mg/dL Total Bilirubin (0.15-1.2) mg/dL AST (0-40) U/L ALT (0-41) U/L Alkaline Phosphata se (40-130) IU/L Creatine Kinase (39-308) U/L Total Protein (6.6-8.7) g/dL Albumin (3.5-5.2) g/dL Globulin (1.3-4.6) g/dL Lipase (13-60) U/L Vitamin B12 337 (232-1245) pg/mL TSH 3.26 (0.27-4.20) uIU/ mL Urine Color Yellow (Yellow) Urine Appearance Clear (CLEAR) Urine pH 6 (5-7) Ur Specific Gravit y 1.005 (1.005-1.030) Urine Protein Neg (Negative) Urine Glucose (UA) Norm (Normal) Urine Ketones Negative (Negative) Urine Blood Neg (Negative) Urine Nitrate Negative (Negative) Urine Bilirubin Neg (NEGATIVE) Urine Urobilinogen Norm (Negative) mg/dL Ur Leukocyte Darling ase Negative (Negative) Urine Opiates Scre en Negative (Negative) ng/mL Ur Barbiturates Sc reen Negative (Negative) ng/mL Ur Phencyclidine S crn Negative (Negative) ng/mL Ur Amphetamines Sc reen Negative (Negative) ng/mL U Benzodiazepines Scrn Negative (Negative) ng/mL Urine Cocaine Scre en Negative (Negative) ng/mL U Marijuana (THC) Screen Negative (Negative) ng/mL Serum Ketones (Negative) Influenza Type A A g (Negative) POC Influenza B Ag (Negative) 12/02/19 12/03/19 12/03/19 Range/Units 22:14 06:32 10:52 WBC (4.0-10.0) 10^3/ uL RBC (4.1-5.3) 10^6/u L Hgb (11.7-16.6) g/dL Hct (42.0-52.0) % MCV (80-94) fL MCH (28.0-34.0) pg MCHC (30.0-36.0) g/dL RDW (12.1-15.1) % Plt Count (130-400) 10^3/c mm MPV (7.4-10.4) fL Neut % (Auto) % Lymph % (Auto) % Tift % (Auto) % Eos % (Auto) % Baso % (Auto) % Neut # (Auto) (1.8-7.7) 10^3/u L Lymph # (Auto) (0.8-4.8) 10^3/u L Tift # (Auto) (0.2-0.9) 10^3/u L Eos # (Auto) (0.0-0.8) 10^3/u L Baso # (Auto) (0.0-0.1) 10^3/u L Nucleated RBC % (a uto) % Nucleated RBCs # /100WBC Specimen Type Sample Site ABG pH (7.35-7.45) ABG pCO2 (35-45) mmHg ABG pO2 (80.0-100.0) mmH g ABG HCO3 (22-26) mmol/L ABG O2 Saturation ABG Base Excess (-2.0-2.0) mmol/ L Cesario Test A-a O2 Gradient (5-10) mmHg Hematocrit (42-52) % Hgb O2 Saturation (95-100) % Carboxyhemoglobin (0.4-20.1) %THgb Methemoglobin (0.4-1.5) % Total Hemoglobin (14-18) g/dL Sodium (131-143) mmol/L Potassium (3.5-5.0) mmol/L Glucose (70-115) mg/dL Ionized Calcium (1.1-1.4) mmol/L O2 Delivery Device FiO2 % Forgesmith ID Chloride (98-107) mmol/L Carbon Dioxide (22-29) mmol/L Anion Gap (5-19) BUN (8-23) mg/dL Creatinine (0.7-1.2) mg/dL POC Glucose 204 119 211 (70-110) mg/dL Calculated Osmolal ity (285-295) mOsm/k g Lactic Acid (0.5-2.2) mmol/L Calcium (8.5-10.5) mg/dL Total Bilirubin (0.15-1.2) mg/dL AST (0-40) U/L ALT (0-41) U/L Alkaline Phosphata se (40-130) IU/L Creatine Kinase (39-308) U/L Total Protein (6.6-8.7) g/dL Albumin (3.5-5.2) g/dL Globulin (1.3-4.6) g/dL Lipase (13-60) U/L Vitamin B12 (232-1245) pg/mL TSH (0.27-4.20) uIU/ mL Urine Color (Yellow) Urine Appearance (CLEAR) Urine pH (5-7) Ur Specific Gravit y (1.005-1.030) Urine Protein (Negative) Urine Glucose (UA) (Normal) Urine Ketones (Negative) Urine Blood (Negative) Urine Nitrate (Negative) Urine Bilirubin (NEGATIVE) Urine Urobilinogen (Negative) mg/dL Ur Leukocyte Darling ase (Negative) Urine Opiates Scre en (Negative) ng/mL Ur Barbiturates Sc reen (Negative) ng/mL Ur Phencyclidine S crn (Negative) ng/mL Ur Amphetamines Sc reen (Negative) ng/mL U Benzodiazepines Scrn (Negative) ng/mL Urine Cocaine Scre en (Negative) ng/mL U Marijuana (THC) Screen (Negative) ng/mL Serum Ketones (Negative) Influenza Type A A g (Negative) POC Influenza B Ag (Negative) Imaging Data^: CXR: Radiologist's impression: [address] [address] XRay Report Signed Patient: Neha Pruett #: [id number] : 6Acct#:[id number] Age/Sex: 84 / MADM Date: 12/02/19 Loc: ERRoom/Bed: Attending Dr: Ordering Provider/Ordering MD: Taz Aguirre DO Date of Service: 12/02/19 Procedure(s): XR chest 1V portable [id number] Accession Number(s): [id number] Report Number: [id number] WS: [id number] Portable AP upright chest, 12/02/2019 Clinical Data: dyspnea/cough Comparison: Portable chest, 11/22/2019. Findings: No nodules, masses or effusions are seen. The heart is normal. The pulmonary vascularity is not increased. No pneumonia or pneumothorax is seen. There are scattered granulomas throughout both lungs. The patient has poor inspiratory effort. The aortic arch and descending aorta show calcification and tortuosity. Monitor leads on the chest wall. XR/XR chest 1V portable [id number] Impression: Atherosclerosis. Dictated By:Licha Hart MD Signed By:Licha Hart MDSigned Date/Time:12/02/19 1508 DD/ 1507 Discharge Plan Discharge Patient Disposition: Admitted As Inpatient Admit Provider: Mani Cruz Clinical Impression: Weakness Condition: Stable Referrals: [facility] [Outside] [facility] [Outside] Federico Hinton MD [Primary Care Provider] - Discharge Date/Time: 12/02/19 20:15 Coding Level of Care Code ED Financial Services Consultant for Chg Fwd The documentation recorded by the Artur blank Bridget Annette, accurately reflects the service I personally performed and the decisions made by Carla ceballos Curtis L, DO Dec 02, 2019 14:10
[2019-12-02 15:31] LABS: ABG PCO2 35.5 mmHg (35-45); ABG PH Result 7.43 (7.35-7.45); Alveolar-Arterial Oxygen Gradi 13.3 mmHg (5-10); Arterial Blood Gas Hematocrit 37.7 % (42-52); Base Excess ABG -0.4 mmol/L (-2.0-2.0); Blood Gas Allen Test Pos; Blood Gas Sample Site Radial, right; Blood Gas Sample Type Arterial; Carboxyhemoglobin 0.7 %THgb (0.4-20.1); HCO3 ABG 23.5 mmol/L (22-26); HGB O2 Sat 97.1 % (95-100); Ionized Calcium Level - ABG 1.2 mmol/L (1.1-1.4); Methemoglobin 0.2 % (0.4-1.5); Oxygen Device ROOM AIR; PO2 ABG 88.7 mmHg (80.0-100.0); Potassium Level - ABG 4.1 mmol/L (3.5-5.0); Total Hemoglobin 12.3 g/dL (14-18)
[2019-12-02 15:38] LABS: Influenza A by IFA Negative (Negative); Influenza B by IFA Negative (Negative)
[2019-12-02 15:50] LABS: Ketone (Acetest) Serum Negative (Negative)
[2019-12-02 15:58] LABS: Basophils % 0.2 %; Eosinophils # 0.4 10^3/uL (0.0-0.8); Eosinophils % 4.6 %; Hematocrit 37.3 % (42.0-52.0); Hemoglobin 12.2 g/dL (11.7-16.6); Lymphocytes # 1.2 10^3/uL (0.8-4.8); Lymphocytes % 14.2 %; Mean Corpuscular HGB Conc 32.7 g/dL (30.0-36.0); Mean Corpuscular Hemoglobin 30.7 pg (28.0-34.0); Mean Corpuscular Volume 93.7 fL (80-94); Mean Platelet Volume 9.8 fL (7.4-10.4); Monocytes # 0.7 10^3/uL (0.2-0.9); Monocytes % 8.3 %; Neutrophils # 6.2 10^3/uL (1.8-7.7); Neutrophils % 72.1 %; Nucleated Red Blood Cells % 0 %; Platelet Count 241 10^3/cmm (130-400); Red Blood Count 3.98 10^6/uL (4.1-5.3); Red Cell Distribution Width 13.3 % (12.1-15.1); White Blood Count 8.6 10^3/uL (4.0-10.0)
[2019-12-02 16:16] LABS: Alanine Aminotransferase 15 U/L (0-41); Albumin Level 3.8 g/dL (3.5-5.2); Alkaline Phosphatase 113 IU/L (40-130); Anion Gap 15.6 (5-19); Aspartate Amino Transferase 12 U/L (0-40); Blood Urea Nitrogen 39 mg/dL (8-23); Calcium 9.8 mg/dL (8.5-10.5); Carbon Dioxide 25 mmol/L (22-29); Chloride 102 mmol/L (98-107); Creatine Phosphokinase 67 U/L (39-308); Globulin 2.9 g/dL (1.3-4.6); Glucose 134 mg/dL (65-115); Lipase 64 U/L (13-60); Osmolality Calculated 286 mOsm/kg (285-295); Potassium 4.6 mmol/L (3.5-5.1); Sodium 138 mmol/L (136-145); Total Bilirubin 0.7 mg/dL (0.15-1.2); Total Protein 6.7 g/dL (6.6-8.7)
[2019-12-02 16:17] LABS: Lactic Sepsis W/Reflex 1.1 mmol/L (0.5-2.2)
--- NOTE | 2019-12-02 16:24 | CTR_ITS ---
PROCEDURE INFORMATION: Exam: CT Abdomen And Pelvis Without Contrast Exam date and time: 12/02/2019 4:33 PM Age: 84 years old Clinical indication: Abdominal pain; Prior surgery; Additional info: Abd pain TECHNIQUE: Imaging protocol: Computed tomography of the abdomen and pelvis without contrast. Total DLP: 1159.31 mGy-cm Radiation optimization: All CT scans at this facility use at least one of these dose optimization techniques: automated exposure control; mA and/or kV adjustment per patient size (includes targeted exams where dose is matched to clinical indication); or iterative reconstruction. COMPARISON: [facility] 04/10/2017 3:19 PM FINDINGS: Lungs: Mild bibasilar atelectasis and/or infiltrate and/or scarring. Liver: Normal. No mass. Gallbladder and bile ducts: Multiple gallstones within the gallbladder. Pancreas: Normal. No ductal dilation. Spleen: Normal. No splenomegaly. Adrenals: 1.8 cm low-density left adrenal nodule suggesting probable benign adrenal adenoma or adrenal myelolipoma. No followup needed. Kidneys and ureters: Multiple right renal cysts with the largest measuring > 1.0 cm . Multiple left renal cysts with the largest measuring > 1.0 cm. Small vessel arterial calcifications in the renal lia bilaterally which are often associated with chronic renal failure. Stomach and bowel: Unremarkable. No obstruction. No mucosal thickening. Appendix: No evidence of appendicitis. Intraperitoneal space: Unremarkable. No free air. No significant fluid collection. Vasculature: Severe calcified coronary artery disease. Calcification of the abdominal aorta and/or iliac arteries consistent with atherosclerotic vessel disease. One or more calcified pelvic phleboliths. Lymph nodes: Unremarkable. No enlarged lymph nodes. Bladder: Unremarkable as visualized. Reproductive: One or more penile implants. Bones/joints: Dextroscoliosis. Severe multilevel spine degenerative changes including degenerative disc disease, spondylosis and facet degenerative changes. Soft tissues: Unremarkable. CT/CT abdomen pelvis wo con [id number] IMPRESSION: 1. Severe calcified coronary artery disease. 2. Multiple gallstones within the gallbladder. 3. 1.8 cm low-density left adrenal nodule suggesting probable benign adrenal adenoma or adrenal myelolipoma. No followup needed. COMMENTS: Consistent with the [employer]'s Incidental Findings Committee white paper (J Am Adeel Radiol 2017): For any incidental adrenal lesion greater than 1.0 cm but less than 4.0 cm classified in this report as benign or likely benign (including classification as an adenoma or myelolipoma), no follow-up imaging is recommended per consensus recommendations based on imaging criteria. Further lab evaluation could be pursued if warranted based on clinical findings. Radiation Dose CTDIVOL = (mGy): DLP = 1159.31 (mGy-cm)
[2019-12-02 16:38] LABS: Add Urine Microscopic? NO
[2019-12-02 16:52] LABS: Amphetamines Screen Urine Negative (Negative); Barbiturates Screen Urine Negative (Negative); Benzodiazepines Screen Urine Negative (Negative); Cocaine Screen Urine Negative (Negative); Opiate Screen Urine Negative (Negative); PCP Screen Urine Negative (Negative); THC Screen Urine Negative (Negative)
[2019-12-02 16:55] LABS: Glucose Urine UA Norm (Normal); Protein Urine Neg (Negative); Specific Gravity, Urine 1.005 (1.005-1.030); Urine Appearance Clear (CLEAR); Urine Color Yellow (Yellow); pH Urine 6 (5-7)
[2019-12-02 16:56] LABS: Bilirubin Urine Neg (NEGATIVE); Blood Urine Neg (Negative); Ketones Urine Negative (Negative); Leukocyte Esterase Urine Negative (Negative); Nitrate Urine Negative (Negative); Urobilinogen Urine Norm (Negative)
[2019-12-02] MEDS: sodium chloride 0.9% 500 ML 999 ML IV (17:07)
--- NOTE | 2019-12-02 19:18 | PM.HP ---
Providers/Chief Complaint Primary Care Provider: Federico Hinton MD Chief Complaint: HALLUCINATIONS History of Present Illness Neha Pruett is a 84 year old male who right carotid endarterectomy 3 weeks ago, malignant neoplasm of lateral wall of bladder currently in remission (follows up with Dr. Trevino), diabetic, hypertensive, COPD came in with chief complaint of lethargy, generalized weakness and confusion. Patient is stating that his PCP recommended evaluation in the ER because of his confusion. Patient is stating that he stopped driving about 2 to 3 months ago, at home he tries to help his out, is trying to cook for himself these days, his p.o. intake has been decreased because he is busy taking care of his , otherwise he is independent for daily activities, he is denying any dysuria, diarrhea, nausea, vomiting, chest pain, numbness or tingling of extremities. He has quit smoking long time ago, he does not drink alcohol. Extensive work-up was done in ER which was unremarkable, patient has YAMILET secondary to dehydration, by the time I evaluated him he was awake alert oriented x3, GCS 15, his baseline creatinine is 1.1, EKG shows sinus bradycardia and he is on metoprolol tartrate, his sinus bradycardia is not new, decision was made to admit him and observe for overnight monitor his heart rate get physical therapy in the morning Review of Systems Const: Denies: fever, chills or body aches Eyes: Denies: change in vision or blurry vision ENMT: Denies: throat pain or uvular edema Card: Reports: chest pain; Denies: palpitations, irregular heart rhythm, edema or swelling of feet/ankles Resp: Denies: shortness of breath, productive cough or non-productive cough GI: Denies: abdominal pain, nausea or vomiting : Denies: flank pain, difficulty urinating or urinary frequency Musc: Reports: back pain, muscle cramps, muscle weakness and decrease in muscle mass; Denies: extremity pain, joint pain or joint swelling Skin/Breast: Denies: rash or itching Neuro: Denies: headache, weakness in extremities, lack of coordination, dizziness, slurred speech or seizure-like activity Psych: Denies: anxiety, depression or sleeping less Endo: Denies: excessive urination Elliott/Lymph: Denies: easy bruising All/Imm: Denies: hives Medications/Allergies Home Medications Medication Instructions Recorded Confirmed Last Taken Type evolocumab [Repatha Pushtronex] See Rx Instructions .ROUTE .COMPLEX 12/02/19 12/02/19 Unknown History ezetimibe 10 mg PO DAILY 12/02/19 12/02/19 Unknown History indomethacin 50 mg PO TID 12/02/19 12/02/19 Unknown History lidocaine HCl See Rx Instructions .ROUTE .COMPLEX 12/02/19 12/02/19 Unknown History Allergies Allergy/AdvReac Type Severity Reaction Status Date / Time No Known Allergies Allergy Verified 11/15/19 12:43 PFSH Acute PFSH: Medical History Attention deficit disorder Carotid stenosis Cataract COPD (chronic obstructive pulmonary disease) CVA (cerebrovascular accident) cva 3 weeks ago Diabetes 1.5, managed as type 2 Gout Hypertension Malignant neoplasm of lateral wall of bladder Sleep apnea Surgical History H/O hemorrhoidectomy H/O vasectomy History of penile implant Requires deflation before catheter placement History of total right knee replacement Status post carotid surgery Family History Father , at age 59-pneumonia Arthritis Mother , at age 89 Dementia Social History Smoking and tobacco status: former smoker Alcohol intake: never Lives independently: No Household members: spouse Marital status: Current occupational status: retired History of recent travel: No Vitals/I&O/Wt Last Vital Signs Temp 97.7 F 12/02/19 14:12 Pulse 55 L 12/02/19 14:12 Resp 18 12/02/19 14:12 BP 135/70 12/02/19 14:12 Pulse Ox 97 12/02/19 14:26 Weight last 48 hrs Weight 89.358 kg Physical Exam Narrative: EXAM NARRATIVE: This is a very pleasant elderly male Awake alert oriented x3, GCS 15, no neurological deficit, EOMI, PERRLA Buccal mucosa does not show any signs of dehydration, Current telemetry monitoring showing heart rate 76, blood pressure 160/70, S1, S2 no signs of heart failure positive JVD Lungs are clear to auscultation Abdomen soft, nontender, nondistended, with obesity, bowel sounds present Appropriate mood and affect Skin does not show any sign ischemia gangrene ulcer Data : 12/02/19 15:53 12/02/19 15:55 A&P Assessment and plan (1) Weakness: Status: Acute Code(s): R53.1 - Weakness (2) YAMILET (acute kidney injury): Status: Acute Code(s): N17.9 - Acute kidney failure, unspecified Additional A&P Information YAMILET secondary to dehydration Dehydration secondary to poor p.o. intake Patient is stating that he only voided once today CT abdomen did not show any obstruction no signs of hydronephrosis Monitor urine output, continue IV fluid maintenance rate Generalized confusion, memory loss and weakness Recent TIA, right carotid endarterectomy, patient is not able to recall events from yesterday, he is very forgetful these days, he has seen Dr. Pettit in the past as well, no diagnosis of Alzheimer's has been made, I believe his mild cognitive impairment is age-related No signs of infection We will monitor after hydrating him with IV fluids for now Physical therapy in the morning Recent right carotid endarterectomy No neurological deficit on physical exam Continue dual antiplatelet therapy along high-dose statins Bladder wall cancer in remission: Follows with Dr. Trevino, monitor urine output, hemoglobin 12, DVT prophylaxis: Heparin Cardiac diet Attestations Medical Necessity Statement*: Anticipating discharge in less than 48 hours needs IV fluids for resuscitation for dehydration Time Spent in Patient Care: 45 Coding Level of Care Code Acute Help Desk Supervisor for g Fwd Diagnoses Weakness R53.1 YAMILET (acute kidney injury) N17.9
--- NOTE | 2019-12-02 20:30 | PC.NURSE ---
RN reviewed and agrees with assessment.
[2019-12-02 22:19] LABS: Glucose Point of Care 204 mg/dL (70-110)
[2019-12-02] MEDS: heparin 5,000 unit/mL INJ 1 mL 5000 UNIT SUBCUT (22:29)
[2019-12-02] MEDS: tamsulosin 0.4 mg Capsule PO (22:30)
[2019-12-02] MEDS: sodium chloride 0.9% 1,000 ML 30 ML IV (22:33)
[2019-12-02 22:59] LABS: Thyroid Stimulating Hormone 3.26 uIU/mL (0.27-4.20)
[2019-12-03 04:06] VITALS: BP 153/67; PULSE 71; RESP 19; TEMP 36.4; O2SAT 96
[2019-12-03] MEDS: heparin 5,000 unit/mL INJ 1 mL 5000 UNIT SUBCUT ×3 (06:34→21:22)
[2019-12-03 06:49] LABS: Glucose Point of Care 119 mg/dL (70-110)
[2019-12-03 08:00] VITALS: BP 170/68; PULSE 88; RESP 18; TEMP 36.9; O2SAT 93
[2019-12-03] MEDS: clopidogrel 75 mg Tablet PO (08:25)
[2019-12-03] MEDS: allopurinol 300 mg Tablet PO (08:25)
[2019-12-03] MEDS: amlodipine 5 mg Tablet PO (08:25)
[2019-12-03] MEDS: atorvastatin 40 mg Tablet 80 MG PO (08:25)
[2019-12-03] MEDS: ezetimibe 10 mg Tablet PO (08:26)
[2019-12-03 10:36] LABS: Vitamin B12 337 pg/mL (232-1245)
--- NOTE | 2019-12-03 10:46 | PC.CHAP ---
Pastoral Care Encounter/Spiritual Assessment Type of Contact [] Declined dial printer visit [] Patient/Family/Request visit [] Outpatient visit [] Follow-up visit [] Physician referral [] Code/Alert [x] Routine visit [] Staff referral [] Actively dying [] Patient sleeping [] Family support [] [] Out of room [] Palliative care [] [] Receiving care in room [] Pre-surgical visit [] Trauma [] Long length of stay [] ICU visit [] Other: Relational/Emotional Strength [x] Patient feels connected with others/family/visitors/staff [] Distress [] Loneliness/isolation [] Abandonment Spirituality of Patient [x] Person of Tanya [x] Attends Pentecostalism of their Tanya [] Believes in Prayer [] Reads Bible or Jew materials [] There are Spiritual issues to be addressed Chemotherapist Interventions [x] Prayer [x] Active listening [] Non-anxious presence [] Spiritual/emotional support [] Crisis/trauma care [] Spiritual counseling [] Bereavement support [] Provided bereavement packet [] Provided Bible/devotional materials [] Provided toy/stuffed animal, coloring book to patient or family member [] Provided Communion [] Anointing/[place] [] Salvation [x] Completed spiritual assessment [] Other: Impact on Illness or Injury [] Angry [] Fearful [x] Anxious [] Often cries [] Exhaustion [] Unable to work [] Unable to attend yarsanism [] Unable to walk/stand [] Unable to read [] Unable to drive [] Unable to eat/drink [] Unable to sleep [] Unable to be with family [] Patient intubated [] Other: Summary patient wants to go home Time spent with patient 10 min 1 visitors
[2019-12-03 10:58] LABS: Glucose Point of Care 211 mg/dL (70-110)
[2019-12-03 11:13] VITALS: BP 145/75; PULSE 70; RESP 18; TEMP 36.4; O2SAT 98
--- NOTE | 2019-12-03 13:28 | P.PN_ITS ---
Subjective Subjective: Interval history: History and physical was reviewed. Patient denies any complaints. I discussed with his , and she reports he has had some sundowning behavior for at least the last several months. She notices that his underlying dementia seems to be worsening. He has not been eating and drinking quite as much. Medications: Reviewed: Yes Vitals/I&O/Wt Last Vital Signs Temp 97.6 F 12/03/19 11:13 Pulse 70 12/03/19 11:13 Resp 18 12/03/19 11:13 BP 145/75 12/03/19 11:13 Pulse Ox 98 12/03/19 11:13 12/02/19 12/03/19 12/03/19 22:59 06:59 14:59 Intake Total 840 / 840 Output Total 800 / 800 400 / 400 Balance -800 / -800 440 / 440 Weight last 48 hrs Weight 89.358 kg Physical Exam Narrative: EXAM NARRATIVE: General exam is a white male, in no apparent distress, moves fairly constantly Cardiovascular regular rate and rhythm without murmur Lungs clear no wheezing or crackles Abdomen is soft, positive bowel sounds Extremities no cyanosis clubbing or edema Neurologic: Short-term recall poor. Appears confused at times. Data : 12/02/19 15:53 12/02/19 15:55 A&P Assessment and plan (1) Weakness: May be related to underlying dementia, or renal failure. Overall he appears stronger today. Physical therapy has worked with him and he is able to ambulate. Status: Acute Code(s): R53.1 - Weakness (2) YAMILET (acute kidney injury): Not yet significantly improved Status: Acute Code(s): N17.9 - Acute kidney failure, unspecified Additional A&P Information YAMILET secondary to dehydration. Not yet improved. CT demonstrated no obstruction. Appears to be on indomethacin, ARB at home which could have contributed Underlying dementia. is enabling him to continue to live at home currently. He needs as many services as possible. Recent right carotid endarterectomy. Currently on dual antiplatelet therapy, statins Hypertension. Patient's metoprolol was held secondary to bradycardia. He seems to be tolerating this without difficulty. A low dose may need to be added back in the future. DVT prophylaxis with heparin Attestations Medical Necessity Statement*: Needs continued hospitalization for continued IV fluids, secondary to renal failure. Coding Level of Care Code Acute Door Puller for Chg Fwd Diagnoses Weakness R53.1 YAMILET (acute kidney injury) N17.9
[2019-12-03 15:39] VITALS: BP 161/62; PULSE 81; RESP 16; TEMP 36.5; O2SAT 97
[2019-12-03 17:06] LABS: Glucose Point of Care 197 mg/dL (70-110)
[2019-12-03 20:00] VITALS: BP 164/81; PULSE 78; RESP 18; TEMP 36.7; O2SAT 99
[2019-12-03] MEDS: tamsulosin 0.4 mg Capsule PO (21:20)
[2019-12-03 21:29] LABS: Glucose Point of Care 110 mg/dL (70-110)
[2019-12-03] MEDS: sodium chloride 0.9% 1,000 ML 100 ML IV (21:34)
[2019-12-04] VITALS (9 sets, daily range): BP systolic 133–164; BP diastolic 69–96; PULSE 80–97; RESP 16–18; TEMP 36.3–37.1; O2SAT 94–99
[2019-12-04 04:58] LABS: Basophils % 0.3 %; Eosinophils # 0.2 10^3/uL (0.0-0.8); Eosinophils % 3.2 %; Hematocrit 34.6 % (42.0-52.0); Hemoglobin 11.5 g/dL (11.7-16.6); Lymphocytes # 1.3 10^3/uL (0.8-4.8); Mean Corpuscular HGB Conc 33.2 g/dL (30.0-36.0); Mean Corpuscular Hemoglobin 30.3 pg (28.0-34.0); Mean Corpuscular Volume 91.1 fL (80-94); Mean Platelet Volume 10.5 fL (7.4-10.4); Monocytes # 0.6 10^3/uL (0.2-0.9); Monocytes % 9.1 %; Neutrophils # 4.8 10^3/uL (1.8-7.7); Neutrophils % 68.8 %; Nucleated Red Blood Cells % 0 %; Platelet Count 229 10^3/cmm (130-400); Red Cell Distribution Width 13.2 % (12.1-15.1); White Blood Count 6.9 10^3/uL (4.0-10.0)
[2019-12-04 05:22] LABS: Anion Gap 16.9 (5-19); Blood Urea Nitrogen 35 mg/dL (8-23); Calcium 9.2 mg/dL (8.5-10.5); Carbon Dioxide 21 mmol/L (22-29); Chloride 104 mmol/L (98-107); Glucose 125 mg/dL (65-115); Osmolality Calculated 285 mOsm/kg (285-295); Potassium 3.9 mmol/L (3.5-5.1); Sodium 138 mmol/L (136-145)
[2019-12-04] MEDS: heparin 5,000 unit/mL INJ 1 mL 5000 UNIT SUBCUT ×3 (05:43→20:40)
[2019-12-04] MEDS: sodium chloride 0.9% 1,000 ML 100 ML IV ×2 (05:43→16:17)
[2019-12-04 06:46] LABS: Glucose Point of Care 121 mg/dL (70-110)
[2019-12-04] MEDS: amlodipine 5 mg Tablet PO (08:01)
[2019-12-04] MEDS: allopurinol 300 mg Tablet PO (08:01)
[2019-12-04] MEDS: ezetimibe 10 mg Tablet PO (08:01)
[2019-12-04] MEDS: clopidogrel 75 mg Tablet PO (08:01)
[2019-12-04] MEDS: atorvastatin 40 mg Tablet 80 MG PO (08:01)
[2019-12-04] MEDS: cefTRIAXone 1,000 MG in sodium chloride 0.9% (plus) 50 ML 100 MG IV (10:43)
[2019-12-04] MEDS: fluoxetine 20 mg Capsule PO (10:44)
[2019-12-04 11:16] LABS: Glucose Point of Care 197 mg/dL (70-110)
--- NOTE | 2019-12-04 12:15 | PM.PN ---
Subjective Subjective: Interval history: Patient's family is at bedside Patient's and family are concerned, as he has had episodes of confusion this morning, he did not recognize his this morning, although there was a guard guarding his bed. According to family members since his carotid endarterectomy a month ago, he has been having a slow and steady decline in his memory, she is more forgetful, sees things that are not there, he is eating less, has had a couple of near falls, no dysuria, no hematuria, no fevers, no sick contacts, no recent travel, no focal neurologic deficits, no facial droop, no paralysis, no chest pain patient has no complaints this morning, states that he is doing fine, but is withdrawn, when confronted about this, he does feel a bit down, Vitals/I&O/Wt Last Vital Signs Temp 98.2 F 12/04/19 11:20 Pulse 90 12/04/19 11:20 Resp 18 12/04/19 11:20 BP 133/69 12/04/19 11:20 Pulse Ox 96 12/04/19 11:20 12/03/19 12/04/19 12/04/19 22:59 06:59 14:59 Intake Total 776.5 / 2080.0 815 / 2895.0 Balance 776.5 / 1680.0 815 / 2495.0 Weight last 48 hrs Weight 89.358 kg Physical Exam Const: COMMON NORMALS: no apparent distress ORIENTATION/CONSCIOUSNESS: Yes awake, Yes oriented to person and Yes oriented to place; not oriented to time HENMT: COMMON NORMALS: normocephalic HEAD & SCALP: normocephalic Neck/C-Spine: COMMON NORMALS: no JVD Resp: COMMON NORMALS: normal respiratory effort, no retractions, no use of accessory muscles and clear to auscultation bilaterally AUSCULTATION: clear to auscultation bilaterally Cardio: COMMON NORMALS: no JVD, regular rate, regular rhythm, S1 normal heart sound and S2 normal heart sound RATE: regular rate RHYTHM: regular rhythm HEART SOUNDS: S1 normal and S2 normal GI: COMMON NORMALS: normal to inspection, nondistended, normoactive bowel sounds, soft to palpation, non-tender, no hepatosplenomegaly, no masses and no bruits PALPATION: Yes soft and Yes no hepatosplenomegaly Extremity: COMMON NORMALS: normal capillary refill, no clubbing, cyanosis or edema, no calf tenderness and no pedal edema Neuro: SENSORIUM/ORIENTATION: Yes oriented to person, Yes oriented to place and No oriented to time Psych: COMMON NORMALS: mental status grossly normal Data : 12/04/19 04:23 12/04/19 04:23 A&P Assessment and plan (1) Weakness: -Likely secondary to deconditioning after his surgery, some component of dementia, and acute kidney injury -Continue physical therapy Status: Acute Code(s): R53.1 - Weakness (2) YAMILET (acute kidney injury): -Creatinine improved to 1.7, continue IV hydration -Hold indomethacin, Rx Status: Acute Code(s): N17.9 - Acute kidney failure, unspecified (3) Dementia: -Patient has significant clinical signs of dementia -According to family members he has shown signs of dementia outside the hospital, likely the inpatient setting has worsened his symptoms -Including short-term memory loss, and decline of executive level of functioning -Certainly patient's recent carotid endarterectomy, and CVA have had a snowball effect -In addition he has been eating less, likely explaining his dehydration -I have only urged patient and family to reconsider decision to go home with home health care, custodial placement is a good idea in terms of physical therapy, conditioning, so that he can eventually go home, but has high risk of readmissions, falls -Would advise of things such as life alert, and close monitoring, no driving, no operating heavy machinery, no operating the gas Status: Acute Code(s): F03.90 - Unspecified dementia without behavioral disturbance Additional A&P Information Recent history of CVA and symptomatic right carotid on dual antiplatelet therapy Recent right carotid endarterectomy. Currently on dual antiplatelet therapy, statins Hypertension. Patient's metoprolol is held secondary to bradycardia. He seems to be tolerating this without difficulty. A low dose may need to be added back in the future. 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
--- NOTE | 2019-12-04 14:05 | PC.CHAP ---
Pastoral Care Encounter/Spiritual Assessment Type of Contact [] Declined preschool assistant visit [] Patient/Family/Request visit [] Outpatient visit [] Follow-up visit [] Physician referral [] Code/Alert [X] Routine visit [] Staff referral [] Actively dying [] Patient sleeping [] Family support [] [] Out of room [] Palliative care [] [] Receiving care in room [] Pre-surgical visit [] Trauma [] Long length of stay [] ICU visit [] Other: Relational/Emotional Strength [] Patient feels connected with others/family/visitors/staff [] Distress [] Loneliness/isolation [] Abandonment Spirituality of Patient [] Person of Tanya [] Attends Gnosticist of their Tanya [] Believes in Prayer [] Reads Bible or Denominational materials [] There are Spiritual issues to be addressed Clinical Quality Rn Interventions [] Prayer [] Active listening [] Non-anxious presence [] Spiritual/emotional support [] Crisis/trauma care [] Spiritual counseling [] Bereavement support [] Provided bereavement packet [] Provided Bible/devotional materials [] Provided toy/stuffed animal, coloring book to patient or family member [] Provided Communion [] Anointing/[place] [] Salvation [] Completed spiritual assessment [] Other: Impact on Illness or Injury [] Angry [] Fearful [] Anxious [] Often cries [] Exhaustion [] Unable to work [] Unable to attend baptist [] Unable to walk/stand [] Unable to read [] Unable to drive [] Unable to eat/drink [] Unable to sleep [] Unable to be with family [] Patient intubated [] Other: Summary NO NEEDS STATED Time spent with patient
[2019-12-04 17:03] LABS: Glucose Point of Care 162 mg/dL (70-110)
[2019-12-04] MEDS: tamsulosin 0.4 mg Capsule PO (20:40)
[2019-12-04 20:49] LABS: Glucose Point of Care 160 mg/dL (70-110)
[2019-12-05] VITALS: BP 155/55; PULSE 91; RESP 18; TEMP 36.9; O2SAT 97
[2019-12-05] MEDS: sodium chloride 0.9% 1,000 ML 100 ML IV ×2 (01:55→13:17)
[2019-12-05 04:00] VITALS: BP 156/79; PULSE 84; RESP 18; TEMP 36.9; O2SAT 95
[2019-12-05 05:19] LABS: Basophils % 0.3 %; Eosinophils # 0.3 10^3/uL (0.0-0.8); Eosinophils % 4.3 %; Hematocrit 33.9 % (42.0-52.0); Hemoglobin 11.2 g/dL (11.7-16.6); Lymphocytes # 1.1 10^3/uL (0.8-4.8); Lymphocytes % 16.7 %; Mean Corpuscular Hemoglobin 30.6 pg (28.0-34.0); Mean Corpuscular Volume 92.6 fL (80-94); Mean Platelet Volume 10.6 fL (7.4-10.4); Monocytes # 0.5 10^3/uL (0.2-0.9); Monocytes % 8.3 %; Neutrophils # 4.5 10^3/uL (1.8-7.7); Neutrophils % 70.1 %; Nucleated Red Blood Cells % 0 %; Platelet Count 219 10^3/cmm (130-400); Red Blood Count 3.66 10^6/uL (4.1-5.3); Red Cell Distribution Width 13.5 % (12.1-15.1); White Blood Count 6.5 10^3/uL (4.0-10.0)
[2019-12-05] MEDS: heparin 5,000 unit/mL INJ 1 mL 5000 UNIT SUBCUT ×2 (05:27→13:17)
[2019-12-05 05:36] LABS: Alanine Aminotransferase 10 U/L (0-41); Albumin Level 3.1 g/dL (3.5-5.2); Alkaline Phosphatase 102 IU/L (40-130); Aspartate Amino Transferase 11 U/L (0-40); Blood Urea Nitrogen 24 mg/dL (8-23); Calcium 9.2 mg/dL (8.5-10.5); Carbon Dioxide 25 mmol/L (22-29); Chloride 110 mmol/L (98-107); Globulin 2.9 g/dL (1.3-4.6); Glucose 124 mg/dL (65-115); Osmolality Calculated 294 mOsm/kg (285-295); Phosphorus 3.4 mg/dL (2.5-4.5); Sodium 143 mmol/L (136-145); Total Bilirubin 0.7 mg/dL (0.15-1.2)
[2019-12-05 06:10] LABS: Glucose Point of Care 120 mg/dL (70-110)
[2019-12-05 07:15] VITALS: BP 176/78; PULSE 64; RESP 18; TEMP 36.8; O2SAT 96
[2019-12-05] MEDS: amlodipine 5 mg Tablet PO (08:57)
[2019-12-05] MEDS: atorvastatin 40 mg Tablet 80 MG PO (08:57)
[2019-12-05] MEDS: fluoxetine 20 mg Capsule PO (08:57)
[2019-12-05] MEDS: clopidogrel 75 mg Tablet PO (08:57)
[2019-12-05] MEDS: ezetimibe 10 mg Tablet PO (08:58)
[2019-12-05] MEDS: allopurinol 300 mg Tablet PO (08:58)
[2019-12-05] MEDS: cefTRIAXone 1,000 MG in sodium chloride 0.9% (plus) 50 ML 100 MG IV (09:27)
[2019-12-05] MEDS: cloNIDine 0.1 mg Tablet PO (10:51)
[2019-12-05 11:00] VITALS: BP 160/75; PULSE 74; RESP 18; TEMP 36.7; O2SAT 97
[2019-12-05 11:48] LABS: Glucose Point of Care 214 mg/dL (70-110)
[2019-12-05 14:57] VITALS: BP 160/75; PULSE 74; RESP 18; TEMP 36.7; O2SAT 97
--- NOTE | 2019-12-05 17:30 | P.DS_ITS ---
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 Patient received IV hydration, his creatinine improved, all his nephrotoxic medications were held, patient was discharged home with instructions to drink plenty of electrolyte balance fluids, follow-up with his primary care provider in 1 week, with consideration of reinstitution of his nephrotoxic medications . For patient's acute delirium with underlying dementia, likely multifactorial, second to dehydration, acute kidney injury, his recent hospitalization for right carotid endarterectomy, deconditioning. Patient's delirium resolved within 24 hours of discharge, he was started on Rocephin for possible UTI, although urine analysis and urine cultures have been unremarkable, was discharged on Bactrim. After a lengthy discussion with patient and family, I feel that patient has underlying dementia, he shows signs of loss of executive level of functioning, could not carry out complex tasks, also had short-term memory loss, would see things that are not there, had poor appetite. I highly recommended patient's family to consider short-term rehab as I felt that patient did not fully recover after his right carotid endarterectomy, and it has been a slow decline since then. However patient's family due to Covid 19 visitor restrictions to the [place] [facility], patient's family elected to take patient home, with his [facility] nursing help he already is receives at home. Patient was advised to ambulate with care, careful gait transfers, patient should not drive, patient should not be left alone, if he were to l fall come back to the emergency room, patient's family was advised to follow with primary care provider for consideration for medications for dementia, further work-up for dementia, life alert. For his blood pressure, I have discharged him with amlodipine 10 mg once daily, clonidine 0.1 mg twice daily, I held his metoprolol due to bradycardia, I have reinstituted his losartan. Physical Exam Const: COMMON NORMALS: no apparent distress and oriented x3 HENMT: COMMON NORMALS: normocephalic HEAD & SCALP: normocephalic Neck/C-Spine: COMMON NORMALS: no JVD Resp: COMMON NORMALS: normal respiratory effort, no retractions, no use of accessory muscles and clear to auscultation bilaterally AUSCULTATION: clear to auscultation bilaterally Cardio: COMMON NORMALS: no JVD, regular rate, regular rhythm, S1 normal heart sound and S2 normal heart sound RATE: regular rate RHYTHM: regular rhythm HEART SOUNDS: S1 normal and S2 normal GI: COMMON NORMALS: normal to inspection, nondistended, normoactive bowel sounds, soft to palpation, non-tender, no hepatosplenomegaly, no masses and no bruits PALPATION: Yes soft and Yes no hepatosplenomegaly Extremity: COMMON NORMALS: normal capillary refill, no clubbing, cyanosis or edema, no calf tenderness and no pedal edema Neuro: COMMON NORMALS: oriented x3 Psych: COMMON NORMALS: mental status grossly normal Discharge Data Data Completed and Pending: Completed Studies During Hospitalization Category Date Time Status CT abdomen pelvis wo con [id number] Stat Cat Scan 12/02/19 16:[address] head wo con* 7 [id number] Stat Cat Scan 12/02/19 14:37 Completed XR chest 1V lawanda ble [id number] Stat Exams 12/02/19 14:37 Completed Labs from last 24 hours 12/05/19 12/05/19 12/05/19 11:01 06:06 04:31 WBC RBC Hgb Hct MCV MCH MCHC RDW Plt Count MPV Neut % (Auto) Lymph % (Auto) [place] % (Auto) Eos % (Auto) Baso % (Auto) Neut # (Auto) Lymph # (Auto) [place] # (Auto) Eos # (Auto) Baso # (Auto) Nucleated RBC % (a uto) Nucleated RBCs # Sodium 143 Potassium 4.0 Chloride 110 H Carbon Dioxide 25 Anion Gap 12.0 BUN 24 H Creatinine 1.4 H Glucose 124 H POC Glucose 214 120 Calculated Osmolal ity 294 Calcium 9.2 Phosphorus 3.4 Magnesium 2.0 Total Bilirubin 0.7 AST 11 ALT 10 Alkaline Phosphata se 102 Total Protein 6.0 L Albumin 3.1 L Globulin 2.9 12/05/19 12/04/19 04:31 20:39 WBC 6.5 RBC 3.66 L Hgb 11.2 L Hct 33.9 L MCV 92.6 MCH 30.6 MCHC 33.0 RDW 13.5 Plt Count 219 MPV 10.6 H Neut % (Auto) 70.1 Lymph % (Auto) 16.7 [place] % (Auto) 8.3 Eos % (Auto) 4.3 Baso % (Auto) 0.3 Neut # (Auto) 4.5 Lymph # (Auto) 1.1 [place] # (Auto) 0.5 Eos # (Auto) 0.3 Baso # (Auto) 0.0 Nucleated RBC % (a uto) 0 Nucleated RBCs # 0.0 Sodium Potassium Chloride Carbon Dioxide Anion Gap BUN Creatinine Glucose POC Glucose 160 Calculated Osmolal ity Calcium Phosphorus Magnesium Total Bilirubin AST ALT Alkaline Phosphata se Total Protein Albumin Globulin Vitals: Last Vital Signs Temp 98.0 F 12/05/19 14:57 Pulse 74 12/05/19 14:57 Resp 18 12/05/19 14:57 BP 160/75 12/05/19 14:57 Pulse Ox 97 12/05/19 14:57 Discharge Plan Discharge Patient Disposition: Home, Self-Care Condition: Stable Prescriptions: New clonidine HCl 0.1 mg Tablet 0.1 mg PO BID 30 Days Qty: 60 RF: 0 amlodipine 10 mg Tablet 10 mg PO DAILY 30 Days Qty: 30 RF: 0 fluoxetine 20 mg Capsule 20 mg PO DAILY 30 Days Qty: 30 RF: 0 Bactrim DS 800-160 mg tablet 1 tab PO BID 5 Days Qty: 10 RF: 0 Continued clopidogrel 75 mg tablet 75 mg PO DAILY RF: 0 losartan 25 mg tablet 25 mg PO BID RF: 0 allopurinol 300 mg tablet 300 mg PO DAILY RF: 0 atorvastatin 40 mg tablet 80 mg PO DAILY RF: 0 glipizide 2.5 mg tablet extended release 24hr 2.5 mg PO DAILY RF: 0 Januvia 100 mg tablet 100 mg PO DAILY RF: 0 tamsulosin 0.4 mg capsule 0.4 mg PO BEDTIME RF: 0 ezetimibe 10 mg Tablet 10 mg PO DAILY RF: 0 lidocaine HCl 4 % Solution See Rx Instructions .ROUTE .COMPLEX RF: 0 Repatha Pushtronex 420 mg/3.5 mL Wearable Injector See Rx Instructions .ROUTE .COMPLEX RF: 0 Held methylphenidate HCl 20 mg cap,ER sprinkle,biphasic 40-60 20 mg PO DAILY RF: 0 Hold Instructions: Resume on 12/21/19. Hold until seen by primary care metoprolol tartrate 50 mg tablet 50 mg PO BID RF: 0 Hold Instructions: Resume on 12/21/19. Hold until seen by primary care Discontinued amlodipine 5 mg tablet 5 mg PO DAILY RF: 0 indomethacin 50 mg Capsule 50 mg PO TID RF: 0 Discharge Orders: Discharge Order (Routine); Ordered 12/05/19 Ordered By: Larry Jordan Other Ambulatory Orders: Comprehensive Metabolic Panel (Routine) Timeframe: 1 Week Facility: [facility] - Location: Lab - Main Lab Ordered By: Larry Jordan Referrals: [facility] [place] [Outside] (Call [facility] as needed for all your homecare supply needs.) [facility] [Outside] (Call Friday and make an appointment for 1-3 days for someone to come to your home for a referal to see what your homecare needs are.) Federico Hinton MD [Primary Care Provider] - (Please contact Dr. Hinton office on Friday to schedule an appointment to be seen within 4-7 days. ) Discharge Diet: Cardiac Discharge Activity: Resume usual activity Patient Instructions: Sulfamethoxazole/Trimethoprim (By mouth), Clonidine (By mouth), Fluoxetine (By mouth), Amlodipine (By mouth), Dehydration (DC), Dementia (GEN) Activity Restrictions/Additional Instructions: -Drink plenty of electrolyte balance fluids -Follow-up with primary care this week to recheck blood work and check blood pressure -Please ambulate with care, transfer gait with care Discharge Date/Time: 12/05/19 15:23 Discharge Attestations Time Spent in Discharge Care*: less than 30 min Quality Metrics Clinical Quality Measures During this hospital stay, did patient experience: None Coding Level of Care Code Acute Load Builder for [facility] Fwd Diagnoses Weakness R53.1 YAMILET (acute kidney injury) N17.9 Dementia F03.90
== END 2019-12-05 15:23 | disposition home or self-care (01) | DRG 683 ==
LOC: ER 19:34 → MEDSURG 19:52
PROVIDERS: Family Medicine; Internal Medicine; Admitting Provider Internal Medicine; Emergency Provider Emergency Medicine; Family Provider Family Medicine; PCP Family Medicine; Visit Provider Family Medicine
DX: N17.9 Acute kidney failure, unspecified (principal); N39.0 Urinary tract infection, site not specified; E86.0 Dehydration; F03.90 Unspecified dementia, unspecified severity, without behavioral disturbance, psychotic disturbance, mood disturbance, and anxiety; I10 Essential (primary) hypertension; Z87.891 Personal history of nicotine dependence; Z79.83 Long term (current) use of bisphosphonates; Z79.84 Long term (current) use of oral hypoglycemic drugs
CPT/HCPCS: 12345; 36415; 36416; 36600; 51798; 70450; 71045; 74176; 80048; 80051; 80053; 80307; 81003; 82009; 82550; 82607; 82810; 82962; 83605; 83690; 83735; 83986; 84100; 84443; 85025; 87804; 93005; 96372; 97116; 97161; 97530; 99284; G0378; J0696; J1644; J1815; J7030; J7040

== ENCOUNTER 2019-12-22 13:58 | Outpatient (CLI) | payer MEDICARE, OTHER, SELFPAY ==
--- NOTE | 2019-12-22 15:45 | USCV_ITS ---
Flynn Neha Age: 84 Gender: M : 1935 Exam Date: 12/22/2019 14:16 Ordering Phys: Moi Carmona MD (Andy) [facility] [place] Technologist: Rosario Chapa Exam Location: [facility] [place] Indication: CAROTID STENOSIS Risk Factors: Previous Vascular Surgery: R CEA, L CEA Right Brachial BP: / Left Brachial BP: / Right Left Velocity (cm/s) Spectral Plaque Velocity (cm/s) Spectral Plaque Syst/Diast Broadening Syst/Diast Broadening 70.10/ 11.40 Prox CCA 86.30 / 13.70 91.10/ 10.60 Mid CCA 69.20 / 11.10 97.40/ 13.70 Distal CCA 135.60/ 20.90 60.50/ 8.40 Prox ICA 66.70 / 7.70 76.90/ 25.30 Mid ICA / 85.55/ 23.80 Distal ICA / 151.60 ECA 191.00 0.88 ICA/CCA 0.96 Not Vertebral Antegrade Visualized / cm/s 46.10/ 11.10 cm/s Tri Subclavian Tri 74.90 151.1 0 FINDINGS Worsening LEFT ICA. Spoke with nurse Mary from ICU (she took message for Dr. Carmona) and was told to release the patient to go home. CONCLUSIONS Prior Bilateral CEA Right ICA stenosis <50%. Left ICA stenosis 70-99%. Poorly visualized flow in the mid and distal ICA with occlusion/near occlusion. This is progressed from previous. Recommend CTA. Moderate atheromatous plaque left carotid bulb/ICA. Normal antegrade Doppler flow noted in the left vertebral artery. Ganga Bello MD (Electronically Signed) Final Date: 22 December 2019 15:43 S
== END 2019-12-22 13:59 | disposition home or self-care (01) ==
LOC: RAD 14:02 → RADWPI 14:05
PROVIDERS: Family Provider Family Medicine; PCP Family Medicine; Visit Provider Thoracic Surgery (Cardiothoracic Vascular Surgery)
DX: I65.23 Occlusion and stenosis of bilateral carotid arteries (principal)
CPT/HCPCS: 93880

== ENCOUNTER 2019-12-28 09:50 | Outpatient (CLI) | payer MEDICARE, OTHER, SELFPAY ==
--- NOTE | 2019-12-28 10:00 | CT_ITS ---
WS: [id number] CT ANGIOGRAM CAROTID ARTERIES HISTORY: F/U FROM CAROTID DUPLEX, prior bilateral carotid endarterectomies. TECHNIQUE: CT angiogram is performed of the carotid arteries. During arterial injection imaging is ob tained from the skull base to the aortic arch in 1.25 mm imaging. Coronal and sagittal reformats are submitted, MIP imaging also reviewed. Additional multiplanar reformats of the carotid arteries are miranda bmitted. NASCET criteria utilized. All CT scans at [facility] use at least one of these d ose optimization techniques: automated exposure control; mA and/or kV adjustment per patient size (in cludes targeted exams where dose is matched to clinical indication); or iterative reconstruction. CONTRAST: Visipaque 320; 95 mL IV. DLP: 1100.4 mGycm COMPARISON: CT angiogram 08/21/2019 and recent ultrasound 12/22/2019 Right carotid: Common carotid artery: Arises normally from the innominate. Scattered plaque and intimal thickening. Internal carotid artery: Focal stenosis involving the ICA at 2 cm distal to the origin. There is circ umferential intimal thickening. Distal to the stenosis caliber is more normal. Contrast opacification is limited due to the injection parameters. External carotid artery: Patent. Left carotid: Common carotid artery: Arises normally from the aortic arch. No significant stenosis. Internal carotid artery: Intimal thickening at the bifurcation with additional calcified plaque. No c ontrast is present in the LEFT ICA distal to the bifurcation. External carotid artery: Patent. Right vertebral artery: Patent with poor contrast opacification. Left vertebral artery: Unremarkable. Arises normally from the left subclavian artery. Subclavian arteries: No stenosis or abnormality identified. Upper thorax: Paraseptal emphysema. 1 normal thyroid. No soft tissue masses throughout the neck. Osseous structures: Advanced degenerative changes throughout the cervical spine. Skull base: Atherosclerotic plaque continues to the carotid cavernous sinuses and supraclinoid. Contr ast opacification is limited. CT/CT angio neck [id number] IMPRESSION: 1. Known, completely occluded LEFT ICA. 2. Focal stenosis 2 cm from the origin of the RIGHT ICA at 60%.
[2019-12-28] MEDS: iodixanol 320 mg/mL 100mL Btl IV (10:16)
== END 2019-12-28 09:51 | disposition home or self-care (01) ==
LOC: RADWPI 09:55
PROVIDERS: Family Provider Family Medicine; PCP Family Medicine; Visit Provider Thoracic Surgery (Cardiothoracic Vascular Surgery)
DX: R94.39 Abnormal result of other cardiovascular function study (principal); I65.23 Occlusion and stenosis of bilateral carotid arteries
CPT/HCPCS: 70498; Q9967

== ENCOUNTER 2020-01-07 16:47 | Outpatient (CLI) | payer MEDICARE, OTHER, SELFPAY ==
[2020-01-07 18:06] LABS: Anion Gap 16.1 (5-19); Blood Urea Nitrogen 27 mg/dL (8-23); Calcium 9.6 mg/dL (8.5-10.5); Carbon Dioxide 27 mmol/L (22-29); Chloride 98 mmol/L (98-107); Glucose 82 mg/dL (65-115); Osmolality Calculated 280 mOsm/kg (285-295); Potassium 4.1 mmol/L (3.5-5.1); Sodium 137 mmol/L (136-145); Uric Acid 4.2 mg/dL (3.4-7.0)
== END 2020-01-07 16:48 | disposition home or self-care (01) ==
LOC: LAB 16:50
PROVIDERS: Family Provider Family Medicine; PCP Family Medicine; Visit Provider Family Medicine
DX: E11.9 Type 2 diabetes mellitus without complications (principal); M10.9 Gout, unspecified
CPT/HCPCS: 80048; 84550

== ENCOUNTER → 2020-01-26 13:48 | Outpatient (BNVA) | payer MEDICARE, OTHER, SELFPAY | PROVIDERS: Family Provider Family Medicine; PCP Family Medicine; Visit Provider Urology | DX: C67.2 Malignant neoplasm of lateral wall of bladder (principal); R33.8 Other retention of urine | CPT/HCPCS: 80053; 81001 ==

== ENCOUNTER → 2020-08-01 13:29 | Outpatient (BNVA) | payer MEDICARE, OTHER, SELFPAY | PROVIDERS: Family Provider Family Medicine; PCP Family Medicine; Visit Provider Urology | DX: C67.2 Malignant neoplasm of lateral wall of bladder (principal) | CPT/HCPCS: 80053; 81003; 87077; 87086; 87184; 88112 ==

== ENCOUNTER 2020-08-09 13:16 | Outpatient (CLI) | payer MEDICARE, OTHER, SELFPAY ==
--- NOTE | 2020-08-09 13:26 | USCV_ITS ---
Flynn Neha Age: 85 Gender: M : 1935 Exam Date: 08/09/2020 13:41 Ordering Phys: Moi Carmona MD (Andy) ([facility] [place]) Technologist: Capri Dowling [place] [facility] [place] Indication: 6 MTH F/U Risk Factors: Previous Vascular Surgery: R CEA KNOWN LEFT ICA OCCLUSION Right Brachial BP: / Left Brachial BP: / Right Left Velocity (cm/s) Spectral Plaque Velocity (cm/s) Spectral Plaque Syst/Diast Broadening Syst/Diast Broadening 77.80/ 12.70 Prox CCA 70.60 / 4.00 70.60/ 10.30 Mid CCA 69.80 / 7.90 69.80/ 15.10 Distal CCA 68.30 / 5.60 79.40/ 14.30 Prox ICA / 66.70/ 12.70 Mid ICA / 45.20/ 16.70 Distal ICA / 103.20 ECA 130.20 1.12 ICA/CCA Antegrade Vertebral 57.90/ 12.70 cm/s / cm/s Tri Subclavian Tri 56.50 120.1 0 FINDINGS Comparison:. 12/22/19. Now complete occlusion of the left ICA at the bifurcation, new since the US prior exam. Dense shadowing plaque in the left ICA. Mild plaque right ICA. Left vertebral artery not visualized. Right vertebral artery antegrade. CONCLUSIONS Complete occlusion of the left ICA. Complete occlusion has been described by CTA on 12/28/19. Right ICA stenosis < 50%. Dr. Marely Strickland DO (Electronically Signed) Final Date: 09 August 2020 14:27 S
== END 2020-08-09 13:17 | disposition home or self-care (01) ==
LOC: RAD 13:21
PROVIDERS: PCP Family Medicine; Visit Provider Thoracic Surgery (Cardiothoracic Vascular Surgery)
DX: I65.23 Occlusion and stenosis of bilateral carotid arteries (principal)
CPT/HCPCS: 93880

== ENCOUNTER 2020-09-12 07:05 | Outpatient (CLI) | payer MEDICARE, OTHER, SELFPAY ==
[2020-09-12 10:44] LABS: 25 Hydroxy Vitamin D 13 ng/mL (30-100); Albumin Level 3.8 g/dL (3.5-5.2); Anion Gap 12.2 (5-19); Blood Urea Nitrogen 31 mg/dL (8-23); Calcium 9.2 mg/dL (8.5-10.5); Carbon Dioxide 27 mmol/L (22-29); Chloride 103 mmol/L (98-107); Glucose 103 mg/dL (65-115); Phosphorus 3.4 mg/dL (2.5-4.5); Potassium 4.2 mmol/L (3.5-5.1); Sodium 138 mmol/L (136-145)
[2020-09-12 14:04] LABS: Parathyroid Hormone 127.7 pg/mL (15-65)
== END 2020-09-12 07:06 | disposition home or self-care (01) ==
LOC: LAB 13:31
PROVIDERS: PCP Family Medicine; Visit Provider Internal Medicine Nephrology
DX: N18.30 Chronic kidney disease, stage 3 unspecified (principal)
CPT/HCPCS: 80069; 82306; 82310; 83970

== ENCOUNTER 2020-09-15 10:28 | Outpatient (CLI) | payer MEDICARE, OTHER, SELFPAY ==
[2020-09-15 10:59] LABS: Add Urine Microscopic? YES; Bilirubin Urine Neg (Negative); Blood Urine 2+ (Negative); Glucose Urine UA Norm (Normal); Ketones Urine Negative (Negative); Leukocyte Esterase Urine 1+ (Negative); Nitrate Urine Negative (Negative); Protein Urine 1+ (Negative); Specific Gravity, Urine 1.015 (1.005-1.030); Urine Appearance Clear (CLEAR); Urine Color Yellow (Yellow); Urobilinogen Urine Neg (Negative); pH Urine 5 (5-7)
[2020-09-15 11:34] LABS: Add Urine Culture? No; Bacteria Urine 2+ /hpf; Mucus Urine 1+ /hpf; RBC Urine 15-25 /hpf (0-2); Squamous Epithelial Cell Urine 0-4 /hpf (0-5); WBC Urine 55-80 /hpf (0-5)
== END 2020-09-15 10:29 | disposition home or self-care (01) ==
LOC: LAB 10:30
PROVIDERS: PCP Family Medicine; Visit Provider Family Medicine
DX: N39.0 Urinary tract infection, site not specified (principal)
CPT/HCPCS: 81001; 87077; 87086; 87186

== ENCOUNTER 2020-10-16 13:00 | Outpatient (CLI) | payer MEDICARE, OTHER, SELFPAY ==
[2020-10-16 15:35] LABS: Creatinine Urine, Random 135 mg/dL (39-259)
[2020-10-16 16:03] LABS: Microalbum Creatinine Ratio Ur 311 mg/dL (0-20); Microalbumin Random Urine 42 ug/dL (0-20)
== END 2020-10-16 13:01 | disposition home or self-care (01) ==
PROVIDERS: PCP Family Medicine; Visit Provider Internal Medicine Nephrology
DX: N39.0 Urinary tract infection, site not specified (principal); I10 Essential (primary) hypertension
CPT/HCPCS: 36415; 82044

== ENCOUNTER 2020-10-24 07:05 | Outpatient (CLI) | payer MEDICARE, OTHER, SELFPAY ==
[2020-10-24 10:55] LABS: Calcium 8.8 mg/dL (8.5-10.5); Parathyroid Hormone 119.1 pg/mL (15-65)
[2020-10-24 10:57] LABS: 25 Hydroxy Vitamin D 24 ng/mL (30-100); Albumin Level 3.6 g/dL (3.5-5.2); Anion Gap 12.1 (5-19); Blood Urea Nitrogen 33 mg/dL (8-23); Carbon Dioxide 28 mmol/L (22-29); Chloride 105 mmol/L (98-107); Glucose 104 mg/dL (65-115); Phosphorus 3.9 mg/dL (2.5-4.5); Potassium 4.1 mmol/L (3.5-5.1); Sodium 141 mmol/L (136-145)
== END 2020-10-24 07:06 | disposition home or self-care (01) ==
PROVIDERS: PCP Family Medicine; Visit Provider Internal Medicine Nephrology
DX: N18.4 Chronic kidney disease, stage 4 (severe) (principal)
CPT/HCPCS: 80069; 82306; 82310; 83970

== ENCOUNTER 2020-11-07 07:40 | Outpatient (CLI) | payer MEDICARE, OTHER, SELFPAY ==
[2020-11-07 13:26] LABS: Anion Gap 11.7 (5-19); Blood Urea Nitrogen 37 mg/dL (8-23); Carbon Dioxide 26 mmol/L (22-29); Chloride 103 mmol/L (98-107); Glucose 119 mg/dL (65-115); Osmolality Calculated 292 mOsm/kg (285-295); Potassium 4.7 mmol/L (3.5-5.1); Sodium 136 mmol/L (136-145)
== END 2020-11-07 07:41 | disposition home or self-care (01) ==
LOC: LAB 11-09 06:09
PROVIDERS: PCP Family Medicine; Visit Provider Internal Medicine Nephrology
DX: N18.9 Chronic kidney disease, unspecified (principal)
CPT/HCPCS: 80048; 81001; 87086

== ENCOUNTER 2020-11-29 17:19 | Emergency (ER) | payer MEDICARE, OTHER, SELFPAY ==
[2020-11-29 17:21] VITALS: BP 161/79; PULSE 49; RESP 16; TEMP 36.9; O2SAT 100; BMI 26.5
--- NOTE | 2020-11-29 17:21 | W.ED.ARRPALP ---
HPI - Arrhythmia/Palpitations General: Chief Complaint: Arrhythmia/Palpitations Stated Complaint: HEADACHE LOW HEARTRATE Time Seen by Provider: 11/29/20 17:20 Source: patient Mode of arrival: EMS Limitations: no limitations and other (Dementia) History of Present Illness: HPI narrative: 85-year-old male brought in by EMS with headache, complaints of low heart rate, generalized malaise over the past 2 to 3 days. He has had chills, but no fever. No nausea vomiting or diarrhea. Denies any abdominal pain. No recent medication changes. He reports dizziness and fatigue on standing. No episodes of syncope. No melena. Denies alcohol or drug use. History of CVA and carotid stenosis, takes Plavix. Onset (ago): day(s) Duration: constant Associated symptoms: Deny diaphoresis, nausea or vomiting Review of Systems General: Reports: 10 or more systems reviewed and unremarkable except in HPI and below Const: Reports: body aches, change in appetite, fatigue and malaise; Denies: chills or diaphoresis Eyes: Reports: change in vision, blurry vision and other (Has macular degeneration) ENMT: Denies: odynophagia or hoarseness Card: Reports: palpitations, irregular heart rhythm and lightheadedness; Denies: chest pain or dyspnea on exertion Resp: Denies: dyspnea, productive cough or non-productive cough GI: Denies: nausea or vomiting : Denies: difficulty urinating, dysuria or urinary frequency Musc: Denies: neck pain, back pain or extremity pain Skin/Breast: Denies: rash, pruritus or erythema Neuro: Reports: headache(s); Denies: numbness in extremities or weakness in extremities Endo: Reports: tired all the time; Denies: polyuria or polydipsia Elliott/Lymph: Reports: easy bruising and easy bleeding PFSH ED PFSH: Medical History Attention deficit disorder Carotid stenosis Cataract COPD (chronic obstructive pulmonary disease) CVA (cerebrovascular accident) cva 3 weeks ago Diabetes 1.5, managed as type 2 Gout Hypertension Malignant neoplasm of lateral wall of bladder Sleep apnea Surgical History (Updated 08/24/20 @ 10:21 by Moi Carmona MD) H/O hemorrhoidectomy H/O vasectomy History of penile implant Requires deflation before catheter placement History of total right knee replacement Status post carotid surgery Family History Father , at age 59-pneumonia Arthritis Mother , at age 89 Dementia Social History Smoking and tobacco status: former smoker Alcohol intake: never Lives independently: No Household members: spouse Marital status: Current occupational status: retired History of recent travel: No Physical Exam Const: COMMON NORMALS: no acute distress, average body habitus and no limitations GENERAL APPEARANCE: ill appearing and frail appearing; not in distress, not anxious, not diaphoretic and no odor of alcohol detected HENMT: COMMON NORMALS: normocephalic and atraumatic HEAD & SCALP: normocephalic and atraumatic FACE & SINUS: normal facial exam and face symmetric Eye: COMMON NORMALS: Equal, round and reactive pupils present, EOMs intact bilaterally and conjunctivae normal CONJUNCTIVA: Yes conjunctivae normal PUPIL: Yes Equal, round and reactive pupils present Chest: COMMONS NORMALS: normal inspection of the chest Resp: COMMON NORMALS: normal respiratory effort; negative for clear to auscultation bilaterally EFFORT & INSPECTION: Yes able to speak in complete sentences, No abnormal respiratory pattern, No tachypneic, No respiratory distress and No decreased respiratory effort AUSCULTATION: not clear to auscultation bilaterally Cardio: COMMON NORMALS: regular rhythm, S1 normal heart sound present and S2 normal heart sound present JUGULAR VENOUS DISTENTION: no JVD RATE: bradycardic and tachycardic RHYTHM: regular rhythm HEART SOUNDS: S1 normal heart sound present and S2 normal heart sound present BRUITS: no abdominal aortic bruits GI: COMMON NORMALS: Soft to palpation, non-tender and No hepatosplenomegaly present INSPECTION: Yes normal to inspection PALPATION: Yes Soft to palpation and Yes No hepatosplenomegaly present Neuro: MOTOR EXAM: no tremor noted, Motor fasciculations not present, Normal motor muscle tone present throughout and Motor abnormalities not present Skin: COMMON NORMALS: no rashes or lesions noted and no wounds GENERAL SKIN EXAM: no rashes or lesions noted and turgor decreased Course Vital Signs: Vital signs: Vital Signs Temperature 98.4 F 11/29/20 17:21 Pulse Rate 69 11/29/20 22:34 Respiratory Rate 18 11/29/20 22:34 Blood Pressure 163/79 11/29/20 22:34 Pulse Oximetry 97 11/29/20 22:34 MDM - Arrhythmia/Palpitations MDM Narrative: Medical decision making narrative: 85-year-old male presenting with generalized malaise, fatigue, bradycardia, headache. Heart rate on arrival was in the 40s, regular. No ischemic changes on EKG. Previous records show baseline heart rate between 50 and 70. He is on metoprolol 75 mg twice daily. CBC normal, UA suggest acute urinary tract infection, started on Rocephin 1 g IV, fluid resuscitation. Elevated transaminases-ALT>AST. Medication list reviewed, will recommend holding off on statin until he follows up with his PCP. Chronic renal insufficiency; renal function similar to baseline. Serial troponins stable; 59, 54 Heart rate normalized in the 50-70 range. Blood pressure remained stable during this whole time. We will recommend that he follow-up closely with his PCP to recheck liver enzymes, assess medication doses. I will recommend that he decrease his metoprolol to 50 mg twice daily instead of 75. On reevaluation prior to discharge, the patient was awake, alert, appeared to be feeling much better and eager to go home. Medical Records: Attestation: I reviewed the patient's medical records. Lab Data: Attestation: I reviewed the patient's lab results. Labs: Lab Results 11/29/20 11/29/20 11/29/20 Range/Units 17:07 17:07 17:07 WBC 5.6 (4.0-10.0) 10^3/ uL RBC 4.42 (4.1-5.3) 10^6/u L Hgb 13.0 (11.7-16.6) g/dL Hct 38.9 L (42.0-52.0) % MCV 88.0 (80-94) fL MCH 29.4 (28.0-34.0) pg MCHC 33.4 (30.0-36.0) g/dL RDW 12.5 (12.1-15.1) % Plt Count 207 (130-400) 10^3/c mm MPV 9.9 (7.4-10.4) fL Neut % (Auto) 61.2 % Lymph % (Auto) 18.2 % [place] % (Auto) 10.2 % Eos % (Auto) 9.1 % Baso % (Auto) 1.1 % Neut # (Auto) 3.42 (1.8-7.7) 10^3/u L Lymph # (Auto) 1.0 (0.8-4.8) 10^3/u L [place] # (Auto) 0.6 (0.2-0.9) 10^3/u L Eos # (Auto) 0.5 (0.0-0.8) 10^3/u L Baso # (Auto) 0.1 (0.0-0.1) 10^3/u L Nucleated RBC % (a uto) 0 % Nucleated RBCs # 0.0 /100WBC Sodium 139 (136-145) mmol/L Potassium 4.2 (3.5-5.1) mmol/L Chloride 103 (98-107) mmol/L Carbon Dioxide 25 (22-29) mmol/L Anion Gap 15.2 (5-19) BUN 31 H (8-23) mg/dL Creatinine 1.8 H (0.7-1.2) mg/dL GFR Calculation Not Reportable Glucose 94 (65-115) mg/dL Calculated Osmolal ity 294 (285-295) mOsm/k g Calcium 8.9 (8.5-10.5) mg/dL Magnesium 2.1 (1.7-2.3) mg/dL Total Bilirubin 0.5 (0.15-1.2) mg/dL AST 68 H (0-40) U/L ALT 164 H (0-41) U/L Alkaline Phosphata se 172 H (40-130) IU/L Troponin T Gen 5 n g/L 59 H (0-15) ng/L Troponin T 120 Min [place] (0-15) ng/L Delta Troponin T Total Protein 7.1 (6.6-8.7) g/dL Albumin 3.7 (3.5-5.2) g/dL Globulin 3.4 (1.3-4.6) g/dL Urine Color (Yellow) Urine Appearance (CLEAR) Urine pH (5-7) Ur Specific Gravit y (1.005-1.030) Urine Protein (Negative) Urine Glucose (UA) (Normal) Urine Ketones (Negative) Urine Blood (Negative) Urine Nitrate (Negative) Urine Bilirubin (Negative) Urine Urobilinogen (Negative) mg/dL Ur Leukocyte Darling ase (Negative) Urine RBC (0-2) /hpf Urine WBC (0-5) /hpf Ur Squamous Epith Cells (0-5) /hpf Amorphous Sediment Urine Bacteria (NONE) /hpf 11/29/20 11/29/20 Range/Units 18:10 21:23 WBC (4.0-10.0) 10^3/ uL RBC (4.1-5.3) 10^6/u L Hgb (11.7-16.6) g/dL Hct (42.0-52.0) % MCV (80-94) fL MCH (28.0-34.0) pg MCHC (30.0-36.0) g/dL RDW (12.1-15.1) % Plt Count (130-400) 10^3/c mm MPV (7.4-10.4) fL Neut % (Auto) % Lymph % (Auto) % [place] % (Auto) % Eos % (Auto) % Baso % (Auto) % Neut # (Auto) (1.8-7.7) 10^3/u L Lymph # (Auto) (0.8-4.8) 10^3/u L [place] # (Auto) (0.2-0.9) 10^3/u L Eos # (Auto) (0.0-0.8) 10^3/u L Baso # (Auto) (0.0-0.1) 10^3/u L Nucleated RBC % (a uto) % Nucleated RBCs # /100WBC Sodium (136-145) mmol/L Potassium (3.5-5.1) mmol/L Chloride (98-107) mmol/L Carbon Dioxide (22-29) mmol/L Anion Gap (5-19) BUN (8-23) mg/dL Creatinine (0.7-1.2) mg/dL GFR Calculation Glucose (65-115) mg/dL Calculated Osmolal ity (285-295) mOsm/k g Calcium (8.5-10.5) mg/dL Magnesium (1.7-2.3) mg/dL Total Bilirubin (0.15-1.2) mg/dL AST (0-40) U/L ALT (0-41) U/L Alkaline Phosphata se (40-130) IU/L Troponin T Gen 5 n g/L (0-15) ng/L Troponin T 120 Min [place] 54.13 H (0-15) ng/L Delta Troponin T Not Reportable Total Protein (6.6-8.7) g/dL Albumin (3.5-5.2) g/dL Globulin (1.3-4.6) g/dL Urine Color Yellow (Yellow) Urine Appearance Cloudy (CLEAR) Urine pH 6 (5-7) Ur Specific Gravit y 1.010 (1.005-1.030) Urine Protein 1+ H (Negative) Urine Glucose (UA) Norm (Normal) Urine Ketones Negative (Negative) Urine Blood 2+ H (Negative) Urine Nitrate Negative (Negative) Urine Bilirubin Neg (Negative) Urine Urobilinogen Norm (Negative) mg/dL Ur Leukocyte Darling ase 1+ H (Negative) Urine RBC 5-10 H (0-2) /hpf Urine WBC 25-40 H (0-5) /hpf Ur Squamous Epith Cells 0-4 H (0-5) /hpf Amorphous Sediment Not Reportable Urine Bacteria 2+ H (NONE) /hpf Discharge Plan Discharge Patient Disposition: Home Clinical Impression: Acute UTI, Bradycardia, drug induced, Complaint of debility and malaise, Abnormal transaminases Condition: Stable Prescriptions: New Keflex 500 mg capsule 500 mg PO TID 7 Days Qty: 21 RF: 0 Held metoprolol tartrate 50 mg tablet 75 mg PO BID@0800,1600 RF: 0 Hold Instructions: decrease dose to 1 pill twice daily rosuvastatin 40 mg tablet 40 mg PO BEDTIME@1999 RF: 0 Hold Instructions: until you followup with your PCP No Action clopidogrel 75 mg tablet 75 mg PO DAILY@0800 RF: 0 methylphenidate HCl 20 mg cap,ER sprinkle,biphasic 40-60 20 mg PO DAILY@0800 RF: 0 Hold Instructions: Resume on 12/21/19. Hold until seen by primary care glipizide 2.5 mg tablet extended release 24hr 2.5 mg PO DAILY@0800 RF: 0 clonidine HCl 0.1 mg tablet 0.05 mg PO BID@,20 RF: 0 amlodipine 10 mg tablet 10 mg PO DAILY@0800 RF: 0 fluoxetine 20 mg capsule 20 mg PO DAILY@0800 RF: 0 artifi.tears(hypromellose)(PF) 0.3 % drops 1 drp ophthalmic (eye) DAILY@1999 PRN (Reason: UNKNOWN) RF: 0 meclizine 25 mg tablet 25 mg PO QID PRN (Reason: Vertigo) RF: 0 PreserVision AREDS 14,[id number] yeqi-gd-ctmi capsule 1 cap PO BID@0800,1600 RF: 0 Systane (propylene glycol) 0.4-0.3 % drops 1 drp ophthalmic (eye) DAILY@1999 PRN (Reason: UNKNOWN) RF: 0 travoprost [Travatan Z] 0.004 % drops 1 drp ophthalmic (eye) DAILY@1999 RF: 0 ezetimibe 10 mg Tablet 10 mg PO DAILY@0800 RF: 0 cetirizine 10 mg Tablet 10 mg PO DAILY@0800 RF: 0 Anti-Itch (HC) 1 % Lotion 1 applic TOPICAL BID@0800,1999 RF: 0 losartan 25 mg tablet 25 mg PO DAILY@0800 RF: 0 tamsulosin 0.4 mg capsule 0.4 mg PO BEDTIME@1999 RF: 0 Discharge Orders: Discharge ED (Routine); Ordered 11/29/20 Ordered By: Chuyita Zamarripa Referrals: Federico Hinton MD [Primary Care Provider] - Discharge Diet: Advance as tolerated Discharge Activity: Increase activity as tolerated Patient Instructions: Urinary Tract Infection in Men (ED), Bradycardia (ED) Activity Restrictions/Additional Instructions: Schedule follow-up appoint with your primary care doctor in the next 3 to 4 days. Until then stop taking your rosuvastatin. Also decrease your metoprolol dose to 50 mg twice daily instead of 75. Drink plenty of fluids, rest, make sure to complete all of the antibiotics. Return immediately to the ER if you develop fever, abdominal pain, vomiting, worsening palpitations, or any other concerning symptoms. Coding Level of Care Code ED Director [place] for [facility]a Fwd Exam Comprehensive
[2020-11-29 17:26] VITALS: BP 158/70; PULSE 50; RESP 18; O2SAT 96
[2020-11-29 17:46] LABS: Basophils # 0.1 10^3/uL (0.0-0.1); Basophils % 1.1 %; Eosinophils # 0.5 10^3/uL (0.0-0.8); Eosinophils % 9.1 %; Hematocrit 38.9 % (42.0-52.0); Lymphocytes % 18.2 %; Mean Corpuscular HGB Conc 33.4 g/dL (30.0-36.0); Mean Corpuscular Hemoglobin 29.4 pg (28.0-34.0); Mean Platelet Volume 9.9 fL (7.4-10.4); Monocytes # 0.6 10^3/uL (0.2-0.9); Monocytes % 10.2 %; Neutrophils # 3.42 10^3/uL (1.8-7.7); Neutrophils % 61.2 %; Nucleated Red Blood Cells % 0 %; Platelet Count 207 10^3/cmm (130-400); Red Blood Count 4.42 10^6/uL (4.1-5.3); Red Cell Distribution Width 12.5 % (12.1-15.1); White Blood Count 5.6 10^3/uL (4.0-10.0)
--- NOTE | 2020-11-29 17:46 | ECG_ITS ---
[facility] Test Date: 2020-11-29 Pat Name: Neha Pruett Department: Room: Gender: Male Geriatrician: : 1935 Requested By: Chuyita Zamarripa Order Number: [id number] Leon MD: Precious Steel M.D. Measurements Intervals [place] Rate: 47 P: 20 NM: 127 QRS: 52 QRSD: 96 T: 63 QT: 448 QTc: 398 Interpretive Statements SINUS BRADYCARDIA Compared to ECG 12/02/2019 15:24:42 No significant changes Electronically Signed On 11-29-2020 18:40:58 GUN STOCK CHECKER by Precious Steel M.D. [id number] f
[2020-11-29] MEDS: sodium chloride 0.9% 500 ML IV (17:59)
--- NOTE | 2020-11-29 18:05 | PC.NURSE ---
Aracelis reddy in 1971, have had neck pain ever since Cant drive anymore
[2020-11-29 18:06] VITALS: BP 158/70; PULSE 50; RESP 17; O2SAT 100
[2020-11-29 18:10] LABS: Troponin T (5th) Once 59 ng/L (0-15)
[2020-11-29 18:11] LABS: Alanine Aminotransferase 164 U/L (0-41); Albumin Level 3.7 g/dL (3.5-5.2); Alkaline Phosphatase 172 IU/L (40-130); Anion Gap 15.2 (5-19); Aspartate Amino Transferase 68 U/L (0-40); Blood Urea Nitrogen 31 mg/dL (8-23); Calcium 8.9 mg/dL (8.5-10.5); Carbon Dioxide 25 mmol/L (22-29); Chloride 103 mmol/L (98-107); Globulin 3.4 g/dL (1.3-4.6); Glucose 94 mg/dL (65-115); Magnesium 2.1 mg/dL (1.7-2.3); Osmolality Calculated 294 mOsm/kg (285-295); Potassium 4.2 mmol/L (3.5-5.1); Sodium 139 mmol/L (136-145); Total Bilirubin 0.5 mg/dL (0.15-1.2); Total Protein 7.1 g/dL (6.6-8.7)
[2020-11-29 18:34] LABS: Urine Appearance Cloudy (CLEAR); Urine Color Yellow (Yellow)
[2020-11-29 18:35] LABS: Add Urine Microscopic? YES; Bilirubin Urine Neg (Negative); Blood Urine 2+ (Negative); Glucose Urine UA Norm (Normal); Ketones Urine Negative (Negative); Leukocyte Esterase Urine 1+ (Negative); Nitrate Urine Negative (Negative); Protein Urine 1+ (Negative); Urobilinogen Urine Norm (Negative); pH Urine 6 (5-7)
[2020-11-29 19:02] LABS: Add Urine Culture? Yes; Bacteria Urine 2+ /hpf; Squamous Epithelial Cell Urine 0-4 /hpf (0-5); WBC Urine 25-40 /hpf (0-5)
[2020-11-29] MEDS: cefTRIAXone 1,000 MG in sodium chloride 0.9% (plus) 50 ML 100 MG IV (20:00)
[2020-11-29 21:00] VITALS: BP 163/79; PULSE 69; RESP 18; O2SAT 97
--- NOTE | 2020-11-29 21:15 | ECG_ITS ---
[facility] Test Date: 2020-11-29 Pat Name: Neha Pruett Department: Room: Gender: Male Bowling Ball Patcher: : 1935 Requested By: Chuyita Zamarripa Order Number: [id number] Leon MD: Precious Steel M.D. Measurements Intervals [place] Rate: 52 P: 8 NE: 131 QRS: 32 QRSD: 95 T: 56 QT: 455 QTc: 424 Interpretive Statements SINUS BRADYCARDIA Compared to ECG 11/29/2020 17:26:53 No significant changes Electronically Signed On 11-30-2020 9:36:05 BEAUTY CONSULTANT by Precious Steel M.D. [id number]
[2020-11-29 22:04] LABS: Troponin 5 2HR 54.13 ng/L (0-15)
[2020-11-29 22:34] VITALS: BP 163/79; PULSE 69; RESP 18; O2SAT 97
== END 2020-11-29 22:35 | disposition home or self-care (01) ==
PROVIDERS: Emergency Provider Family Medicine; PCP Family Medicine
DX: N39.0 Urinary tract infection, site not specified (principal); R00.1 Bradycardia, unspecified; T50.905A Adverse effect of unspecified drugs, medicaments and biological substances, initial encounter; R53.81 Other malaise; R74.01 Elevation of levels of liver transaminase levels; Z79.02 Long term (current) use of antithrombotics/antiplatelets; Z79.84 Long term (current) use of oral hypoglycemic drugs; J44.9 Chronic obstructive pulmonary disease, unspecified; Z86.73 Personal history of transient ischemic attack (TIA), and cerebral infarction without residual deficits; E13.9 Other specified diabetes mellitus without complications; I10 Essential (primary) hypertension; Z85.51 Personal history of malignant neoplasm of bladder; Z96.89 Presence of other specified functional implants; Z87.891 Personal history of nicotine dependence
CPT/HCPCS: 80053; 81001; 83735; 84484; 85025; 87077; 87086; 87186; 93005; 96365; 99284; J0696; J7040

== ENCOUNTER 2021-02-07 06:55 | Outpatient (CLI) | payer MEDICARE, OTHER, SELFPAY ==
[2021-02-06 18:25] LABS: Urine Appearance Clear (CLEAR); Urine Color Yellow (Yellow)
[2021-02-06 18:26] LABS: Add Urine Microscopic? YES; Bacteria Urine TRACE /hpf; Bilirubin Urine Neg (Negative); Blood Urine Trace (Negative); Glucose Urine UA Norm (Normal); Ketones Urine Negative (Negative); Leukocyte Esterase Urine Trace (Negative); Nitrate Urine Negative (Negative); Protein Urine Neg (Negative); RBC Urine 0-4 /hpf (0-2); Specific Gravity, Urine 1.005 (1.005-1.030); Squamous Epithelial Cell Urine 0-4 /hpf (0-5); Urobilinogen Urine Norm (Negative); pH Urine 6.5 (5-7)
== END 2021-02-07 06:56 | disposition home or self-care (01) ==
LOC: LAB 06:59
PROVIDERS: Internal Medicine Nephrology; PCP Family Medicine; Visit Provider Student in an Organized Health Care Education/Training Program
DX: N39.0 Urinary tract infection, site not specified (principal)
CPT/HCPCS: 81001; 87077; 87086; 87186

== ENCOUNTER 2021-02-10 16:44 | Emergency (ER) | payer MEDICARE, OTHER, SELFPAY ==
[2021-02-10 16:47] VITALS: BP 148/66; PULSE 55; RESP 16; TEMP 36.9; O2SAT 97; BMI 27.2
--- NOTE | 2021-02-10 17:04 | CTR_ITS ---
PROCEDURE INFORMATION: Exam: CT Head Without Contrast Exam date and time: 02/10/2021 5:53 PM Age: 85 years old Clinical indication: Altered mental status/memory loss; Confusion or disorientation; Patient HX: C/O AMS - states fell 3 days ago cannot remember details TECHNIQUE: Imaging protocol: Computed tomography of the head without contrast. Radiation optimization: All CT scans at this facility use at least one of these dose optimization techniques: automated exposure control; mA and/or kV adjustment per patient size (includes targeted exams where dose is matched to clinical indication); or iterative reconstruction. COMPARISON: CT head wo con* [id number] 12/02/2019 4:14 PM RADIATION DOSE METRICS: Total DLP (mGy-cm): 823.96 FINDINGS: Brain: No evidence of acute infarct. No mass or mass effect. No intra axial hemorrhage. No extra axial fluid collection or hemorrhage. Scattered white matter hypodensities likely from chronic microvascular ischemic disease. Global brain volume loss, likely age related. Cerebral ventricles: Symmetric and without enlargement. Bones/joints: No acute fracture. Paranasal sinuses: Visualized sinuses are well aerated. Mastoid air cells: Visualized mastoid air cells are well aerated. Soft tissues: No concerning abnormalities. CT/CT head wo con* [id number] IMPRESSION: No acute intracranial abnormality. Radiation Dose CTDIVOL = (mGy): DLP = 823.96 (mGy-cm)
--- NOTE | 2021-02-10 17:04 | XRR_ITS ---
PROCEDURE INFORMATION: Exam: XR Chest Exam date and time: 02/10/2021 5:07 PM Age: 85 years old Clinical indication: Other: AMS TECHNIQUE: Imaging protocol: XR of the chest. Views: 1 view. COMPARISON: CR XR chest 1V portable [id number] 12/02/2019 2:53 PM FINDINGS: Lungs: Small amount of scattered scarring likely COPD/emphysema. No focal consolidation. Mildly hyperinflated with Pleural spaces: Unremarkable. No pleural effusion. No pneumothorax. Heart/Mediastinum: The cardiac shadow is normal in size. Aortic calcifications noted. Diaphragm: Eventration of the right hemidiaphragm. Bones/joints: No acute abnormality. XR/XR chest 1V portable [id number] IMPRESSION: No acute findings.
--- NOTE | 2021-02-10 17:07 | ECG_ITS ---
[facility] Test Date: 2021-02-10 Pat Name: Neha Pruett Department: Room: Gender: Male Pre Billing Specialist: : 1935 Requested By: Abhi Gonzalez Order Number: [id number] Leon MD: Rod Hitchcock M.D. Measurements Intervals [place] Rate: 54 P: -6 GA: 135 QRS: 28 QRSD: 97 T: 65 QT: 457 QTc: 436 Interpretive Statements SINUS BRADYCARDIA Compared to ECG 11/29/2020 21:32:59 No significant changes Electronically Signed On 02-11-2021 15:34:59 CDT by Rod Hitchcock M.D. [id number]
[2021-02-10 17:11] VITALS: BP 136/62; PULSE 57; RESP 18; O2SAT 96
[2021-02-10 17:21] VITALS: PULSE 54
[2021-02-10 17:21] LABS: Basophils % 0.6 %; Eosinophils # 0.3 10^3/uL (0.0-0.8); Eosinophils % 6.1 %; Hematocrit 36.7 % (42.0-52.0); Lymphocytes % 19.2 %; Mean Corpuscular HGB Conc 32.7 g/dL (30.0-36.0); Mean Corpuscular Hemoglobin 28.9 pg (28.0-34.0); Mean Corpuscular Volume 88.4 fL (80-94); Mean Platelet Volume 9.7 fL (7.4-10.4); Monocytes # 0.8 10^3/uL (0.2-0.9); Monocytes % 15.2 %; Neutrophils # 3.08 10^3/uL (1.8-7.7); Neutrophils % 58.5 %; Nucleated Red Blood Cells % 0 %; Platelet Count 211 10^3/cmm (130-400); Red Blood Count 4.15 10^6/uL (4.1-5.3); Red Cell Distribution Width 13.4 % (12.1-15.1); White Blood Count 5.3 10^3/uL (4.0-10.0)
[2021-02-10 17:34] LABS: Troponin(5th) Baseline 52 ng/L (0-15)
[2021-02-10 17:40] LABS: Alanine Aminotransferase 10 U/L (0-41); Albumin Level 3.7 g/dL (3.5-5.2); Alkaline Phosphatase 108 IU/L (40-130); Anion Gap 14.3 (5-19); Aspartate Amino Transferase 9 U/L (0-40); Blood Urea Nitrogen 40 mg/dL (8-23); Calcium 8.3 mg/dL (8.5-10.5); Carbon Dioxide 26 mmol/L (22-29); Chloride 105 mmol/L (98-107); Creatine Phosphokinase 62 U/L (39-308); Globulin 2.3 g/dL (1.3-4.6); Glucose 95 mg/dL (65-115); NT Pro B Type Natriuretic Pept 830 pg/mL (0-450); Osmolality Calculated 302 mOsm/kg (285-295); Potassium 4.3 mmol/L (3.5-5.1); Sodium 141 mmol/L (136-145); Total Bilirubin 0.4 mg/dL (0.15-1.2)
[2021-02-10 17:54] LABS: Lactate (Lactic Acid level) 0.8 mmol/L (0.5-2.2)
[2021-02-10 17:59] LABS: Add Urine Microscopic? YES; Bilirubin Urine Neg (Negative); Blood Urine Neg (Negative); Glucose Urine UA Norm (Normal); Ketones Urine Negative (Negative); Leukocyte Esterase Urine Negative (Negative); Nitrate Urine Negative (Negative); Protein Urine 1+ (Negative); Urine Appearance Clear (CLEAR); Urine Color Yellow (Yellow); Urobilinogen Urine Norm (Negative); pH Urine 6 (5-7)
[2021-02-10 18:00] LABS: WBC Urine 0-4 /hpf (0-5)
[2021-02-10 18:01] LABS: Add Urine Culture? No; Bacteria Urine TRACE /hpf; Mucus Urine TRACE /hpf
[2021-02-10 18:17] VITALS: BP 158/71; PULSE 56; RESP 16; O2SAT 98
--- NOTE | 2021-02-10 18:37 | CTR_ITS ---
PROCEDURE INFORMATION: Exam: CT Abdomen And Pelvis Without Contrast Exam date and time: 02/10/2021 6:52 PM Age: 85 years old Clinical indication: Abdominal pain; Localized; Right lower quadrant (rlq); Prior surgery; Surgery date: 6+ months; Surgery type: Penile implant; Patient HX: Rlq point tenderness; Additional info: Abd pain TECHNIQUE: Imaging protocol: Computed tomography of the abdomen and pelvis without contrast. Radiation optimization: All CT scans at this facility use at least one of these dose optimization techniques: automated exposure control; mA and/or kV adjustment per patient size (includes targeted exams where dose is matched to clinical indication); or iterative reconstruction. COMPARISON: CT abdomen pelvis wo con [id number] 12/02/2019 5:38 PM RADIATION DOSE METRICS: Total DLP (mGy-cm): 1661.1 FINDINGS: Lungs: No acute findings in the lung bases. Liver: Normal size and density. No focal mass. Gallbladder and bile ducts: Tiny calcified gallstones. No signs of acute cholecystitis. Pancreas: No evidence of mass. No ductal dilation. Spleen: No splenomegaly or mass. Adrenal glands: Normal. Kidneys and ureters: Bilateral simple appearing renal cysts measure up to 7.4 cm on the left and 3.5 cm on the right. These do not require further imaging. No stones or hydronephrosis. Stomach and bowel: No evidence of obstruction. No focal bowel wall thickening or mass. No significant diverticula. Appendix: No evidence of appendicitis. Intraperitoneal space: No free air or fluid. No abscess. Vasculature: Multiple vascular calcifications. Lymph nodes: No lymphadenopathy. Urinary bladder: Normal CT appearance. Reproductive: Penile implant noted. The reservoir for the implant in the deep right pelvis is deflated with air in the reservoir and in the connecting tubing. Bones/joints: Moderate to severe degenerative changes of the spine. No acute osseous abnormality. Soft tissues: Small fat containing inguinal hernias, greater on the left. CT/CT abdomen pelvis wo con [id number] IMPRESSION: 1. Air within the penile implant reservoir and tubing suggesting a system fluid leak. 2. Tiny calcified gallstones without signs of cholecystitis. 3. Small fat containing inguinal hernias, greater on the left. COMMENTS: Consistent with the [employer]'s Incidental Findings Committee white paper (J Am Adeel Radiol 2018): Any incidental renal lesion less than 1 cm or classified as too small to characterize, or any incidental cystic renal lesion characterized as simple-appearing, is likely benign. No follow-up imaging is recommended for these lesions per consensus recommendations based on imaging criteria. Radiation Dose CTDIVOL = (mGy): DLP = 1661.1 (mGy-cm)
[2021-02-10] MEDS: sodium chloride 0.9% 1,000 ML 999 ML IV (19:00)
[2021-02-10 19:04] LABS: Troponin 5 2HR 40.46 ng/L (0-15)
--- NOTE | 2021-02-10 19:07 | ECG_ITS ---
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 Measurements Intervals [place] Rate: 55 P: -10 [place]: 118 QRS: 31 QRSD: 97 T: 69 QT: 456 QTc: 436 Interpretive Statements SINUS BRADYCARDIA WITH SHORT [place] INTERVAL Compared to ECG 02/10/2021 17:18:18 Short [place] interval now present Electronically Signed On 02-11-2021 15:37:01 CDT by Rod Hitchcock M.D. [email or web address] medical [email or web address] [email or web address] st[facility] [email or web address] boardman [email or web address]/store/[id number]
[2021-02-10 19:12] VITALS: BP 158/71; PULSE 61; RESP 20; O2SAT 98
[2021-02-10 19:12] LABS: Troponin 5 2HR Delta -11.54 ABS# (0-10)
--- NOTE | 2021-02-10 21:28 | W.ED.AMS ---
HPI - Altered Mental Status General: Chief Complaint: Altered Mental Status Stated Complaint: AMS Time Seen by Provider: 02/10/21 16:59 History of Present Illness: HPI narrative: The patient is an 85-year-old male with past medical history dementia who lives at [facility] who was sent here for altered mental status. He fell a few days ago and they are worried that that could be contributing to it. He is also being treated for urinary tract infection and started antibiotics only yesterday. On my interview he is talking to me and alert and oriented x4. He offers no complaints other than burning with urination and makes a joke about getting older. He says he was walking the hallway and they found him and thought he was confused and sent him to the ER for evaluation. His daughter arrived to says he has been mildly confused. No focal weakness. He is able to walk and move all extremities well. He has no blurry vision in the room with me. complaint: altered mental status Severity: mild Associated symptoms: Reports no associated symptoms; Deny depression Review of Systems General: Reports: 10 or more systems reviewed and unremarkable except in HPI and below Const: Denies: fatigue Eyes: Denies: change in vision, blurry vision or eye redness ENMT: Denies: throat pain, swelling of lips/tongue, ear or mastoid pain or nasal congestion Card: Denies: chest pain, palpitations, irregular heart rhythm, edema, dyspnea on exertion or orthopnea Resp: Denies: dyspnea, productive cough or non-productive cough GI: Denies: abdominal pain, diarrhea or GI cramping : Reports: dysuria and urinary frequency; Denies: flank pain or urinary urgency Musc: Denies: neck pain, back pain, extremity pain, joint pain, joint redness, limited range of motion or muscle weakness Skin/Breast: Denies: rash, pruritus, erythema, skin pain or skin tenderness Neuro: Denies: headache(s), numbness in extremities, weakness in extremities, sensory changes, difficulty walking, dizziness, confusion or Slurred speech present Psych: Denies: anxiety or depression Endo: Denies: polyuria All/Imm: Denies: urticaria, throat swelling or tongue swelling PFSH ED PFSH: Medical History Attention deficit disorder Carotid stenosis Cataract COPD (chronic obstructive pulmonary disease) CVA (cerebrovascular accident) cva 3 weeks ago Diabetes 1.5, managed as type 2 Gout Hypertension Malignant neoplasm of lateral wall of bladder Sleep apnea Surgical History (Updated 08/24/20 @ 10:21 by Moi Carmona MD) H/O hemorrhoidectomy H/O vasectomy History of penile implant Requires deflation before catheter placement History of total right knee replacement Status post carotid surgery Family History Father , at age 59-pneumonia Arthritis Mother , at age 89 Dementia Social History Smoking and tobacco status: former smoker Alcohol intake: never Lives independently: No Household members: spouse Marital status: Current occupational status: retired History of recent travel: No Physical Exam Const: COMMON NORMALS: no acute distress, average body habitus, patient oriented x3, no limitations, healthy appearing, alert and well nourished GENERAL APPEARANCE: cooperative, comfortable, well kempt and well developed ORIENTATION/CONSCIOUSNESS: Yes awake, Yes oriented to person, Yes oriented to place and Yes oriented to time HENMT: COMMON NORMALS: normocephalic, external ears normal and Normal external nose present HEAD & SCALP: normal to inspection and normocephalic NOSE: Normal external nose present EXTERNAL EAR: Yes external ears normal MOUTH: Normal oral and palatal mucosa present THROAT: posterior oropharynx normal Eye: COMMON NORMALS: Equal, round and reactive pupils present and EOMs intact bilaterally GENERAL EYE: appearance normal, both eyes and all related structures PUPIL: Yes Equal, round and reactive pupils present Neck/C-Spine: COMMON NORMALS: full ROM, no lymphadenopathy, no meningeal signs and no JVD GENERAL: Yes normal visual inspection Lymph: LYMPHATIC: no lymphadenopathy noted Chest: COMMONS NORMALS: normal inspection of the chest and normal palpation of entire chest wall Resp: COMMON NORMALS: normal respiratory effort, No retractions, No use of accessory muscles, clear to auscultation bilaterally and percussion normal EFFORT & INSPECTION: Yes able to speak in complete sentences AUSCULTATION: clear to auscultation bilaterally PERCUSSION: percussion normal Cardio: COMMON NORMALS: no JVD, regular rate, regular rhythm, S1 normal heart sound present, S2 normal heart sound present and Peripheral pulses 2+ throughout RATE: regular rate RHYTHM: regular rhythm HEART SOUNDS: S1 normal heart sound present and S2 normal heart sound present PERIPHERAL PULSES: Peripheral pulses 2+ throughout GI: COMMON NORMALS: Normal to inspection, nondistended, normoactive bowel sounds present, Soft to palpation, non-tender and no masses INSPECTION: Yes normal to inspection PALPATION: Yes Soft to palpation : COMMON NORMALS: Yes no CVA tenderness BLADDER/KIDNEY EXAM: Yes no CVA tenderness Back/Pelvis: COMMON NORMALS: no CVA tenderness, thoracic and lumbar spine normal to inspection, no thoracic nor lumbar tenderness and thoraco-lumbar ROM normal Extremity: COMMON NORMALS: normal to inspection, full ROM, capillary refill normal, no joint enlargement and no pedal edema GENERAL: Yes normal exam except as noted Neuro: COMMON NORMALS: patient oriented x3, CN's II-XII intact bilaterally, moves all extremities, no focal motor deficits, no sensory deficits noted and gait normal SENSORIUM/ORIENTATION: Yes alert, Yes oriented to person, Yes oriented to place and Yes oriented to time MENINGEAL SIGNS: Yes no meningeal signs Psych: COMMON NORMALS: mental status grossly normal, Normal thought process present, cooperative, normal affect and speech normal APPEARANCE: Yes well kempt ATTITUDE: Yes calm SPEECH: Yes normal speech THOUGHT PROCESS: Normal thought process present Skin: COMMON NORMALS: no rashes or lesions noted GENERAL SKIN EXAM: no rashes or lesions noted Course Vital Signs: Vital signs: Vital Signs Temperature 98.5 F 02/10/21 16:47 Pulse Rate 68 02/10/21 21:46 Respiratory Rate 16 02/10/21 21:46 Blood Pressure 169/83 02/10/21 21:46 Pulse Oximetry 97 02/10/21 21:46 MDM - Altered Mental Status MDM Narrative: Medical decision making narrative: The patient comes to the ER after reported altered mental status. On arrival he is not altered and is answering questions appropriately. His daughter arrived and noted that he has mildly confused. He does have chronic dementia. He was given a liter of fluids and she said that did help his confusion and again he offers no feelings of this. He has no focal deficits or signs of stroke in the ED today. CT head negative for acute changes but does show old ischemic changes. His creatinine is on par with his recent trend though his BUN is slightly elevated. A liter of fluids will likely help that. He is being treated for a urinary tract infection which can make him confused and he is only taken 1 or 2 doses of doxycycline which is likely not long enough. I recommended he increase his oral intake of fluids and continue the doxycycline. He has an appointment with primary care physician Friday which is an appropriate follow-up. ER with worsening symptoms at any time. Lab Data: Labs: Lab Results 02/10/21 02/10/21 02/10/21 Range/Units 16:30 16:30 16:30 WBC 5.3 (4.0-10.0) 10^3/ uL RBC 4.15 (4.1-5.3) 10^6/u L Hgb 12.0 (11.7-16.6) g/dL Hct 36.7 L (42.0-52.0) % MCV 88.4 (80-94) fL MCH 28.9 (28.0-34.0) pg MCHC 32.7 (30.0-36.0) g/dL RDW 13.4 (12.1-15.1) % Plt Count 211 (130-400) 10^3/c mm MPV 9.7 (7.4-10.4) fL Neut % (Auto) 58.5 % Lymph % (Auto) 19.2 % [place] % (Auto) 15.2 % Eos % (Auto) 6.1 % Baso % (Auto) 0.6 % Neut # (Auto) 3.08 (1.8-7.7) 10^3/u L Lymph # (Auto) 1.0 (0.8-4.8) 10^3/u L [place] # (Auto) 0.8 (0.2-0.9) 10^3/u L Eos # (Auto) 0.3 (0.0-0.8) 10^3/u L Baso # (Auto) 0.0 (0.0-0.1) 10^3/u L Nucleated RBC % (a uto) 0 % Nucleated RBCs # 0.0 /100WBC Sodium 141 (136-145) mmol/L Potassium 4.3 (3.5-5.1) mmol/L Chloride 105 (98-107) mmol/L Carbon Dioxide 26 (22-29) mmol/L Anion Gap 14.3 (5-19) BUN 40 H (8-23) mg/dL Creatinine 1.8 H (0.7-1.2) mg/dL GFR Calculation Not Reportable Glucose 95 (65-115) mg/dL Calculated Osmolal ity 302 H (285-295) mOsm/k g Lactate (0.5-2.2) mmol/L Calcium 8.3 L (8.5-10.5) mg/dL Total Bilirubin 0.4 (0.15-1.2) mg/dL AST 9 (0-40) U/L ALT 10 (0-41) U/L Alkaline Phosphata se 108 (40-130) IU/L Creatine Kinase 62 (39-308) U/L Troponin T Baselin e 52 H (0-15) ng/L Troponin T 120 Min q[place]ang[place] (0-15) ng/L Delta Troponin T (0-10) ABS# NT-Pro-B Natriuret Pep 830 H (0-450) pg/mL Total Protein 6.0 L (6.6-8.7) g/dL Albumin 3.7 (3.5-5.2) g/dL Globulin 2.3 (1.3-4.6) g/dL Urine Color (Yellow) Urine Appearance (CLEAR) Urine pH (5-7) Ur Specific Gravit y (1.005-1.030) Urine Protein (Negative) Urine Glucose (UA) (Normal) Urine Ketones (Negative) Urine Blood (Negative) Urine Nitrate (Negative) Urine Bilirubin (Negative) Urine Urobilinogen (Negative) mg/dL Ur Leukocyte Darling ase (Negative) Urine RBC (0-2) /hpf Urine WBC (0-5) /hpf Ur Squamous Epith Cells (0-5) /hpf Amorphous Sediment Urine Bacteria (NONE) /hpf Urine Mucus /hpf 02/10/21 02/10/21 02/10/21 Range/Units 17:15 17:30 18:30 WBC (4.0-10.0) 10^3/ uL RBC (4.1-5.3) 10^6/u L Hgb (11.7-16.6) g/dL Hct (42.0-52.0) % MCV (80-94) fL MCH (28.0-34.0) pg MCHC (30.0-36.0) g/dL RDW (12.1-15.1) % Plt Count (130-400) 10^3/c mm MPV (7.4-10.4) fL Neut % (Auto) % Lymph % (Auto) % [place] % (Auto) % Eos % (Auto) % Baso % (Auto) % Neut # (Auto) (1.8-7.7) 10^3/u L Lymph # (Auto) (0.8-4.8) 10^3/u L [place] # (Auto) (0.2-0.9) 10^3/u L Eos # (Auto) (0.0-0.8) 10^3/u L Baso # (Auto) (0.0-0.1) 10^3/u L Nucleated RBC % (a uto) % Nucleated RBCs # /100WBC Sodium (136-145) mmol/L Potassium (3.5-5.1) mmol/L Chloride (98-107) mmol/L Carbon Dioxide (22-29) mmol/L Anion Gap (5-19) BUN (8-23) mg/dL Creatinine (0.7-1.2) mg/dL GFR Calculation Glucose (65-115) mg/dL Calculated Osmolal ity (285-295) mOsm/k g Lactate 0.8 (0.5-2.2) mmol/L Calcium (8.5-10.5) mg/dL Total Bilirubin (0.15-1.2) mg/dL AST (0-40) U/L ALT (0-41) U/L Alkaline Phosphata se (40-130) IU/L Creatine Kinase (39-308) U/L Troponin T Baselin e (0-15) ng/L Troponin T 120 Min q[place] 40.46 H (0-15) ng/L Delta Troponin T -11.54 L (0-10) ABS# NT-Pro-B Natriuret Pep (0-450) pg/mL Total Protein (6.6-8.7) g/dL Albumin (3.5-5.2) g/dL Globulin (1.3-4.6) g/dL Urine Color Yellow (Yellow) Urine Appearance Clear (CLEAR) Urine pH 6 (5-7) Ur Specific Gravit y 1.010 (1.005-1.030) Urine Protein 1+ H (Negative) Urine Glucose (UA) Norm (Normal) Urine Ketones Negative (Negative) Urine Blood Neg (Negative) Urine Nitrate Negative (Negative) Urine Bilirubin Neg (Negative) Urine Urobilinogen Norm (Negative) mg/dL Ur Leukocyte Darling ase Negative (Negative) Urine RBC None (0-2) /hpf Urine WBC 0-4 H (0-5) /hpf Ur Squamous Epith Cells None (0-5) /hpf Amorphous Sediment Not Reportable Urine Bacteria Trace (NONE) /hpf Urine Mucus Trace /hpf Discharge Plan Discharge Patient Disposition: Home Clinical Impression: UTI (urinary tract infection), Acute kidney injury, Dehydration Condition: Stable Prescriptions: No Action clopidogrel 75 mg tablet 75 mg PO DAILY@0800 RF: 0 glipizide 2.5 mg tablet extended release 24hr 2.5 mg PO DAILY@0800 RF: 0 amlodipine 10 mg tablet 10 mg PO DAILY@0800 RF: 0 artifi.tears(hypromellose)(PF) 0.3 % drops 1 drp ophthalmic (eye) DAILY@1999 PRN (Reason: UNKNOWN) RF: 0 meclizine 25 mg tablet 25 mg PO QID PRN (Reason: Vertigo) RF: 0 metoprolol tartrate 50 mg tablet 50 mg PO BID@0800,1600 RF: 0 Hold Instructions: decrease dose to 1 pill twice daily PreserVision AREDS [id number] womn-tk-suaq capsule 1 cap PO BID@0800,1600 RF: 0 Systane (propylene glycol) 0.4-0.3 % drops 1 - 2 drp ophthalmic (eye) DAILY@1999 PRN (Reason: UNKNOWN) RF: 0 ezetimibe 10 mg Tablet 10 mg PO DAILY@0800 RF: 0 fluoxetine 40 mg Capsule 40 mg PO DAILY@0800 RF: 0 latanoprost 0.005 % Drops 1 drp OPHTHALMIC (EYE) DAILY@1600 RF: 0 doxycycline hyclate 100 mg Capsule 100 mg PO BID@0800,1999 RF: 0 methylphenidate HCl 10 mg tablet 20 mg PO DAILY@0800 RF: 0 acetaminophen 500 mg Tablet 500 mg PO Q6H PRN (Reason: Pain) RF: 0 triamcinolone acetonide 0.1 % ointment See Rx Instructions .ROUTE .COMPLEX RF: 0 ibuprofen 400 mg Tablet 400 mg PO Q6H PRN (Reason: PAIN/FEVER) RF: 0 aripiprazole 2 mg Tablet 2 mg PO DAILY@0800 RF: 0 Calmoseptine 0.44-20.6 % Ointment 1 applic TOPICAL QID RF: 0 Vitamin D Ointment See Rx Instructions .ROUTE .COMPLEX PRN (Reason: Itching) RF: 0 cetirizine 10 mg Tablet 10 mg PO DAILY@0800 RF: 0 hydrocortisone [Anti-Itch (HC)] 1 % Lotion 1 applic TOPICAL BID@0800,1600 RF: 0 losartan 25 mg tablet 25 mg PO DAILY@0800 RF: 0 tamsulosin 0.4 mg capsule 0.4 mg PO BEDTIME@2000 RF: 0 Discharge Orders: Discharge ED (Routine); Ordered 02/10/21 Ordered By: Abhi Gonzalez Referrals: Federico Hinton MD [Primary Care Provider] - Discharge Diet: Advance as tolerated Discharge Activity: Resume usual activity Patient Instructions: Dehydration (ED), Acute Kidney Injury (GEN), Urinary Tract Infection in Men (ED), Opioid Safety Activity Restrictions/Additional Instructions: 1.UTI: You are being treated with a urinary tract infection and just started taking doxycycline. This may be the reason he is confused. Please make sure he continues to take the doxycycline and drinks lots of fluids as it has him dehydrated. His kidneys show that he is mildly dehydrated. Please have the kidney function checked again in a few days to monitor improvement. Return to the ER with worsening symptoms at any time for further evaluation. Coding Level of Care Code ED It Telecom Technician for Hosea Delgado
[2021-02-10 21:46] VITALS: BP 169/83; PULSE 68; RESP 16; O2SAT 97
== END 2021-02-10 21:48 | disposition home or self-care (01) ==
PROVIDERS: Emergency Provider Family Medicine; PCP Family Medicine
DX: N39.0 Urinary tract infection, site not specified (principal); N17.9 Acute kidney failure, unspecified; E86.0 Dehydration; Z79.02 Long term (current) use of antithrombotics/antiplatelets; Z79.84 Long term (current) use of oral hypoglycemic drugs; J44.9 Chronic obstructive pulmonary disease, unspecified; Z86.73 Personal history of transient ischemic attack (TIA), and cerebral infarction without residual deficits; E13.9 Other specified diabetes mellitus without complications; I10 Essential (primary) hypertension; Z85.51 Personal history of malignant neoplasm of bladder; Z87.891 Personal history of nicotine dependence
CPT/HCPCS: 51701; 70450; 71045; 74176; 80053; 81001; 82550; 83605; 83880; 84484; 85025; 93005; 96360; 99284; J7030

== ENCOUNTER 2021-02-20 17:10 | Emergency (ER) | payer MEDICARE, OTHER, SELFPAY ==
[2021-02-20 17:21] VITALS: BP 177/93; PULSE 61; RESP 18; TEMP 36.6; O2SAT 99; BMI 26.5
[2021-02-20 17:30] VITALS: BP 175/82; PULSE 61; RESP 18; O2SAT 99
--- NOTE | 2021-02-20 17:30 | XRR_ITS ---
PROCEDURE INFORMATION: Exam: XR Pelvis Exam date and time: 02/20/2021 5:40 PM Age: 85 years old Clinical indication: Pelvic pain; Prior surgery; Surgery type: Penile; Additional info: Lower pelvic, coccyx pain TECHNIQUE: Imaging protocol: XR pelvis. Views: 1 or 2 view. COMPARISON: CT abdomen pelvis wo con [id number] 02/10/2021 7:00 PM FINDINGS: Bones/joints: There is marked lower lumbar degenerative disease. The pelvis and sacrum are intact. Femoroacetabular alignment is normal bilaterally. The proximal femora are intact. Soft tissues: Soft tissues are unremarkable. Organs: Penile prosthesis is partially imaged. Vasculature: There is extensive vascular calcification in the pelvis and proximal thighs. XR/XR pelvis 1-2V* [id number] IMPRESSION: No acute findings.
--- NOTE | 2021-02-20 17:30 | XRR_ITS ---
PROCEDURE INFORMATION: Exam: XR Lumbosacral Spine Exam date and time: 02/20/2021 5:40 PM Age: 85 years old Clinical indication: Low back pain; Additional info: Lumbar spine pain TECHNIQUE: Imaging protocol: XR of the lumbosacral spine. Views: 2 or 3 views. COMPARISON: CR XR sacrum coccyx min 2V [id number] 02/13/2021 12:43 PM FINDINGS: Bones/joints: There is moderate convex right upper lumbar scoliosis. The visible portion of the pelvis and sacrum is intact. Vertebral body height is maintained. There is multilevel severe lumbar degenerative disc disease, greatest at L1-L2 and L2-L3. There is grade 1 degenerative anterolisthesis of L5 on S1. L5 pars interarticularis are poorly visualized. There is marked multilevel facet spondylosis. Soft tissues: Unremarkable. Vasculature: There is extensive atherosclerotic calcification of the abdominal aorta. XR/XR lumbar spine 2-3V* [id number] IMPRESSION: 1. Grade 1 anterolisthesis of L5 on S1. indeterminate for L5 pars defects. 2. Moderate to severe multilevel lumbar degenerative disease.
--- NOTE | 2021-02-20 17:31 | XRR_ITS ---
PROCEDURE INFORMATION: Exam: XR Cervical Spine Exam date and time: 02/20/2021 5:40 PM Age: 85 years old Clinical indication: Neck pain; Patient HX: Weakness; Additional info: Nontraumatic pain TECHNIQUE: Imaging protocol: XR of the cervical spine. Views: 2 or 3 views. COMPARISON: CT angio neck [id number] 12/28/2019 10:12 AM FINDINGS: Bones/joints: The cervical spine is adequately visualized on the lateral view through C6. C7 is obscured. There is moderate degenerative disc disease at C5-C6 and C6-C7. No fracture is visible. Soft tissues: Visible soft tissues are unremarkable. XR/XR cervical spine 3V* [id number] IMPRESSION: 1. No acute findings. 2. Moderate lower cervical degenerative disc disease.
--- NOTE | 2021-02-20 17:37 | W.ED.BACK ---
HPI - Back Pain/Injury General: Chief Complaint: Back Pain/Injury Stated Complaint: BACK PAIN Time Seen by Provider: 02/20/21 17:19 History of Present Illness: HPI Narrative: Patient was sent in by EMS from a detention facility after he complained of some neck pain and lower back pain that started earlier today after doing physical therapy and it is progressed as the day is gone on EMS did not give any medications in route and per patient the facility did not give him any type of pain medicine today although he has Tylenol listed as a as needed medication on his list. He says it is nontraumatic he did not fall or injure himself. Denies any new numbness or tingling denies any bowel or bladder issues denies any urinary complaints recently had a urinary tract infection and treated with doxycycline was also here recently for some mild dehydration Review of Systems Narrative: General: denies fatigue, fever or chills HEENT: denies ear pain, denies nasal congestion, denies vision changes, denies sore throat Neck: denies masses or pain Resp: denies cough, denies shortness of breath, denies pleuritic pain Cardio: denies chest pain, denies edema GI: denies abdominal pain, denies N/V/D, denies black/tarry or bloody stools : denies hematuria, denies dysuria Neuro: denies headache, denies dizziness, denies motor or sensory changes Musculoskeletal: denies pain in legs, denies swelling, lower back pain Skin: denies rashes Psych: denies SI or HI Endocrine: denies thyroid symptoms, denies lymphadenopathy all over ROS reviewed and patient denies PFS ED PFSH: Medical History Attention deficit disorder Carotid stenosis Cataract COPD (chronic obstructive pulmonary disease) CVA (cerebrovascular accident) cva 3 weeks ago Diabetes 1.5, managed as type 2 Gout Hypertension Malignant neoplasm of lateral wall of bladder Sleep apnea Surgical History H/O hemorrhoidectomy H/O vasectomy History of penile implant Requires deflation before catheter placement History of total right knee replacement Status post carotid surgery Family History Father , at age 59-pneumonia Arthritis Mother , at age 89 Dementia Social History Smoking and tobacco status: former smoker Alcohol intake: never Lives independently: No Household members: spouse Marital status: Current occupational status: retired History of recent travel: No Physical Exam Narrative: EXAM NARRATIVE: General: a/o/3, no distress Head: atraumatic HEENT: normal eyes, normal conjunctiva, normal hearing, normal external nose, normal mouth, mucous membranes moist Neck: FROM, trachea midline Chest: normal expansion, no gross deformities Resp: normal speech, no retractions, no accessory muscle use, CTA bilaterally Cardio: regular rate and rhythm and no murmur, no peripheral edema, normal peripheral pulses GI: soft, flat non tender, no guarding normal BS : deferred Musculoskeletal: FROM, no pain or gross deformities, neg straight leg raising, normal sensation, chronic hand/foot numbness per pt but he feels touch, easily rolled over to each side for exam, no specific areas on pain on cervical, thoracic, lumbar spine. Neuro: a/o appropriate for age, no gross motor or sensory deficits, CN II-XII grossly intact, normal coordination, normal speech Skin: no vesicles, mild macular areas bilateral mid back Psych: cooperative, normal mood and effect Course Vital Signs: Vital signs: Vital Signs Temperature 97.8 F 02/20/21 17:21 Pulse Rate 61 02/20/21 17:30 Respiratory Rate 18 02/20/21 17:30 Blood Pressure 175/82 02/20/21 17:30 Pulse Oximetry 99 02/20/21 17:30 MDM - Back Pain/Injury MDM Narrative: Medical decision making narrative: Reviewed patient's chart and he just recently had sacrum coccyx x-rays a couple of days ago he also had a CT scan on 02/10/2021 that did not show any significant bony findings and had a negative abdominal CT patient denies falling says it started after physical therapy today he does not feel that staff gave him any medication today for the pain he seems alert he is answering questions appropriately his back has just a mild bilateral macular papular areas but it is definitely not shingles not sure if he has a little slight dermatitis he said his skin was burning a little bit I do not see any indication to do other lab work he just had some done 9 days ago however we will recheck a urine since he had a recent infection that was MRSA and he was on doxycycline I can do some plain x-rays of his spine today I will throwing a pelvis although again everything was negative on his CT 8 days ago I can do some plain cervical spine x-rays he does not have any pain with flexion it seems to be more musculoskeletal he has no midline pain says it is more sore from the way has been laying on the pillow on the ambulance ride and will also give him a dose of tramadol here to see if that helps with his pain X-rays were negative examined his gluteal cleft and sacral coccyx area and there is no signs of abscess hemorrhoids or skin breakdown Patient thinks the tramadol helped him so recommend that they add that on his regimen at the facility Lab Data: Labs: Lab Results 02/20/21 Range/Units 17:30 Urine Color Yellow (Yellow) Urine Appearance Clear (CLEAR) Urine pH 7 (5-7) Ur Specific Gravit y 1.005 (1.005-1.030) Urine Protein Trace (Negative) Urine Glucose (UA) Norm (Normal) Urine Ketones Negative (Negative) Urine Blood Neg (Negative) Urine Nitrate Negative (Negative) Urine Bilirubin Neg (Negative) Urine Urobilinogen Norm (Negative) mg/dL Ur Leukocyte Darling ase Negative (Negative) Urine RBC None (0-2) /hpf Urine WBC 0-4 H (0-5) /hpf Ur Squamous Epith Cells 0-4 H (0-5) /hpf Amorphous Sediment Not Reportable Urine Bacteria Trace (NONE) /hpf Discharge Plan Discharge Patient Disposition: [facility] Clinical Impression: Neck pain Low back pain Qualifiers: Chronicity: unspecified Back pain laterality: unspecified Sciatica presence: without sciatica Qualified Code(s): M54.5 - Low back pain Condition: Stable Discharge Orders: Discharge ED (Routine); Ordered 02/20/21 Ordered By: Karely Herrera Referrals: Federico Hinton MD [Primary Care Provider] - Discharge Diet: Usual diet Discharge Activity: As per PT/OT instructions Patient Instructions: Degenerative Disc Disease (ED) Activity Restrictions/Additional Instructions: Patient had tramadol here in the emergency department and it seemed to help him so you may check with your facility provider to see if they approve or agree with that plan I do see has Tylenol as needed you can try heat packs to the area he had plain x-rays done of his lower back his pelvis his neck all shows degenerative disc disease as did his CAT scan showed that as well when he was here on 02/10/21 Urine was repeated it was normal as well Thank you for choosing [facility] for your healthcare needs today. Please realize this is an emergency room and that we are providing you with a medical screening exam and this may not be complete and all inclusive of all the testing and or work up that you may need to determine your ailment or severity of your illness. It is very important that you follow up as instructed or that you return to the Emergency Department should you have concerns or if your condition changes or worsens in any way. Coding Level of Care Code ED Servicing Manager for Hosea Delgado
[2021-02-20 17:45] LABS: Urine Appearance Clear (CLEAR); Urine Color Yellow (Yellow)
[2021-02-20 17:46] LABS: Add Urine Culture? No; Bacteria Urine TRACE /hpf; Bilirubin Urine Neg (Negative); Blood Urine Neg (Negative); Glucose Urine UA Norm (Normal); Ketones Urine Negative (Negative); Leukocyte Esterase Urine Negative (Negative); Nitrate Urine Negative (Negative); Protein Urine Trace (Negative); Specific Gravity, Urine 1.005 (1.005-1.030); Squamous Epithelial Cell Urine 0-4 /hpf (0-5); Urobilinogen Urine Norm (Negative); WBC Urine 0-4 /hpf (0-5); pH Urine 7 (5-7)
[2021-02-20] MEDS: TRAMadol 50 mg Tablet PO (17:47)
--- NOTE | 2021-02-20 19:32 | PC.NURSE ---
attempted to call report to [place] about patient but no answer x 2.
== END 2021-02-20 19:45 ==
PROVIDERS: Emergency Provider Emergency Medicine; PCP Family Medicine
DX: M54.2 Cervicalgia (principal); M54.5 Low back pain; Z87.891 Personal history of nicotine dependence
CPT/HCPCS: 72040; 72100; 72170; 81001; 99283

== ENCOUNTER 2021-02-26 15:20 | Outpatient (CLI) | payer MEDICARE, OTHER, SELFPAY ==
[2021-02-26 15:34] LABS: Basophils % 0.7 %; Eosinophils # 0.4 10^3/uL (0.0-0.8); Eosinophils % 6.6 %; Hematocrit 34.6 % (42.0-52.0); Hemoglobin 11.9 g/dL (11.7-16.6); Lymphocytes # 1.1 10^3/uL (0.8-4.8); Lymphocytes % 17.4 %; Mean Corpuscular HGB Conc 34.4 g/dL (30.0-36.0); Mean Corpuscular Hemoglobin 29.7 pg (28.0-34.0); Mean Corpuscular Volume 86.3 fL (80-94); Monocytes # 0.6 10^3/uL (0.2-0.9); Monocytes % 10.3 %; Neutrophils # 3.95 10^3/uL (1.8-7.7); Neutrophils % 64.7 %; Nucleated Red Blood Cells % 0 %; Platelet Count 239 10^3/cmm (130-400); Red Blood Count 4.01 10^6/uL (4.1-5.3); Red Cell Distribution Width 13.3 % (12.1-15.1); White Blood Count 6.1 10^3/uL (4.0-10.0)
[2021-02-26 15:49] LABS: Add Urine Microscopic? YES; Bilirubin Urine Neg (Negative); Blood Urine Neg (Negative); Glucose Urine UA Norm (Normal); Ketones Urine Negative (Negative); Leukocyte Esterase Urine Negative (Negative); Nitrate Urine Negative (Negative); Protein Urine 1+ (Negative); Specific Gravity, Urine 1.015 (1.005-1.030); Urine Appearance Clear (CLEAR); Urine Color Yellow (Yellow); Urobilinogen Urine Norm (Negative); pH Urine 5 (5-7)
[2021-02-26 16:13] LABS: Alanine Aminotransferase 11 U/L (0-41); Albumin Level 3.6 g/dL (3.5-5.2); Alkaline Phosphatase 114 IU/L (40-130); Anion Gap 13.4 (5-19); Aspartate Amino Transferase 15 U/L (0-40); Blood Urea Nitrogen 30 mg/dL (8-23); Calcium 8.2 mg/dL (8.5-10.5); Carbon Dioxide 26 mmol/L (22-29); Chloride 102 mmol/L (98-107); Globulin 2.7 g/dL (1.3-4.6); Glucose 88 mg/dL (65-115); Osmolality Calculated 290 mOsm/kg (285-295); Potassium 4.4 mmol/L (3.5-5.1); Sodium 137 mmol/L (136-145); Thyroid Stimulating Hormone 2.51 uIU/mL (0.27-4.20); Total Bilirubin 0.4 mg/dL (0.15-1.2); Total Protein 6.3 g/dL (6.6-8.7); Vitamin B12 353 pg/mL (232-1245)
[2021-02-26 16:26] LABS: Add Urine Culture? No; Bacteria Urine TRACE /hpf; RBC Urine 0-4 /hpf (0-2); Squamous Epithelial Cell Urine 0-4 /hpf (0-5)
== END 2021-02-26 15:21 | disposition home or self-care (01) ==
LOC: LAB 15:23
PROVIDERS: PCP Family Medicine; Visit Provider Family Medicine
DX: N39.0 Urinary tract infection, site not specified (principal)
CPT/HCPCS: 80053; 81001; 82607; 84443; 85025; 87086

== ENCOUNTER 2021-04-24 14:15 | Outpatient (CLI) | payer MEDICARE, OTHER, SELFPAY ==
[2021-04-24 14:16] LABS: Basophils % 0.7 %; Eosinophils # 0.3 10^3/uL (0.0-0.8); Eosinophils % 4.4 %; Hematocrit 38.3 % (42.0-52.0); Hemoglobin 12.5 g/dL (11.7-16.6); Lymphocytes # 0.8 10^3/uL (0.8-4.8); Lymphocytes % 13.7 %; Mean Corpuscular HGB Conc 32.6 g/dL (30.0-36.0); Mean Corpuscular Hemoglobin 29.8 pg (28.0-34.0); Mean Corpuscular Volume 91.4 fL (80-94); Mean Platelet Volume 9.6 fL (7.4-10.4); Monocytes # 0.5 10^3/uL (0.2-0.9); Monocytes % 8.6 %; Neutrophils # 4.13 10^3/uL (1.8-7.7); Neutrophils % 72.2 %; Nucleated Red Blood Cells % 0 %; Platelet Count 213 10^3/cmm (130-400); Red Blood Count 4.19 10^6/uL (4.1-5.3); Red Cell Distribution Width 13.1 % (12.1-15.1); White Blood Count 5.7 10^3/uL (4.0-10.0)
[2021-04-24 14:39] LABS: Albumin Level 3.6 g/dL (3.5-5.2); Anion Gap 12.7 (5-19); Blood Urea Nitrogen 31 mg/dL (8-23); Calcium 8.3 mg/dL (8.5-10.5); Carbon Dioxide 27 mmol/L (22-29); Chloride 102 mmol/L (98-107); Glucose 121 mg/dL (65-115); Phosphorus 3.3 mg/dL (2.5-4.5); Potassium 4.7 mmol/L (3.5-5.1); Sodium 137 mmol/L (136-145); Uric Acid 6.4 mg/dL (3.4-7.0)
[2021-04-24 14:54] LABS: Calcium 8.3 mg/dL (8.5-10.5)
[2021-04-24 14:56] LABS: 25 Hydroxy Vitamin D 18 ng/mL (30-100)
[2021-04-24 16:27] LABS: Creatinine Urine, Random 37 mg/dL (39-259); Microalbumin Random Urine 18 ug/dL (0-20)
[2021-04-24 16:39] LABS: Microalbum Creatinine Ratio Ur 486 mg/dL (0-20)
== END 2021-04-24 14:16 | disposition home or self-care (01) ==
LOC: LAB 14:26
PROVIDERS: PCP Family Medicine; Visit Provider Internal Medicine Nephrology
DX: I12.9 Hypertensive chronic kidney disease with stage 1 through stage 4 chronic kidney disease, or unspecified chronic kidney disease (principal); I10 Essential (primary) hypertension; E56.9 Vitamin deficiency, unspecified
CPT/HCPCS: 80069; 82044; 82306; 82310; 83970; 84550; 85025

== ENCOUNTER 2021-05-28 12:28 | Outpatient (CLI) | payer MEDICARE, OTHER, SELFPAY ==
[2021-05-28 13:25] LABS: Basophils # 0.1 10^3/uL (0.0-0.1); Basophils % 0.8 %; Eosinophils # 0.3 10^3/uL (0.0-0.8); Eosinophils % 4.1 %; Hematocrit 40.5 % (42.0-52.0); Hemoglobin 13.2 g/dL (11.7-16.6); Lymphocytes # 0.9 10^3/uL (0.8-4.8); Lymphocytes % 13.9 %; Mean Corpuscular HGB Conc 32.6 g/dL (30.0-36.0); Mean Corpuscular Hemoglobin 29.7 pg (28.0-34.0); Mean Corpuscular Volume 91.2 fl (80-94); Mean Platelet Volume 10.1 fL (7.4-10.4); Monocytes # 0.6 10^3/uL (0.2-0.9); Monocytes % 8.9 %; Neutrophils # 4.55 10^3/uL (1.8-7.7); Nucleated Red Blood Cells % 0 %; Platelet Count 219 10^3/cmm (130-400); Red Blood Count 4.44 10^6/uL (4.1-5.3); Red Cell Distribution Width 12.6 % (12.1-15.1); White Blood Count 6.3 10^3/uL (4.0-10.0)
[2021-05-28 13:56] LABS: Alanine Aminotransferase 9 U/L (0-41); Albumin Level 3.4 g/dL (3.5-5.2); Alkaline Phosphatase 109 IU/L (40-130); Aspartate Amino Transferase 10 U/L (0-40); Blood Urea Nitrogen 30 mg/dL (8-23); Calcium 8.6 mg/dL (8.5-10.5); Carbon Dioxide 28 mmol/L (22-29); Chloride 103 mmol/L (98-107); Globulin 2.9 g/dL (1.3-4.6); Glucose 149 mg/dL (65-115); Osmolality Calculated 299 mOsm/kg (285-295); Sodium 140 mmol/L (136-145); Total Bilirubin 0.3 mg/dL (0.15-1.2); Total Protein 6.3 g/dL (6.6-8.7)
[2021-05-28 14:43] LABS: Estmated Average Glucose 117; Hemoglobin A1C 5.7 % (4.0-6.0)
== END 2021-05-28 12:29 | disposition home or self-care (01) ==
PROVIDERS: PCP Family Medicine; Visit Provider Family Medicine
DX: E11.22 Type 2 diabetes mellitus with diabetic chronic kidney disease (principal)
CPT/HCPCS: 80053; 83036; 85025

== ENCOUNTER 2021-07-04 16:58 | Inpatient (IN) | payer MEDICARE, OTHER, SELFPAY ==
[2021-07-04] VITALS (12 sets, daily range): BP systolic 116–192; BP diastolic 90–114; PULSE 94–130; RESP 20–27; TEMP 36.6–37.1; O2SAT 88–99; BMI 27.9
--- NOTE | 2021-07-04 17:13 | XRR_ITS ---
PROCEDURE INFORMATION: Exam: XR Chest Exam date and time: 07/04/2021 5:13 PM Age: 86 years old Clinical indication: Cough; Additional info: Cough. Fall, BUCKLEY, confusion TECHNIQUE: Imaging protocol: XR of the chest. Views: 1 view. COMPARISON: CR XR chest 1V portable [id number] 02/10/2021 5:31 PM FINDINGS: Lungs: Scattered areas of scarring most prominent the lung apices. No consolidation. Pleural spaces: Unremarkable. No pleural effusion. No pneumothorax. Heart/Mediastinum: Unremarkable. No cardiomegaly. Bones/joints: Visualized osseous structures are intact. XR/XR chest 1V portable [id number] IMPRESSION: Stable exam, no acute findings. Radiation Dose CTDIVOL = (mGy): DLP = (mGy-cm)
--- NOTE | 2021-07-04 17:13 | CTR_ITS ---
PROCEDURE INFORMATION: Exam: CT Head Without Contrast Exam date and time: 07/04/2021 5:13 PM Age: 86 years old Clinical indication: Injury or trauma; Blunt trauma (contusions or hematomas); With loss of consciousness; Injury details: Fall x today. Hematoma on the back of head. Headache; Additional info: Confusion TECHNIQUE: Imaging protocol: Computed tomography of the head without contrast. Radiation optimization: All CT scans at this facility use at least one of these dose optimization techniques: automated exposure control; mA and/or kV adjustment per patient size (includes targeted exams where dose is matched to clinical indication); or iterative reconstruction. COMPARISON: CT head wo con* [id number] 02/10/2021 6:00 PM RADIATION DOSE METRICS: Total DLP (mGy-cm): 982.07 FINDINGS: Brain: No hemorrhage. Moderate diffuse cerebral atrophy and sequela of chronic small ischemic disease. No mass effect. Cerebral ventricles: No ventriculomegaly. Paranasal sinuses: Partially opacified right ethmoid and frontal sinuses. The rest of the paranasal sinuses are well pneumatized. Mastoid air cells: Visualized mastoid air cells are well aerated. Bones/joints: Unremarkable. No acute fracture. Soft tissues: Contusion along the posterior scalp. CT/CT head wo con* [id number] IMPRESSION: No acute traumatic intracranial abnormality. Radiation Dose CTDIVOL = (mGy): DLP = 982.07 (mGy-cm)
--- NOTE | 2021-07-04 17:13 | ECG_ITS ---
[facility] Test Date: 2021-07-04 Pat Name: Neha Pruett Department: Room: Gender: Male Tripoler: : 1935 Requested By: Ashok Kelsey Order Number: [id number] Carolyn MD: Sarah Maier M.D. Measurements Intervals [place] Rate: 135 P: AK: QRS: 5 QRSD: 86 T: 57 QT: 308 QTc: 462 Interpretive Statements ATRIAL FIBRILLATION WITH RAPID VENTRICULAR RESPONSE MODERATE ST DEPRESSION [0.05+ mV ST DEPRESSION] Compared to ECG 02/10/2021 18:34:01 ST (T wave) deviation now present Sinus bradycardia no longer present Short AK interval no longer present Electronically Signed On 07-04-2021 20:02:57 CDT by Sarah Maier M.D. [id number]
--- NOTE | 2021-07-04 17:14 | W.ED.GENADLT ---
Documented by User: Ashok Kelsey MD 07/04/21 20:25 HPI - General Adult History of Present Illness: HPI narrative: This patient is an 86-year-old male who presents to the emergency department for some confusion and blurred vision. Patient reportedly got up about 3 AM to use the bathroom and had a fall hitting his head. Patient is awake and alert x3 at this time. Patient states has been previous blurred vision but it seems to be resolved at this time. Was brought into the emergency department for medical evaluation. No obvious signs of trauma. Will do medical evaluation treat as needed Onset (ago): hour(s) Location: head Severity: moderate Relieving factors: none Exacerbating factors: none Associated symptoms: Reports no associated symptoms and confusion; Deny chest pain, dyspnea, headache(s), nausea, rash, palpitations or vomiting Review of Systems General: Reports: 10 or more systems reviewed and unremarkable except in HPI and below Const: Denies: fever(s), chills, body aches or fatigue Eyes: Denies: change in vision or blurry vision ENMT: Denies: throat pain, hoarseness or mouth pain Card: Reports: irregular heart rhythm; Denies: chest pain, palpitations, edema, swelling of feet/ankles or lightheadedness Resp: Denies: dyspnea, productive cough, non-productive cough, wheezing or pain on inspiration GI: Denies: abdominal pain, nausea or vomiting : Denies: flank pain, dysuria, urinary frequency, urinary urgency or urinary hesitancy Musc: Denies: neck pain, back pain, extremity pain, extremity swelling, joint pain, joint swelling, joint redness, joint warmth or limited range of motion Skin/Breast: Denies: rash, pruritus, erythema or skin tenderness Neuro: Reports: confusion; Denies: headache(s), numbness in extremities or weakness in extremities Psych: Denies: anxiety or depression PFSH ED PFSH: Medical History Attention deficit disorder Carotid stenosis Cataract COPD (chronic obstructive pulmonary disease) CVA (cerebrovascular accident) cva 3 weeks ago Diabetes 1.5, managed as type 2 Gout Hypertension Malignant neoplasm of lateral wall of bladder Sleep apnea Surgical History H/O hemorrhoidectomy H/O vasectomy History of penile implant Requires deflation before catheter placement History of total right knee replacement Status post carotid surgery Family History Father , at age 59-pneumonia Arthritis Mother , at age 89 Dementia Social History Smoking and tobacco status: former smoker Alcohol intake: never Lives independently: No Household members: spouse Marital status: Current occupational status: retired History of recent travel: No Physical Exam Const: COMMON NORMALS: no acute distress, average body habitus, patient oriented x3, no limitations, healthy appearing, alert and well nourished HENMT: COMMON NORMALS: normocephalic, atraumatic, hearing grossly normal bilaterally, external ears normal, EAC's normal, TM's normal bilaterally, Normal external nose present, Normal nasal mucous membranes and turbinates present, moist oral mucous membranes, oropharynx normal, dentition normal and gingiva normal HEAD & SCALP: normocephalic and atraumatic NOSE: Normal external nose present and Normal nasal mucous membranes and turbinates present EXTERNAL EAR: Yes external ears normal EXTERNAL AUDITORY CANAL: EAC's normal TYMPANIC MEMBRANE: TM's normal bilaterally Neck/C-Spine: COMMON NORMALS: full ROM, no lymphadenopathy, supple, no meningeal signs, no JVD, Thyroid normal and No carotid bruits THYROID: Thyroid normal Chest: COMMONS NORMALS: normal inspection of the chest, normal palpation of entire chest wall, normal inspection of the breasts and normal palpation of the breasts Breast/axilla inspection: Yes normal inspection of the breasts BREAST/AXILLA PALPATION: Yes normal palpation of the breasts Resp: COMMON NORMALS: normal respiratory effort, No retractions, No use of accessory muscles, clear to auscultation bilaterally and percussion normal AUSCULTATION: clear to auscultation bilaterally PERCUSSION: percussion normal Cardio: COMMON NORMALS: no JVD, regular rhythm, S1 normal heart sound present, S2 normal heart sound present, No gallops present (Cardio), No clicks present (Cardio), No murmurs present (Cardio), No rub (Cardio) and Peripheral pulses 2+ throughout RATE: tachycardic RHYTHM: regular rhythm HEART SOUNDS: S1 normal heart sound present and S2 normal heart sound present PERIPHERAL PULSES: Peripheral pulses 2+ throughout GI: COMMON NORMALS: Normal to inspection, nondistended, normoactive bowel sounds present, Soft to palpation, non-tender, No hepatosplenomegaly present, no masses and no bruits PALPATION: Yes Soft to palpation and Yes No hepatosplenomegaly present : COMMON NORMALS: Yes no CVA tenderness BLADDER/KIDNEY EXAM: Yes no CVA tenderness Back/Pelvis: COMMON NORMALS: no CVA tenderness, thoracic and lumbar spine normal to inspection, no thoracic nor lumbar tenderness, thoraco-lumbar ROM normal and straight leg raise negative bilaterally Extremity: COMMON NORMALS: normal to inspection, full ROM, capillary refill normal, no joint enlargement, no clubbing, cyanosis or edema, no calf tenderness and no pedal edema Neuro: COMMON NORMALS: patient oriented x3 SENSORIUM/ORIENTATION: Yes alert MENINGEAL SIGNS: Yes no meningeal signs Course Consultations: Consultation #1: I did discuss at length with hospitalist he will see patient and admit to the floor. Time: 20:24 Vital Signs: Vital signs: Vital Signs Temperature 98.7 F 07/04/21 16:59 Pulse Rate 112 H 07/04/21 17:17 Blood Pressure 116/90 07/04/21 17:17 Pulse Oximetry 96 07/04/21 17:17 MDM - General Adult MDM Narrative: Medical decision making narrative: This patient is an 86-year-old male who presents to the emergency department for some confusion and blurred vision. Patient reportedly got up about 3 AM to use the bathroom and had a fall hitting his head. Patient is awake and alert x3 at this time. Patient states has been previous blurred vision but it seems to be resolved at this time. Was brought into the emergency department for medical evaluation. No obvious signs of trauma. Will do medical evaluation treat as needed Patient has A. fib with RVR and elevated troponin. Patient be started on chronic Cardizem drip. Patient also will be given Lovenox. Dr. Knapp will see patient write additional orders. Lab Data: Labs: Lab Results 07/04/21 07/04/21 07/04/21 17:20 17:20 17:20 WBC 6.3 10^3/uL 10^3/ uL (4.0-10.0) RBC 4.82 10^6/uL 10^6 /uL (4.1-5.3) Hgb 14.5 g/dL g/dL (11.7-16.6) Hct 43.5 % % (42.0-52.0) MCV 90.2 fl fl (80-94) MCH 30.1 pg pg (28.0-34.0) MCHC 33.3 g/dL g/dL (30.0-36.0) RDW 12.6 % % (12.1-15.1) Plt Count 249 10^3/cmm 10^3 /cmm (130-400) MPV 9.9 fL fL (7.4-10.4) Neut % (Auto) 69.5 % % Lymph % (Auto) 16.3 % % Pender % (Auto) 8.3 % % Eos % (Auto) 5.1 % % Baso % (Auto) 0.5 % % Neut # (Auto) 4.34 10^3/uL 10^3 /uL (1.8-7.7) Lymph # (Auto) 1.0 10^3/uL 10^3/ uL (0.8-4.8) Pender # (Auto) 0.5 10^3/uL 10^3/ uL (0.2-0.9) Eos # (Auto) 0.3 10^3/uL 10^3/ uL (0.0-0.8) Baso # (Auto) 0.0 10^3/uL 10^3/ uL (0.0-0.1) Nucleated RBC % (a uto) 0 % % Nucleated RBCs # 0.0 /100WBC /100W BC PT 13.40 SECONDS SEC ONDS (12.1-14.9) INR 0.99 (0.8-1.2) APTT 29.3 SECONDS SECO NDS (23.9-36.7) Sodium 137 mmol/L mmol/L (136-145) Potassium 4.6 mmol/L mmol/L (3.5-5.1) Chloride 101 mmol/L mmol/L (98-107) Carbon Dioxide 24 mmol/L mmol/L (22-29) Anion Gap 16.6 (5-19) BUN 39 mg/dL H mg/dL (8-23) Creatinine 1.5 mg/dL H mg/dL (0.7-1.2) GFR Calculation Not Reportable Glucose 150 mg/dL H mg/dL (65-115) Calculated Osmolal ity 296 mOsm/kg H mOs m/kg (285-295) Calcium 9.0 mg/dL mg/dL (8.5-10.5) Total Bilirubin 0.4 mg/dL mg/dL (0.15-1.2) AST 13 U/L U/L (0-40) ALT 14 U/L U/L (0-41) Alkaline Phosphata se 131 IU/L H IU/L (40-130) Troponin T Baselin e Troponin T 120 Min [place] Delta Troponin T NT-Pro-B Natriuret Pep 3143 pg/mL H pg/m L (0-450) Total Protein 6.3 g/dL L g/dL (6.6-8.7) Albumin 3.8 g/dL g/dL (3.5-5.2) Globulin 2.5 g/dL g/dL (1.3-4.6) 07/04/21 07/04/21 17:20 19:23 WBC RBC Hgb Hct MCV MCH MCHC RDW Plt Count MPV Neut % (Auto) Lymph % (Auto) Pender % (Auto) Eos % (Auto) Baso % (Auto) Neut # (Auto) Lymph # (Auto) Pender # (Auto) Eos # (Auto) Baso # (Auto) Nucleated RBC % (a uto) Nucleated RBCs # PT INR APTT Sodium Potassium Chloride Carbon Dioxide Anion Gap BUN Creatinine GFR Calculation Glucose Calculated Osmolal ity Calcium Total Bilirubin AST ALT Alkaline Phosphata se Troponin T Baselin e 45 ng/L H ng/L (0-15) Troponin T 120 Min [place] 57.13 ng/L H ng/L (0-15) Delta Troponin T 12.13 ABS# H* ABS # (0-10) NT-Pro-B Natriuret Pep Total Protein Albumin Globulin Imaging Data^: CT Head: Attestation: I personally reviewed and interpreted this imaging study as follows: Radiologist's impression: FINDINGS: Brain: No hemorrhage. Moderate diffuse cerebral atrophy and sequela of chronic small ischemic disease. No mass effect. Cerebral ventricles: No ventriculomegaly. Paranasal sinuses: Partially opacified right ethmoid and frontal sinuses. The rest of the paranasal sinuses are well pneumatized. Mastoid air cells: Visualized mastoid air cells are well aerated. Bones/joints: Unremarkable. No acute fracture. Soft tissues: Contusion along the posterior scalp. CT/CT head wo con* [id number] IMPRESSION: No acute traumatic intracranial abnormality. CXR: Attestation: I personally reviewed and interpreted this imaging study as follows: Radiologist's impression: IMPRESSION: Stable exam, no acute findings. EKG Data^: EKG 1: Attestation: I personally reviewed and interpreted this EKG as follows: EKG interpretation date: 07/04/21 EKG interpretation time: 17:58 Prior EKG tracings: not available for review Interpretation: Atrial fibrillation with RVR nonspecific ST changes heart rate 135 Computer generated interpretation: Chest X-Ray 07/04/21 17:13 IMPRESSION: Stable exam, no acute findings. Radiation Dose CTDIVOL = (mGy): DLP = (mGy-cm) Head CT 07/04/21 17:13 IMPRESSION: No acute traumatic intracranial abnormality. Radiation Dose CTDIVOL = (mGy): DLP = 982.07 (mGy-cm) EKG 2: Attestation: I personally reviewed and interpreted this EKG as follows: EKG interpretation date: 07/04/21 EKG interpretation time: 19:18 Prior EKG tracings: available for review Interpretation: Atrial fibrillation heart rate 110 Computer generated interpretation: Chest X-Ray 07/04/21 17:13 IMPRESSION: Stable exam, no acute findings. Radiation Dose CTDIVOL = (mGy): DLP = (mGy-cm) Head CT 07/04/21 17:13 IMPRESSION: No acute traumatic intracranial abnormality. Radiation Dose CTDIVOL = (mGy): DLP = 982.07 (mGy-cm) Discharge Plan Discharge Patient Disposition: Admitted As Inpatient Admit Provider: Damien Núñez Clinical Impression: Non-ST elevation [place] (NSTEMI), Atrial fibrillation with rapid ventricular response, Dementia Condition: Stable Coding Level of Care Code ED Pugger Helper for Chg Fwd Exam Comprehensive Documented by User: Damien Núñez MD 07/05/21 00:15 PFSH ED PFSH: Medical History Attention deficit disorder Carotid stenosis Cataract COPD (chronic obstructive pulmonary disease) CVA (cerebrovascular accident) cva 3 weeks ago Diabetes 1.5, managed as type 2 Gout Hypertension Malignant neoplasm of lateral wall of bladder Sleep apnea Surgical History H/O hemorrhoidectomy H/O vasectomy History of penile implant Requires deflation before catheter placement History of total right knee replacement Status post carotid surgery Family History Father , at age 59-pneumonia Arthritis Mother , at age 89 Dementia Social History Smoking and tobacco status: former smoker Alcohol intake: never Lives independently: No Household members: spouse Marital status: Current occupational status: retired History of recent travel: No Course Vital Signs: Vital signs: Vital Signs Temperature 98.7 F 07/04/21 16:59 Pulse Rate 112 H 07/04/21 17:17 Blood Pressure 116/90 07/04/21 17:17 Pulse Oximetry 96 07/04/21 17:17 MDM - General Adult Lab Data: Labs: Lab Results 07/04/21 07/04/21 07/04/21 17:20 17:20 17:20 WBC 6.3 10^3/uL 10^3/ uL (4.0-10.0) RBC 4.82 10^6/uL 10^6 /uL (4.1-5.3) Hgb 14.5 g/dL g/dL (11.7-16.6) Hct 43.5 % % (42.0-52.0) MCV 90.2 fl fl (80-94) MCH 30.1 pg pg (28.0-34.0) MCHC 33.3 g/dL g/dL (30.0-36.0) RDW 12.6 % % (12.1-15.1) Plt Count 249 10^3/cmm 10^3 /cmm (130-400) MPV 9.9 fL fL (7.4-10.4) Neut % (Auto) 69.5 % % Lymph % (Auto) 16.3 % % Pender % (Auto) 8.3 % % Eos % (Auto) 5.1 % % Baso % (Auto) 0.5 % % Neut # (Auto) 4.34 10^3/uL 10^3 /uL (1.8-7.7) Lymph # (Auto) 1.0 10^3/uL 10^3/ uL (0.8-4.8) Pender # (Auto) 0.5 10^3/uL 10^3/ uL (0.2-0.9) Eos # (Auto) 0.3 10^3/uL 10^3/ uL (0.0-0.8) Baso # (Auto) 0.0 10^3/uL 10^3/ uL (0.0-0.1) Nucleated RBC % (a uto) 0 % % Nucleated RBCs # 0.0 /100WBC /100W BC PT 13.40 SECONDS SEC ONDS (12.1-14.9) INR 0.99 (0.8-1.2) APTT 29.3 SECONDS SECO NDS (23.9-36.7) Sodium 137 mmol/L mmol/L (136-145) Potassium 4.6 mmol/L mmol/L (3.5-5.1) Chloride 101 mmol/L mmol/L (98-107) Carbon Dioxide 24 mmol/L mmol/L (22-29) Anion Gap 16.6 (5-19) BUN 39 mg/dL H mg/dL (8-23) Creatinine 1.5 mg/dL H mg/dL (0.7-1.2) GFR Calculation Not Reportable Glucose 150 mg/dL H mg/dL (65-115) Calculated Osmolal ity 296 mOsm/kg H mOs m/kg (285-295) Calcium 9.0 mg/dL mg/dL (8.5-10.5) Total Bilirubin 0.4 mg/dL mg/dL (0.15-1.2) AST 13 U/L U/L (0-40) ALT 14 U/L U/L (0-41) Alkaline Phosphata se 131 IU/L H IU/L (40-130) Troponin T Baselin e Troponin T 120 Min [place] Delta Troponin T NT-Pro-B Natriuret Pep 3143 pg/mL H pg/m L (0-450) Total Protein 6.3 g/dL L g/dL (6.6-8.7) Albumin 3.8 g/dL g/dL (3.5-5.2) Globulin 2.5 g/dL g/dL (1.3-4.6) 07/04/21 07/04/21 17:20 19:23 WBC RBC Hgb Hct MCV MCH MCHC RDW Plt Count MPV Neut % (Auto) Lymph % (Auto) Pender % (Auto) Eos % (Auto) Baso % (Auto) Neut # (Auto) Lymph # (Auto) Pender # (Auto) Eos # (Auto) Baso # (Auto) Nucleated RBC % (a uto) Nucleated RBCs # PT INR APTT Sodium Potassium Chloride Carbon Dioxide Anion Gap BUN Creatinine GFR Calculation Glucose Calculated Osmolal ity Calcium Total Bilirubin AST ALT Alkaline Phosphata se Troponin T Baselin e 45 ng/L H ng/L (0-15) Troponin T 120 Min [place] 57.13 ng/L H ng/L (0-15) Delta Troponin T 12.13 ABS# H* ABS # (0-10) NT-Pro-B Natriuret Pep Total Protein Albumin Globulin EKG Data^: EKG 1: Computer generated interpretation: Chest X-Ray 07/04/21 17:13 IMPRESSION: Stable exam, no acute findings. Radiation Dose CTDIVOL = (mGy): DLP = (mGy-cm) Head CT 07/04/21 17:13 IMPRESSION: No acute traumatic intracranial abnormality. Radiation Dose CTDIVOL = (mGy): DLP = 982.07 (mGy-cm) EKG 2: Computer generated interpretation: Chest X-Ray 07/04/21 17:13 IMPRESSION: Stable exam, no acute findings. Radiation Dose CTDIVOL = (mGy): DLP = (mGy-cm) Head CT 07/04/21 17:13
[2021-07-04 17:36] LABS: Basophils % 0.5 %; Eosinophils # 0.3 10^3/uL (0.0-0.8); Eosinophils % 5.1 %; Hematocrit 43.5 % (42.0-52.0); Hemoglobin 14.5 g/dL (11.7-16.6); Lymphocytes % 16.3 %; Mean Corpuscular HGB Conc 33.3 g/dL (30.0-36.0); Mean Corpuscular Hemoglobin 30.1 pg (28.0-34.0); Mean Corpuscular Volume 90.2 fl (80-94); Mean Platelet Volume 9.9 fL (7.4-10.4); Monocytes # 0.5 10^3/uL (0.2-0.9); Monocytes % 8.3 %; Neutrophils # 4.34 10^3/uL (1.8-7.7); Neutrophils % 69.5 %; Nucleated Red Blood Cells % 0 %; Platelet Count 249 10^3/cmm (130-400); Red Blood Count 4.82 10^6/uL (4.1-5.3); Red Cell Distribution Width 12.6 % (12.1-15.1); White Blood Count 6.3 10^3/uL (4.0-10.0)
[2021-07-04 17:48] LABS: INR 0.99 (0.8-1.2)
[2021-07-04 17:49] LABS: Partial Thromboplastin Time 29.3 SECONDS (23.9-36.7)
[2021-07-04] MEDS: sodium chloride 0.9% 500 ML IV (17:50)
[2021-07-04 17:56] LABS: Troponin(5th) Baseline 45 ng/L (0-15)
[2021-07-04 18:05] LABS: Alanine Aminotransferase 14 U/L (0-41); Albumin Level 3.8 g/dL (3.5-5.2); Alkaline Phosphatase 131 IU/L (40-130); Anion Gap 16.6 (5-19); Aspartate Amino Transferase 13 U/L (0-40); Blood Urea Nitrogen 39 mg/dL (8-23); Carbon Dioxide 24 mmol/L (22-29); Chloride 101 mmol/L (98-107); Globulin 2.5 g/dL (1.3-4.6); Glucose 150 mg/dL (65-115); NT Pro B Type Natriuretic Pept 3143 pg/mL (0-450); Osmolality Calculated 296 mOsm/kg (285-295); Potassium 4.6 mmol/L (3.5-5.1); Sodium 137 mmol/L (136-145); Total Bilirubin 0.4 mg/dL (0.15-1.2); Total Protein 6.3 g/dL (6.6-8.7)
--- NOTE | 2021-07-04 19:13 | ECG_ITS ---
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 Measurements Intervals [place] Rate: 110 P: MD: QRS: 16 QRSD: 90 T: 67 QT: 325 QTc: 441 Interpretive Statements ATRIAL FIBRILLATION WITH RAPID VENTRICULAR RESPONSE MINIMAL ST DEPRESSION [0.025+ mV ST DEPRESSION] ABNORMAL RHYTHM ECG Compared to ECG 07/04/2021 17:58:02 No significant changes Electronically Signed On 07-04-2021 20:16:04 CDT by Sarah Maier M.D. [id number]
[2021-07-04 20:12] LABS: Troponin 5 2HR 57.13 ng/L (0-15)
[2021-07-04 20:13] LABS: Troponin 5 2HR Delta 12.13 ABS# (0-10)
[2021-07-04] MEDS: enoxaparin 80 mg/0.8 mL Syringe SUBCUT (20:30)
--- NOTE | 2021-07-04 23:13 | ECG_ITS ---
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 Measurements Intervals [place] Rate: 126 P: 180 ND: 168 QRS: 5 QRSD: 94 T: 65 QT: 319 QTc: 463 Interpretive Statements ATRIAL FIBRILLATION WITH RVR MODERATE ST DEPRESSION [0.05+ mV ST DEPRESSION] WARNING: DATA QUALITY MAY AFFECT INTERPRETATION Compared to ECG 07/04/2021 17:58:02 Atrial fibrillation no longer present ST (T wave) deviation still present Electronically Signed On 07-06-2021 5:57:53 CDT by Precious Steel M.D. [id number]
[2021-07-04 23:46] LABS: Troponin 5 6HR 148.3 ng/L (0-15); Troponin 5 6HR Delta 103.3 ng/L (0-12)
[2021-07-05] VITALS (60 sets, daily range): BP systolic 102–182; BP diastolic 62–110; PULSE 94–121; RESP 10–37; TEMP 36.1–37.1; O2SAT 71–100
--- NOTE | 2021-07-05 00:08 | USCV_ITS ---
Neha Pruett Age: 86 Gender: M : 1935 Exam Date: 07/05/2021 06:53 Ordering Phys: Damien Núñez MD Technologist: Magy Swanson Exam Location: [facility] [place] Indication: A FIB/FALL BP: 145 / 84 HR: 97 Rhythm: Atrial fibrillation Technical Quality: Adequate MEASUREMENTS (Male / Female) Normal Values 2D ECHO LV Diastolic Diameter PLAX 3.8 cm 4.2 - 5.9 / 3.9 - 5.3 cm LV Systolic Diameter PLAX 2.6 cm IVS Diastolic Thickness 1.2 cm 0.6 - 1.0 / 0.6 - 0.9 cm IVS Systolic Thickness 2.1 cm LVPW Diastolic Thickness 1.6 cm 0.6 - 1.0 / 0.6 - 0.9 cm LVPW Systolic Thickness 2.2 cm LVOT Diameter 2.0 cm LV Ejection Fraction 2D Teich 59.7 % LV Ejection Fraction MOD 2C 60.6 % LV Ejection Fraction 2C AL 61.6 % LA Diameter 3.8 cm LA Width 3.0 cm LA Height 4.4 cm RA Width 3.3 cm RA Height 3.9 cm Aorta at Sinotubular Diameter 2.4 cm M-MODE Aortic Annulus Diameter 3.4 cm LA Ao Ratio MM 0.8 DOPPLER AV Peak Velocity 88.0 cm/s LVOT Peak Velocity 86.0 cm/s AV Area Cont Eq vti 2.8 cm squared AV Area Cont Eq pk 3.1 cm squared MV Area PHT 3.1 cm squared MV E' Velocity 76.5 cm/s Mitral E to MV E' Ratio 7.7 Mitral E to LV E' Lateral Ratio 6.4 Mitral E to LV E' Septal Ratio 9.8 TR Peak Velocity 156.5 cm/s TR Peak Gradient 9.8 mmHg TR Mean Velocity 163.3 cm/s TR Mean Gradient 11.2 mmHg TR Velocity Time Integral 52.4 cm FINDINGS Left Ventricle Normal left ventricular size. LV systolic function is normal with EF of 55-60%. No regional wall motion abnormalities. Diastolic function is indeterminate because of atrial fibrillation Right Ventricle The right ventricle is normal in size and function. Right Atrium The right atrium is normal in size. Left Atrium The left atrium is mildly dilated Mitral Valve Mitral annular calcification seen without significant stenosis or prolapse. There is no mitral regurgitation. Aortic Valve Structurally normal aortic valve without significant sclerosis or stenosis. There is no aortic regurgitation. Tricuspid Valve Structurally normal tricuspid valve without significant stenosis or regurgitation. Insufficient TR jet to calculate RVSP Pulmonic Valve Structurally normal pulmonic valve without significant stenosis. There is no pulmonic regurgitation. Pericardium Normal pericardium without effusion. Aorta Normal ascending aorta dimension. CONCLUSIONS This is a technically limited quality echocardiogram because of poor ultrasonic windows. LV systolic function is normal with EF 55 to 60%. Diastolic function is indeterminate because of atrial fibrillation. No significant valvular heart disease is noted. Compared to prior echocardiogram from 08/30/2016, no significant changes are noted Rod Hitchcock MD (Electronically Signed) Final Date: 05 July 2021 17:32 S
--- NOTE | 2021-07-05 00:21 | PM.HP ---
Providers/Chief Complaint Admitting Physician: Damien Núñez Primary Care Provider: Federico Hinton MD Chief Complaint: ALTERED LOC, BLURRED VISION History of Present Illness 84-year-old with a past medical history significant for carotid artery stenosis status post right endarterectomy, malignant neoplasm of bladder in remission, diabetes mellitus, hypertension, dementia, chronic obstructive pulmonary disease, obstructive sleep apnea and chronic stage 3 kidney disease who presented to the hospital with fall at half-way. Patient was ended baseline confusion at the time of my evaluation and not able to provide any history. This was obtained from review of medical records and discussion with the ER staff. Apparently had fallen in the bathroom and sustained head trauma during the fall. Reportedly was complaining of blurred vision afterwards. No notable complaint of chest discomfort or shortness of breath. No notation of recent fever, chills, nausea vomiting. Upon arrival to emergency room patient's initial laboratory workup showed WBC of 6.3, hemoglobin of 14.5, hematocrit of 43.5 and platelet count 249 INR 0.99. Sodium 137, potassium 4.6, chloride 101, bicarb 24, BUN 39 and creatinine of 1.5. Prior creatinine in 05/28/2021 was 1.3 initial troponin of 45 at baseline with a repeat increased to 57.1 and a final 6 hour at 148.3. ProBNP of 3143. Imaging studies included a chest x-ray which did not show any evidence of acute cardiopulmonary abnormality. Head CT without contrast also did not show any evidence of acute traumatic intracranial abnormality. Patient was found to have atrial fibrillation with rapid ventricular response. He was started on Cardizem drip. Addition was given Lovenox 80 mg subcu x1 and 500cc bolus of NS. Review of Systems General: Reports: ROS unobtainable due to medical condition and ROS unobtainable due to mental status Medications/Allergies Home Medications Medication Instructions Recorded Confirmed Last Taken Type glipizide 2.5 mg tablet, extended 2.5 mg PO DAILY@0800 tab 09/24/19 07/05/21 07/04/21 06:42 History release 24 hr clopidogrel 75 mg tablet 75 mg PO DAILY@0800 11/25/19 07/05/21 07/04/21 06:42 History ezetimibe 10 mg PO DAILY@0800 12/02/19 07/05/21 07/03/21 20:00 History amlodipine 10 mg tablet 10 mg PO DAILY@0800 01/26/20 07/05/21 07/04/21 06:42 History artifi.tears(hypromellose)(PF) 0.3 1 drp OPHTHALMIC (EYE) DAILY@199908/01/20 07/05/21 11/28/20 History % eye drops PRN meclizine 25 mg tablet 25 mg PO QID PRN tab 08/01/20 07/05/21 Unknown History metoprolol tartrate 50 mg tablet 50 mg PO BID@0800,1600 08/01/20 07/05/21 07/04/21 06:42 History peg 400-propylene glycol 0.4 %-0.3 1 - 2 drp OPHTHALMIC (EYE) 08/01/20 07/05/21 05/27/21 14:49 History % eye drops DAILY@1999 PRN vitamins A,C,S-lswu-caohic 14,320 1 cap PO BID@0800,159908/01/20 07/05/21 07/04/21 06:42 History unit-226 mg-200 unit capsule cetirizine 10 mg PO DAILY@0811/29/20 07/05/21 07/04/21 06:42 History losartan 25 mg PO DAILY@79911/29/20 07/05/21 07/04/21 08:27 History tamsulosin 0.4 mg PO BEDTIME@199911/29/20 07/05/21 07/03/21 20:00 History Vitamin D Ointment See Rx Instructions .ROUTE 02/10/21 07/05/21 07/04/21 06:42 History .COMPLEX PRN acetaminophen 500 mg PO Q6H PRN 02/10/21 07/05/21 Unknown History fluoxetine 40 mg PO DAILY@0800 02/10/21 07/05/21 07/04/21 08:27 History ibuprofen 400 mg PO Q6H PRN 02/10/21 07/05/21 Unknown History latanoprost 1 drp OPHTHALMIC (EYE) DAILY@159902/10/21 07/05/21 07/03/21 20:00 History methylphenidate HCl 20 mg PO DAILY@0800 02/10/21 07/05/21 07/04/21 08:27 History camphor-menthol [Sarna Original] 1 applic TOPICAL BID@08,16 02/20/21 07/05/21 07/04/21 06:42 History difluprednate [Durezol] 1 drp OPHTHALMIC (EYE) BID 02/20/21 07/05/21 07/04/21 06:42 History bisacodyl [Dulcolax (bisacodyl)] 10 mg LA DAILY PRN 07/05/21 07/05/21 Unknown History mineral oil-isopropyl myristat 1 applic TOPICAL BID PRN 07/05/21 07/05/21 Unknown History [Eucerin] Allergies Allergy/AdvReac Type Severity Reaction Status Date / Time No Known Allergies Allergy Verified 08/01/20 13:21 PFSH Acute PFSH: Medical History Attention deficit disorder Carotid stenosis Cataract COPD (chronic obstructive pulmonary disease) CVA (cerebrovascular accident) cva 3 weeks ago Diabetes 1.5, managed as type 2 Gout Hypertension Malignant neoplasm of lateral wall of bladder Sleep apnea Surgical History H/O hemorrhoidectomy H/O vasectomy History of penile implant Requires deflation before catheter placement History of total right knee replacement Status post carotid surgery Family History Father , at age 59-pneumonia Arthritis Mother , at age 89 Dementia Social History Smoking and tobacco status: former smoker Alcohol intake: never Lives independently: No Household members: spouse Marital status: Current occupational status: retired History of recent travel: No Vitals/I&O/Wt Last Vital Signs Temp 97.0 F L 07/05/21 00:00 Pulse 96 07/05/21 00:00 Resp 20 H 07/05/21 00:00 BP 157/91 07/05/21 00:00 Pulse Ox 94 07/05/21 00:00 07/04/21 07/04/21 07/05/21 14:59 22:59 06:59 Intake Total 500 / 500 Balance 500 / 500 Weight last 48 hrs Weight 88.451 kg Physical Exam Narrative: EXAM NARRATIVE: General-Alert awake and pleasantly confused in no apparent distress HEENT-grossly unremarkable to CVS-irregularly irregular rhythm Chest -nonlabored respiration Abdomen-soft nontender nondistended Extremities- 2+ bilateral lower extremity pitting edema Data : 07/04/21 17:20 07/04/21 17:20 A&P Assessment and plan (1) Atrial fibrillation with rapid ventricular response: On cardizem drip Titrate to keep HR < 100 Resume oral meds - Metoprolol 50 mg PO BID ECHO in am Consider cardiology consult Lovenox 90mg SQ BID Status: Acute (2) Non-ST elevation [place] (NSTEMI): Likely due to above Lovenox as noted above ECHO ordered Telemetry Plavix 75 mg PO daily Status: Acute (3) Acute on chronic kidney failure: Creatinine 1.3->1.5 Repeat BMP in am Holding losartan Monitor u/o Status: Acute (4) Hypertension: Norvasc 10 mg PO daily Metoprolol / cardizem as noted above. Status: Acute (5) Fall: Fall precautions CT head wo contrast - negative PT/OT consult Status: Acute (6) DVT prophylaxis: SCDS Lovenox as noted above. Status: Acute Attestations Medical Necessity Statement*: Anticipate over 2 midnight stay in hospital for eval and treatment Time Spent in Patient Care: Greater than 35 minutes (>than 50% of time spent in counselling and/or direct pt care on unit). Coding Level of Care Code Acute Wire Technician for [facility] Diagnoses Atrial fibrillation with rapid ventricular response I48.91 Non-ST elevation [place] (NSTEMI) I21.4 Acute on chronic kidney failure N17.9; N18.9 Hypertension I10 Fall W19.XXXA DVT prophylaxis Z29.9
--- NOTE | 2021-07-05 06:32 | PC.NURSE ---
Patient arrived to unit at approx 2300. Patient was awake, able to answer name, and birthday, but was confused to time, place and situation. Patient heart rate remained in the 90's with BP slightly hypertensive on Cardizem gtt. Patient able to use urinal with assistance, and rested well throughout rest of shift. Afebrile. Cardizem gtt titrated per protocol. No PRNs given. Will continue to monitor.
[2021-07-05] MEDS: tamsulosin 0.4 mg Capsule PO (07:51)
[2021-07-05] MEDS: enoxaparin 100 mg/mL Syringe 90 MG SUBCUT ×2 (07:51→20:43)
[2021-07-05] MEDS: fluoxetine 20 mg Capsule 40 MG PO (07:51)
[2021-07-05] MEDS: cetirizine 10 mg Tablet PO (07:52)
[2021-07-05] MEDS: clopidogrel 75 mg Tablet PO (07:52)
[2021-07-05] MEDS: metoprolol tartrate 50 mg Tablet PO ×2 (07:52→20:43)
[2021-07-05] MEDS: amlodipine 10 mg Tablet PO (07:52)
--- NOTE | 2021-07-05 08:51 | P.PN_ITS ---
Subjective Subjective: Interval history: Patient was seen and examined this morning, he is complaining of acutely worsening shortness of breath in the last couple of days, denies any chest pain. Heart rate is better controlled this morning. Vitals/I&O/Wt Last Vital Signs Temp 98.4 F 07/05/21 04:00 Pulse 97 07/05/21 05:45 Resp 10 L 07/05/21 05:45 BP 145/70 07/05/21 05:45 Pulse Ox 97 07/05/21 05:45 07/04/21 07/05/21 07/05/21 22:59 06:59 14:59 Intake Total 500 / 500 16.75 / 516.75 76 / 76 Output Total 850 / 850 Balance 500 / 500 -833.25 / -333.25 76 / 76 Weight last 48 hrs Weight 88.451 kg Weight 88.451 kg Physical Exam Const: COMMON NORMALS: patient oriented x3 HENMT: COMMON NORMALS: normocephalic and atraumatic HEAD & SCALP: normocephalic and atraumatic Resp: COMMON NORMALS: clear to auscultation bilaterally EFFORT & INSPECTION: Yes symmetric chest movement AUSCULTATION: clear to auscultation bilaterally Cardio: OTHER: S1-S2 variable intensity , irregularly irregular rhythm GI: COMMON NORMALS: Normal to inspection, nondistended, normoactive bowel sounds present, Soft to palpation, non-tender, No hepatosplenomegaly present and no masses AUSCULTATION: Yes normoactive bowel sounds PALPATION: Yes Soft to palpation and Yes No hepatosplenomegaly present RECTAL EXAM: Yes deferred Extremity: COMMON NORMALS: no clubbing, cyanosis or edema and no pedal edema Neuro: COMMON NORMALS: patient oriented x3 Data : 07/04/21 17:20 07/04/21 17:20 A&P Assessment and plan (1) Atrial fibrillation with rapid ventricular response: Initially patient was on Cardizem drip, which has been discontinued. Metoprolol 50 mg PO BID ECHO: Consider cardiology consult Lovenox 90mg SQ BID Status: Acute (2) Non-ST elevation [place] (NSTEMI): Elevated troponin likely NSTEMI type II: Secondary demand ischemia secondary to A. fib with RVR. Cannot conclusively rule out underlying coronary artery disease. Follow 2D echo Aspirin 81 mg p.o.daily Plavix 75 mg PO daily Status: Acute (3) Acute on chronic kidney failure: Creatinine 1.3->1.5 Repeat BMP in am Holding losartan Monitor u/o Status: Acute (4) Hypertension: Norvasc 10 mg PO daily Metoprolol / cardizem as noted above. Status: Acute (5) Fall: Fall precautions CT head wo contrast - negative PT/OT consult Status: Acute (6) DVT prophylaxis: SCDS Lovenox as noted above. Status: Acute Attestations Medical Necessity Statement*: A. fib with RVR, elevated troponin. Coding Level of Care Code Acute Salesperson [employer] for [employer] Fwd Exam Detailed Diagnoses Atrial fibrillation with rapid ventricular response I48.91 Non-ST elevation [place] (NSTEMI) I21.4 Acute on chronic kidney failure N17.9; N18.9 Hypertension I10 Fall W19.XXXA DVT prophylaxis Z29.9
--- NOTE | 2021-07-05 09:11 | PC.CHAP ---
Pastoral Care Encounter/Spiritual Assessment Type of Contact [] Declined seafood and service meat manager visit [] Patient/Family/Request visit [] Outpatient visit [] Follow-up visit [] Physician referral [] Code/Alert [x] Routine visit [] Staff referral [] Actively dying [] Patient sleeping [] Family support [] [] Out of room [] Palliative care [] [x] Receiving care in room [] Pre-surgical visit [] Trauma [] Long length of stay [x] ICU visit [x] Other: met max in CS.. Relational/Emotional Strength [] Patient feels connected with others/family/visitors/staff [] Distress [] Loneliness/isolation [] Abandonment Spirituality of Patient [] Person of Tanya [] Attends Tenriism of their Tanya [] Believes in Prayer [] Reads Bible or Jain materials [] There are Spiritual issues to be addressed Textile Machinery Sales Representative Interventions [x] Prayer [] Active listening [] Non-anxious presence [] Spiritual/emotional support [] Crisis/trauma care [] Spiritual counseling [] Bereavement support [] Provided bereavement packet [] Provided Bible/devotional materials [] Provided toy/stuffed animal, coloring book to patient or family member [] Provided Communion [] Anointing/[place] [] Salvation [x] Completed spiritual assessment [] Other: Impact on Illness or Injury [] Angry [] Fearful [] Anxious [] Often cries [] Exhaustion [] Unable to work [] Unable to attend hoahaoism [] Unable to walk/stand [] Unable to read [] Unable to drive [] Unable to eat/drink [] Unable to sleep [] Unable to be with family [] Patient intubated [] Other: Summary Time spent with patient
--- NOTE | 2021-07-05 10:29 | CT_ITS ---
WS: [id number] CT abdomen pelvis wo con [id number] REASON FOR EXAM: abd pain IV CONTRAST ADMINISTERED: None. TOTAL EXAM DLP: 1955.[address] scans at [facility] use at least one of these dose optimization techniques: automat ed exposure control; mA and/or kV adjustment per patient size (includes targeted exams where dose is matched to clinical indication); or iterative reconstruction. FINDINGS: ABDOMEN: Unenhanced liver, spleen, and pancreas are unremarkable. Cholelithiasis. Multiple parapelvic and cortical renal cysts bilaterally. No adenopathy or mass. No focal fluid collection or free fluid. Extremely redundant/mobile colon with the cecum interposed between the liver and the upper anterior a bdominal wall. PELVIS: No mass, adenopathy, focal fluid, or free fluid. Penile prosthesis pump. CT/CT abdomen pelvis wo con [id number] IMPRESSION: No acute abdominal or pelvic abnormality.
[2021-07-05] MEDS: acetaminophen 500 mg Tablet PO (16:06)
[2021-07-05] MEDS: insulin lispro 100 unit/1 mL SUBCUT (18:04)
[2021-07-05 20:35] LABS: Glucose Point of Care 106 mg/dL (70-110)
[2021-07-05] MEDS: ezetimibe 10 mg Tablet PO (20:43)
[2021-07-05] MEDS: latanoprost 0.005% Op Soln 2.5 mL Btl 1 DROP EYE-BOTH (20:43)
[2021-07-06] VITALS (13 sets, daily range): BP systolic 95–143; BP diastolic 58–96; PULSE 95–99; RESP 9–27; TEMP 36.6; O2SAT 90–100
[2021-07-06 04:57] LABS: Basophils % 0.6 %; Eosinophils # 0.4 10^3/uL (0.0-0.8); Eosinophils % 5.4 %; Hematocrit 41.2 % (42.0-52.0); Hemoglobin 13.4 g/dL (11.7-16.6); Lymphocytes # 1.1 10^3/uL (0.8-4.8); Lymphocytes % 16.1 %; Mean Corpuscular HGB Conc 32.5 g/dL (30.0-36.0); Mean Corpuscular Hemoglobin 28.9 pg (28.0-34.0); Mean Corpuscular Volume 88.8 fl (80-94); Mean Platelet Volume 9.6 fL (7.4-10.4); Monocytes # 0.7 10^3/uL (0.2-0.9); Monocytes % 10.4 %; Neutrophils # 4.39 10^3/uL (1.8-7.7); Nucleated Red Blood Cells % 0 %; Platelet Count 216 10^3/cmm (130-400); Red Blood Count 4.64 10^6/uL (4.1-5.3); Red Cell Distribution Width 12.4 % (12.1-15.1); White Blood Count 6.5 10^3/uL (4.0-10.0)
[2021-07-06 05:30] LABS: Alanine Aminotransferase 10 U/L (0-41); Albumin Level 3.3 g/dL (3.5-5.2); Alkaline Phosphatase 103 IU/L (40-130); Aspartate Amino Transferase 9 U/L (0-40); Blood Urea Nitrogen 34 mg/dL (8-23); Calcium 8.8 mg/dL (8.5-10.5); Carbon Dioxide 24 mmol/L (22-29); Chloride 104 mmol/L (98-107); Globulin 2.7 g/dL (1.3-4.6); Glucose 89 mg/dL (65-115); Magnesium 1.8 mg/dL (1.7-2.3); Osmolality Calculated 293 mOsm/kg (285-295); Sodium 138 mmol/L (136-145); Thyroid Stimulating Hormone 3.21 uIU/mL (0.27-4.20); Total Bilirubin 0.9 mg/dL (0.15-1.2)
--- NOTE | 2021-07-06 06:27 | PC.NURSE ---
Shift Summary: Patient had an episode of confusion where he pulled off his left arm IV, IV replaced on right forearm. Patient reoriented and reeducated on importance of lines. Patient slept well overnight. VSS. No signs of distress at this time
[2021-07-06 06:33] LABS: Procalcitonin 0.09 ng/mL (0-0.5)
[2021-07-06 08:08] LABS: Glucose Point of Care 115 mg/dL (70-110)
[2021-07-06] MEDS: aspirin 81 mg EC Tablet PO (08:51)
[2021-07-06] MEDS: fluoxetine 20 mg Capsule 40 MG PO (08:51)
[2021-07-06] MEDS: cetirizine 10 mg Tablet PO (08:51)
[2021-07-06] MEDS: amlodipine 10 mg Tablet PO (08:51)
[2021-07-06] MEDS: clopidogrel 75 mg Tablet PO (08:51)
[2021-07-06] MEDS: tamsulosin 0.4 mg Capsule PO (08:51)
[2021-07-06] MEDS: enoxaparin 100 mg/mL Syringe 90 MG SUBCUT ×2 (08:51→20:31)
[2021-07-06] MEDS: ezetimibe 10 mg Tablet PO (08:53)
[2021-07-06] MEDS: metoprolol tartrate 50 mg Tablet PO ×2 (08:53→20:31)
[2021-07-06] MEDS: acetaminophen 500 mg Tablet PO (10:24)
[2021-07-06] MEDS: insulin lispro 100 unit/1 mL SUBCUT ×2 (11:57→20:31)
[2021-07-06 12:01] LABS: Glucose Point of Care 225 mg/dL (70-110)
--- NOTE | 2021-07-06 14:59 | PC.RESP ---
PULMONARY REHAB INFORMATION SENT TO PATIENT.
--- NOTE | 2021-07-06 15:15 | PM.PN ---
Subjective Subjective: Interval history: Patient was seen and examined this morning, denies any chest pain shortness of breath.He is extremely concerned about his family dynamics. Overnight he also had Episodes of delirium.Which required reorientation. Heart rate is better controlled. Medications: Reviewed: Yes Vitals/I&O/Wt Last Vital Signs Temp 97.8 F 07/06/21 04:00 Pulse 97 07/06/21 12:00 Resp 25 H 07/06/21 12:00 BP 118/80 07/06/21 12:00 Pulse Ox 96 07/06/21 12:00 07/06/21 07/06/21 07/06/21 06:59 14:59 22:59 Intake Total 0 / 910.333 600 / 600 Output Total 250 / 775 Balance -250 / 135.333 600 / 600 Weight last 48 hrs Weight 87.09 kg Weight 88.451 kg Weight 88.451 kg Physical Exam Const: COMMON NORMALS: patient oriented x3 HENMT: COMMON NORMALS: normocephalic and atraumatic HEAD & SCALP: normocephalic and atraumatic Resp: COMMON NORMALS: clear to auscultation bilaterally EFFORT & INSPECTION: Yes symmetric chest movement AUSCULTATION: clear to auscultation bilaterally Cardio: OTHER: S1-S2 variable intensity , irregularly irregular rhythm GI: COMMON NORMALS: Normal to inspection, nondistended, normoactive bowel sounds present, Soft to palpation, non-tender, No hepatosplenomegaly present and no masses AUSCULTATION: Yes normoactive bowel sounds PALPATION: Yes Soft to palpation and Yes No hepatosplenomegaly present RECTAL EXAM: Yes deferred Extremity: COMMON NORMALS: no clubbing, cyanosis or edema and no pedal edema Neuro: COMMON NORMALS: patient oriented x3 Data : 07/06/21 04:31 07/06/21 04:31 A&P Assessment and plan (1) Atrial fibrillation with rapid ventricular response: ECHO: Normal LV systolic function, normal LVEF of 55 to 60%, no RWMA noted , no gross valvular abnormality. Technically echo is of poor quality. TSH:Normal Initially patient was on Cardizem drip, which has been discontinued. Metoprolol 50 mg PO BID Lovenox 90mg SQ BID Continue telemetry Status: Acute (2) Non-ST elevation [place] (NSTEMI): Elevated troponin likely NSTEMI type II: Secondary demand ischemia secondary to A. fib with RVR. Cannot conclusively rule out underlying coronary artery disease. Follow 2D echo Aspirin 81 mg p.o.daily Plavix 75 mg PO daily Status: Acute (3) Acute on chronic kidney failure: CKD stage III Baseline serum creatinine 1.3->1.5 Monitor BMP Holding losartan Monitor u/o Status: Acute (4) Hypertension: Norvasc 10 mg PO daily Metoprolol / cardizem as noted above. Status: Acute (5) Fall: Fall precautions CT head wo contrast - negative PT/OT consult Status: Acute (6) DVT prophylaxis: SCDS Lovenox as noted above. Status: Acute Attestations Medical Necessity Statement*: Patient needs to be in hospital for management of A. fib with RVR, elevated troponin. Coding Level of Care Code Acute Corporate Fitness Program Coordinator for [facility]osea Delgado Diagnoses Atrial fibrillation with rapid ventricular response I48.91 Non-ST elevation [place] (NSTEMI) I21.4 Acute on chronic kidney failure N17.9; N18.9 Hypertension I10 Fall W19.XXXA DVT prophylaxis Z29.9
--- NOTE | 2021-07-06 15:17 | ECG_ITS ---
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 Measurements Intervals Odem Rate: 98 P: 60 TN: 228 QRS: 10 QRSD: 166 T: 61 QT: 470 QTc: 602 Interpretive Statements SINUS RHYTHM WITH FIRST DEGREE AV BLOCK WITH OCCASIONAL VENTRICULAR PREMATURE COMPLEXES INTRAVENTRICULAR CONDUCTION DELAY [130+ ms QRS DURATION] Compared to ECG 07/04/2021 19:18:33 Ventricular premature complex(es) now present First degree AV block now present Intraventricular conduction delay now present Atrial fibrillation no longer present ST (T wave) deviation no longer present Electronically Signed On 07-06-2021 18:39:48 CDT by Rod Hitchcock M.D. [email or web address]
--- NOTE | 2021-07-06 15:59 | PC.NURSE ---
received into room 111-2 from icu at 11:00.report received.pt alert and oriented x 3 at present.oriented to room environment.bed alarm set.instructed to contact staff for any concerns or needs.pt verb understanding of instructions
[2021-07-06 16:59] LABS: Glucose Point of Care 140 mg/dL (70-110)
[2021-07-06] MEDS: sodium chloride 0.9% 1,000 ML 75 ML IV (18:26)
--- NOTE | 2021-07-06 19:54 | PC.NURSE ---
Shift Note Frequent safety and comfort rounds continue. Orders and/or nursing care completed as indicated. Patient monitored for response to intervention and treatment(s). Education provided includes[instructing pt in medications and to not get up out of bed by himself]. Patient and/or sales representative business courses verb understanding at present]. we attempted to get pt up to bsc for bm..but when he sat up,he became extemely dizzy and fell back onto bed.bp 93/49.dr winchester notified and he ordered ns at 75cc.Will continue to monitor.
[2021-07-06 20:17] LABS: Glucose Point of Care 229 mg/dL (70-110)
[2021-07-06] MEDS: latanoprost 0.005% Op Soln 2.5 mL Btl 1 DROP EYE-BOTH (20:40)
--- NOTE | 2021-07-06 23:46 | PC.NURSE ---
Patient is currently oriented to person. Bed alarm is set. Per report, patient is confused on and off.
[2021-07-07] VITALS (25 sets, daily range): BP systolic 76–146; BP diastolic 53–91; PULSE 82–170; RESP 8–35; TEMP 36.6–36.8; O2SAT 96–98
--- NOTE | 2021-07-07 02:56 | PC.NURSE ---
Shift Note Frequent safety and comfort rounds continue. Orders and/or nursing care completed as indicated. Patient monitored for response to intervention and treatment(s). Education provided includes fall risk and prevention. Patient and/or sales representative groceries verbalized understanding, but needs reinforcement. Will continue to monitor.
[2021-07-07 06:07] LABS: Glucose Urine UA Norm (Normal); Ketones Urine Negative (Negative); Protein Urine 1+ (Negative); Specific Gravity, Urine 1.015 (1.005-1.030); Urine Appearance SL Hazy (CLEAR); Urine Color Yellow (Yellow); pH Urine 5 (5-7)
[2021-07-07 06:08] LABS: Add Urine Microscopic? YES; Bilirubin Urine Neg (Negative); Blood Urine 2+ (Negative); Leukocyte Esterase Urine 1+ (Negative); Nitrate Urine Negative (Negative); Urobilinogen Urine Norm (Negative)
[2021-07-07 06:09] LABS: WBC Urine >100 /hpf (0-5)
[2021-07-07 06:10] LABS: Add Urine Culture? Yes; Bacteria Urine 4+ /hpf; Squamous Epithelial Cell Urine 0-4 /hpf (0-5)
[2021-07-07 06:36] LABS: Glucose Point of Care 98 mg/dL (70-110)
[2021-07-07 06:38] LABS: Basophils # 0.1 10^3/uL (0.0-0.1); Basophils % 0.8 %; Eosinophils # 0.4 10^3/uL (0.0-0.8); Eosinophils % 5.4 %; Hematocrit 39.5 % (42.0-52.0); Hemoglobin 13.1 g/dL (11.7-16.6); Lymphocytes # 0.9 10^3/uL (0.8-4.8); Lymphocytes % 14.2 %; Mean Corpuscular HGB Conc 33.2 g/dL (30.0-36.0); Mean Corpuscular Volume 90.4 fl (80-94); Mean Platelet Volume 9.5 fL (7.4-10.4); Monocytes # 0.6 10^3/uL (0.2-0.9); Monocytes % 9.6 %; Neutrophils # 4.52 10^3/uL (1.8-7.7); Neutrophils % 69.7 %; Nucleated Red Blood Cells % 0 %; Platelet Count 209 10^3/cmm (130-400); Red Blood Count 4.37 10^6/uL (4.1-5.3); Red Cell Distribution Width 12.4 % (12.1-15.1); White Blood Count 6.5 10^3/uL (4.0-10.0)
[2021-07-07 07:45] LABS: Alanine Aminotransferase 10 U/L (0-41); Alkaline Phosphatase 95 IU/L (40-130); Anion Gap 15.8 (5-19); Aspartate Amino Transferase 8 U/L (0-40); Blood Urea Nitrogen 40 mg/dL (8-23); Calcium 8.6 mg/dL (8.5-10.5); Carbon Dioxide 21 mmol/L (22-29); Chloride 106 mmol/L (98-107); Cortisol Random 7.63 ug/dL (2.47-19.5); Globulin 2.6 g/dL (1.3-4.6); Glucose 81 mg/dL (65-115); Magnesium 1.6 mg/dL (1.7-2.3); Osmolality Calculated 297 mOsm/kg (285-295); Potassium 3.8 mmol/L (3.5-5.1); Sodium 139 mmol/L (136-145); Total Bilirubin 0.6 mg/dL (0.15-1.2); Total Protein 5.6 g/dL (6.6-8.7)
[2021-07-07] MEDS: enoxaparin 100 mg/mL Syringe 90 MG SUBCUT (08:33)
[2021-07-07] MEDS: sodium chloride 0.9% 1,000 ML 75 ML IV (08:33)
[2021-07-07] MEDS: fluoxetine 20 mg Capsule 40 MG PO (08:36)
[2021-07-07] MEDS: aspirin 81 mg EC Tablet PO (08:36)
[2021-07-07] MEDS: metoprolol tartrate 50 mg Tablet PO ×2 (08:37→21:19)
[2021-07-07] MEDS: ezetimibe 10 mg Tablet PO (08:37)
[2021-07-07] MEDS: clopidogrel 75 mg Tablet PO (08:37)
[2021-07-07] MEDS: tamsulosin 0.4 mg Capsule PO (08:37)
[2021-07-07] MEDS: amlodipine 5 mg Tablet PO (08:37)
[2021-07-07] MEDS: cetirizine 10 mg Tablet PO (08:37)
[2021-07-07] MEDS: cefTRIAXone 1,000 MG in sodium chloride 0.9% (plus) 50 ML 100 MG IV (10:07)
--- NOTE | 2021-07-07 10:56 | PC.SOCIAL ---
Pg 2 IMM Explained to pt Pg 2 IMM. No questions voiced. Provided pt a copy. Initialed, dated, & timed a copy & placed in chart.
[2021-07-07 12:04] LABS: Glucose Point of Care 172 mg/dL (70-110)
[2021-07-07] MEDS: insulin lispro 100 unit/1 mL SUBCUT (12:48)
[2021-07-07] MEDS: acetaminophen 500 mg Tablet PO ×2 (14:33→21:19)
[2021-07-07] MEDS: meclizine 25 mg tablet PO ×2 (14:33→21:19)
--- NOTE | 2021-07-07 14:59 | PM.PN ---
Subjective Subjective: Interval history: Patient was seen and examined this morning, has significant dizziness when he tries to stand as well as significant orthostatic hypotension.His mood is also very low and he has been the same since admission. Medications: Reviewed: Yes Vitals/I&O/Wt Last Vital Signs Temp 98.2 F 07/07/21 03:04 Pulse 96 07/07/21 13:42 Resp 16 07/07/21 13:42 BP 142/91 07/07/21 13:42 Pulse Ox 96 07/07/21 03:04 07/06/21 07/07/21 07/07/21 22:59 06:59 14:59 Intake Total 240 / 840 200 / 1040 1168 / 1168 Output Total 375 / 375 575 / 950 800 / 800 Balance -135 / 465 -375 / 90 368 / 368 Weight last 48 hrs Weight 88.451 kg Weight 87.09 kg Physical Exam Const: COMMON NORMALS: patient oriented x3 HENMT: COMMON NORMALS: normocephalic and atraumatic HEAD & SCALP: normocephalic and atraumatic Resp: COMMON NORMALS: clear to auscultation bilaterally EFFORT & INSPECTION: Yes symmetric chest movement AUSCULTATION: clear to auscultation bilaterally Cardio: OTHER: S1-S2 variable intensity , irregularly irregular rhythm GI: COMMON NORMALS: Normal to inspection, nondistended, normoactive bowel sounds present, Soft to palpation, non-tender, No hepatosplenomegaly present and no masses AUSCULTATION: Yes normoactive bowel sounds PALPATION: Yes Soft to palpation and Yes No hepatosplenomegaly present RECTAL EXAM: Yes deferred Extremity: COMMON NORMALS: no clubbing, cyanosis or edema and no pedal edema Neuro: COMMON NORMALS: patient oriented x3 Data : 07/07/21 06:12 07/07/21 06:12 Micro: Microbiology 07/07/21 06:15 Blood Culture - Preliminary Blood SPECIMEN COLLECTED 07/07/21 06:12 Blood Culture - Preliminary Blood SPECIMEN COLLECTED A&P Assessment and plan (1) Atrial fibrillation with rapid ventricular response: ECHO: Normal LV systolic function, normal LVEF of 55 to 60%, no RWMA noted , no gross valvular abnormality. Technically echo is of poor quality. TSH:Normal Initially patient was on Cardizem drip, which has been discontinued. On Metoprolol 50 mg PO BID.H/R is well controlled. Initially on Lovenox 90mg SQ BID.Has been discontinued as the patient is at high risk for fall due to his h/o severe symptomatic chronic vertigo.It was discussed with family and it was mutually agreed not to continue Ac. Continue telemetry Status: Acute (2) Non-ST elevation [place] (NSTEMI): Elevated troponin likely NSTEMI type II: Secondary demand ischemia secondary to A. fib with RVR. Cannot conclusively rule out underlying coronary artery disease, given his risk factors.Though he has denied chest pain during hospital stay. 2D echo as above Aspirin 81 mg p.o.daily Plavix 75 mg PO daily. Family do not want any aggressive intervention. Medical management for now. Status: Acute (3) Acute on chronic kidney failure: CKD stage III Baseline serum creatinine 1.3->1.5 Monitor BMP Holding losartan Monitor u/o Status: Acute (4) Hypertension: Norvasc 10 mg PO daily Metoprolol. Status: Acute (5) UTI (urinary tract infection): Cef 1 gm q24h daily Follow urine culture. Status: Acute (6) Fall: Fall precautions CT head wo contrast - negative PT/OT consult Status: Acute (7) DVT prophylaxis: SCDS Lovenox as noted above. Status: Acute Additional A&P Information Chronic symptomatic vertigo: Meclizine 25 mg p.o. 3 times daily. Symptomatic O/H :Midodrine 5 mg po TID. Adequate volume replacement has been done. CODE STATUS:AND DVT prophylaxis: LOVENOX 40 subcu daily Attestations Medical Necessity Statement*: patient needs to be in hospital for the management of Symptomatic O/H as well as symptomatic vertigo. 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
[2021-07-07 17:17] LABS: Glucose Point of Care 121 mg/dL (70-110)
--- NOTE | 2021-07-07 18:19 | PC.NURSE ---
Pt refused his dinner tray and unable to tolerated orthostatic BP checks due to pain on his head on movement.
--- NOTE | 2021-07-07 19:00 | PC.NURSE ---
Shift note Pt has been pleasantly confused, had episodes of delirum, visual hallucinations. He has orthostatic hypotension and episode of short-lived HR increased to 170s with throbbing headache when getting up. Dr. Diaz (psychaitrist consult) was informed on pt's visual hallucination.
--- NOTE | 2021-07-07 19:36 | PC.NURSE ---
After bedside shift report Pt HR went int 170s to 180s on the monitor. BP-84/56. Informed Dr Bailey and order received to give one time of IVP 5 mg of metoprolol.
[2021-07-07] MEDS: metoprolol tartrate 1 mg/1 mL SDV 5 mL 5 MG IVP (19:45)
--- NOTE | 2021-07-07 19:55 | PC.NURSE ---
Shift report [address] that pt tried to do orthostatic BP checked this morning w/ PT in room for exercises, but he could not tolerate and finished the standing during orthostatic BP check. He tried to void using the urinal while sitting up. HR increased to 170s with symptoms of facial grimacing that he has a throbbing, achy pain on the back of his head down to his neck and upper shoulders. laid him back down flat w/ PT. HR down to upper 90s in about 5 mins or so. Pt voided sitting but he develops headache and dizziness. Notified Dr and received verbal order to insert carroll catheter.
[2021-07-07] MEDS: sodium chloride 0.9% 250 ML IV (21:07)
[2021-07-07] MEDS: latanoprost 0.005% Op Soln 2.5 mL Btl 1 DROP EYE-BOTH (21:19)
[2021-07-07 22:19] LABS: Glucose Point of Care 127 mg/dL (70-110)
[2021-07-08] VITALS (18 sets, daily range): BP systolic 89–154; BP diastolic 65–96; PULSE 94–124; RESP 12–32; TEMP 36.4–36.8; O2SAT 94–100
[2021-07-08 05:13] LABS: Basophils % 0.6 %; Eosinophils # 0.3 10^3/uL (0.0-0.8); Eosinophils % 4.8 %; Hematocrit 37.5 % (42.0-52.0); Hemoglobin 12.2 g/dL (11.7-16.6); Lymphocytes # 0.8 10^3/uL (0.8-4.8); Lymphocytes % 10.7 %; Mean Corpuscular HGB Conc 32.5 g/dL (30.0-36.0); Mean Corpuscular Hemoglobin 29.2 pg (28.0-34.0); Mean Corpuscular Volume 89.7 fl (80-94); Mean Platelet Volume 9.8 fL (7.4-10.4); Monocytes # 0.8 10^3/uL (0.2-0.9); Monocytes % 11.4 %; Neutrophils # 5.12 10^3/uL (1.8-7.7); Neutrophils % 72.1 %; Nucleated Red Blood Cells % 0 %; Platelet Count 217 10^3/cmm (130-400); Red Blood Count 4.18 10^6/uL (4.1-5.3); Red Cell Distribution Width 12.3 % (12.1-15.1); White Blood Count 7.1 10^3/uL (4.0-10.0)
[2021-07-08 05:34] LABS: Alanine Aminotransferase 17 U/L (0-41); Albumin Level 3.1 g/dL (3.5-5.2); Alkaline Phosphatase 93 IU/L (40-130); Anion Gap 13.7 (5-19); Aspartate Amino Transferase 14 U/L (0-40); Blood Urea Nitrogen 39 mg/dL (8-23); Calcium 8.8 mg/dL (8.5-10.5); Carbon Dioxide 23 mmol/L (22-29); Chloride 105 mmol/L (98-107); Globulin 2.6 g/dL (1.3-4.6); Glucose 128 mg/dL (65-115); Magnesium 1.7 mg/dL (1.7-2.3); Osmolality Calculated 297 mOsm/kg (285-295); Potassium 3.7 mmol/L (3.5-5.1); Sodium 138 mmol/L (136-145); Total Bilirubin 0.5 mg/dL (0.15-1.2); Total Protein 5.7 g/dL (6.6-8.7)
--- NOTE | 2021-07-08 05:53 | P.CONIM_ITS ---
Providers/Reason for Consult Consulting Physican/Specialty*: Vinod knight MD. Psychiatry. Reason for Consult*: Depression. Attending Physician: Gaurav Bailey MD Primary Care Provider: Federico Hinton MD Psych Consult HPI History of Present Illness Neha Pruett is a 86 year old male who presented to the emergency department is admitted to the [facility] with the following report: 84-year-old with a past medical history significant for carotid artery stenosis status post right endarterectomy, malignant neoplasm of bladder in remission, diabetes mellitus, hypertension, dementia, chronic obstructive pulmonary disease, obstructive sleep apnea and chronic stage 3 kidney disease who prese nted to the hospital with fall at residential. Patient was ended baseline confusion at the time of my evaluation and not able to provide any history. This was obtained from review of medical records and discussion with the ER staff. Apparently had fallen in the bathroom and sustained head trauma during the fall. Reportedly was complaining of blurred vision afterwards. No notable complaint of chest discomfort or shortness of breath. No notation of recent fever, chills, nausea vomiting. Upon arrival to emergency room patient's initial laboratory workup showed WBC of 6.3, hemoglobin of 14.5, hematocrit of 43.5 and platelet count 249 INR 0.99. Sodium 137, potassium 4.6, chloride 101, bicarb 24, BUN 39 and creatinine of 1.5. Prior creatinine in 05/28/2021 was 1.3 initial troponin of 45 at baseline with a repeat increased to 57.1 and a final 6 hour at 148.3. ProBNP of 3143. Imaging studies included a chest x-ray which did not show any evidence of acute cardiopulmonary abnormality. Head CT without contrast also did not show any evidence of acute traumatic intracranial abnormality. Patient was found to have atrial fibrillation with rapid ventricular response. He was started on Cardizem drip. Addition was given Lovenox 80 mg subcu x1 and 500cc bolus of NS. Psychiatric consult: A psychiatric consult was requested to address concerns from the family that he was having depression. He presents today reporting that he is not really sure why he was here, but he came to the hospital after he fell at home and was clear about the places where he felt he hit his head. Otherwise, he reports that it has been a rough time recently in his life. He reports that his is in a residential, and she is ?losing her mind.? He seemed to be somewhat saddened by that fact and then made a comment about him losing his own mind. He reports that his memory has not been great, and he did struggle with orientation. He could not tell me what year, month, day it was. He was able to say that he was in [place], and he could identify who he was, but many pieces of information alluded him. He reports that he has been a little depressed and that there has been another time in his life where he had a little bit of depression, but he denies knowledge of what they gave him at that time. He reports he would be open to a trial of an antidepressant. We discussed the risks, benefits, and alternatives of increasing his Prozac, and he understood and agreed to proceed as is documented in this note. He was fairly incapable of giving more than cursory information about other aspects of his life and history. Staff have reported that he has had moments of greater or less confusion overall. Meds Current Medications: Current Medications Generic Name Dose Route Start Last Admin Trade Name Marissa PRN Reason Stop Dose Admin Acetaminophen 500 mg 07/04/21 23:38 07/07/21 21:19 Acetaminophen 50 0 Mg Tablet PO 500 mg Q6H PRN Administration MILD PAIN OR INCR EASE TEMP Amlodipine Besylat e 5 mg 07/07/21 09:00 07/07/21 08:37 Amlodipine 5 Mg Tablet PO 5 mg DAILY KEVIN Administration Aspirin 81 mg 07/06/21 09:00 07/07/21 08:36 Aspirin 81 Mg Ec Tablet PO 81 mg DAILY KEVIN Administration Cetirizine HCl 10 mg 07/05/21 09:00 07/07/21 08:37 Cetirizine 10 Mg Tablet PO 10 mg DAILY KEVIN Administration Clopidogrel Bisulf ate 75 mg 07/05/21 09:00 07/07/21 08:37 Clopidogrel 75 M g Tablet PO 75 mg DAILY KEVIN Administration Ezetimibe 10 mg 07/05/21 21:00 07/07/21 08:37 Ezetimibe 10 Mg Tablet PO 10 mg DAILY KEVIN Administration Fluoxetine HCl 40 mg 07/05/21 09:00 07/07/21 08:36 Fluoxetine 20 Mg Capsule PO 40 mg DAILY KEVIN Administration Diltiazem HCl 125 mg/ Sodium 125 mls @ 0 mls/h r 07/04/21 20:30 07/08/21 01:42 Chloride IV 0 mg/hr .Q0M KEVIN 0 mls/hr Titration Protocol Per Protocol Ceftriaxone Sodium 1,000 mg/ 50 mls @ 100 mls/ hr 07/07/21 09:00 07/07/21 11:31 Sodium Chloride IV Infused Q24H KEVIN Infusion Protocol Insulin Human Lisp ro 0 unit 07/05/21 18:00 07/07/21 21:26 Insulin Lispro 1 00 Unit/1 Ml SUBCUT Not Given WM&BEDTIME KEVIN Protocol Latanoprost 1 drop 07/05/21 21:00 07/07/21 21:19 Latanoprost 0.00 5% Op Soln 2.5 Ml Btl EYE-BOTH 1 drop BEDTIME KEVIN Administration Meclizine HCl 25 mg 07/07/21 15:00 07/07/21 21:19 Meclizine 25 Mg Tablet PO 25 mg TID KEVIN Administration Metoprolol Tartrat e 50 mg 07/04/21 23:55 07/07/21 21:19 Metoprolol Tartr ate 50 Mg Tablet PO 50 mg BID@0900,2100 KEVIN Administration Tamsulosin HCl 0.4 mg 07/05/21 09:00 07/07/21 08:37 Tamsulosin 0.4 M g Capsule PO 0.4 mg DAILY KEVIN Administration PFSH NPU PFSH: Medical History Attention deficit disorder Carotid stenosis Cataract COPD (chronic obstructive pulmonary disease) CVA (cerebrovascular accident) cva 3 weeks ago Diabetes 1.5, managed as type 2 Gout Hypertension Malignant neoplasm of lateral wall of bladder Sleep apnea Surgical History H/O hemorrhoidectomy H/O vasectomy History of penile implant Requires deflation before catheter placement History of total right knee replacement Status post carotid surgery Family History Father , at age 59-pneumonia Arthritis Mother , at age 89 Dementia Social History Smoking and tobacco status: former smoker Alcohol intake: never Lives independently: No Household members: spouse Marital status: Current occupational status: retired History of recent travel: No Mental Status Exam MSE Comments: This is an overweight, elderly, white male, in hospital gown, with limited grooming, and eye contact. No abnormal movements except for psychomotor retardation. Cooperative with exam in no acute distress. Speech was limited and decreased rate and volume. Mood described as depressed; affect congruent. Thought process, organized. Thought content: patient denied any suicidal or homicidal ideation, there were no delusions reported or noted, patient denied any auditory or visual hallucinations. Attention, concentration, and memory appear intact but were not formally tested. He is alert and oriented times three. Insight and judgment appear fair, impulse control fair. Vitals/I&O/Wt Last Vital Signs Temp 97.8 F 07/08/21 03:39 Pulse 95 07/08/21 03:39 Resp 19 H 07/08/21 03:39 BP 154/96 07/08/21 03:39 Pulse Ox 98 07/08/21 03:39 07/07/21 07/07/21 07/08/21 14:59 22:59 06:59 Intake Total 1168 / 1168 1249.667 / 2417.667 21.417 / 2439.084 Output Total 800 / 800 900 / 1700 Balance 368 / 368 1249.667 / 1617.667 -878.583 / 739.084 Weight last 48 hrs Weight 91.263 kg Weight 88.451 kg Physical Exam Urinary Catheter Management^: Brar: Cath Placed During This Visit: yes Reason for Continuing Indwelling Catheter: Other Urinary Catheter Date of Insertion: 07/07/21 Urinary Catheter Time of Insertion: 16:25 Data NPU Micro: Micro: Microbiology 07/07/21 06:15 Blood Culture - Pr eliminary Blood SPECIMEN [facility] 07/07/21 06:12 Blood Culture - Pr eliminary Blood SPECIMEN [facility] Microbiology 07/07/21 06:15 Blood Blood Culture - Preliminary SPECIMEN COLLECTED 07/07/21 06:12 Blood Blood Culture - Preliminary SPECIMEN COLLECTED A&P Assessment and plan (1) Orthostatic hypotension: Status: Acute (2) Elevated troponin: Status: Acute (3) UTI (urinary tract infection): Status: Acute (4) DVT prophylaxis: Status: Acute (5) Fall: Status: Acute (6) Hypertension: Status: Acute (7) Acute on chronic kidney failure: Status: Acute (8) Atrial fibrillation with rapid ventricular response: Status: Acute (9) Status post carotid surgery: Status: Acute (10) Bacteriuria: Status: Acute (11) Dementia: Status: Acute (12) YAMILET (acute kidney injury): Status: Acute (13) Weakness: Status: Acute (14) Malignant neoplasm of lateral wall of bladder: Status: Acute (15) CVA (cerebrovascular accident): Status: Acute (16) Carotid stenosis: Status: Acute (17) Depression: Status: Acute Additional A&P Information This is an 86-year-old, white male, with a reported history of some depression at previous times in his life, with significant psychosocial stressors of being from his , as she is in a residential, as well as acknowledging challenges of his own mild to moderate dementia, who presents open to the possibility of increasing his Prozac if necessary.. RECOMMENDATION AND PLAN: 1. Continue current medication except: 2. Consider increasing Prozac to 60 mg p.o. daily. Biopsy reviewed with family when it was increased to 40 mg. 3. Will follow daily. Attestations NPU Medical Necessity Statement*: N/A. Please see primary team note for medical necessity. 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
[2021-07-08] MEDS: midodrine 5 mg TABLET PO ×4 (06:03→21:09)
[2021-07-08 06:56] LABS: Glucose Point of Care 101 mg/dL (70-110)
--- NOTE | 2021-07-08 07:17 | PC.NURSE ---
late entry, 07/07 appx. 1930 HR in 180's, pt received metoprolol IV push, HR returned to normal, pt c/o headache, becoming agitated, asking what's going on? nobody is answering my questions , attempted to reassure pt and answer questions. HR increasing to 140s and 150's, received order from Dr Bailey to restart cardizem gtt and if bp dropped to start amiodarone gtt, went back into pt room, pt was attempting to get up out of bed, had removed telemetry and was pulling on carroll, told pt not to pull on carroll, pt said well then give me a knife and I'll cut it , attempt to redirect pt, pt was agitated, said he was in a field and we were trying to push him in the pond, attempt to reassure pt that he was in the hospital and was safe, at this time bp was in the 70's, received order from Dr Núñez for 250 cc NS bolus, pt again trying to get out of bed, received order from Dr Núñez for 1:1 sitter
--- NOTE | 2021-07-08 08:08 | XRR_ITS ---
PROCEDURE INFORMATION: Exam: XR Chest Exam date and time: 07/08/2021 8:08 AM Age: 86 years old Clinical indication: Shortness of breath; Additional info: SOB TECHNIQUE: Imaging protocol: XR of the chest. Views: 1 view. COMPARISON: CR XR chest 1V portable [id number] 07/04/2021 5:18 PM FINDINGS: Lungs: Low lung volumes. Increased lucency of the lungs with increased lung markings, suggestive of emphysema. Bibasilar atelectasis. Pneumonia should be excluded clinically. Pleural spaces: Unremarkable. No pleural effusion. No pneumothorax. Heart/Mediastinum: Stable cardiomediastinal silhouette. Vasculature: Aortic arch atherosclerotic calcifications seen. Bones/joints: Degenerative changes of the spine seen. XR/XR chest 1V portable [id number] IMPRESSION: 1. COPD changes. 2. Bibasilar atelectasis. Pneumonia should be excluded clinically. Radiation Dose CTDIVOL = (mGy): DLP = (mGy-cm)
--- NOTE | 2021-07-08 08:57 | CTR_ITS ---
PROCEDURE INFORMATION: Exam: CT Head Without Contrast Exam date and time: 07/08/2021 8:57 AM Age: 86 years old Clinical indication: Injury or trauma; Fall; Blunt trauma (contusions or hematomas); Consciousness not specified; Additional info: Headache and h/o fall TECHNIQUE: Imaging protocol: Computed tomography of the head without contrast. Radiation optimization: All CT scans at this facility use at least one of these dose optimization techniques: automated exposure control; mA and/or kV adjustment per patient size (includes targeted exams where dose is matched to clinical indication); or iterative reconstruction. COMPARISON: CT head wo con* [id number] 07/04/2021 5:35 PM RADIATION DOSE METRICS: Total DLP (mGy-cm): 588.22 FINDINGS: Brain: No hemorrhage, mass effect or midline shift. No acute, major vascular distribution infarction identified. There is foci of decreased attenuation in the periventricular and subcortical white matter, likely representing chronic small vessel ischemic changes. Mild cerebral volume loss is present. No intra-axial or extra-axial fluid collection seen. Cerebral ventricles: No ventriculomegaly. Paranasal sinuses: There is partial opacification of the right anterior ethmoid air cells/frontal sinus by a mucous retention cyst or polyp measuring approximately 3.1 cm. Other paranasal sinuses are well aerated. Mastoid air cells: Visualized mastoid air cells are well aerated. Orbital cavity: Bilateral lens replacement noted. Bones/joints: Unremarkable. No acute fracture. Soft tissues: Unremarkable. CT/CT head wo con* [id number] IMPRESSION: No acute intracranial abnormality. Radiation Dose CTDIVOL = (mGy): DLP = 588.22 (mGy-cm)
[2021-07-08] MEDS: metoprolol tartrate 50 mg Tablet PO ×2 (09:30→21:09)
[2021-07-08] MEDS: acetaminophen 500 mg Tablet PO ×2 (09:30→16:22)
[2021-07-08] MEDS: cefTRIAXone 1,000 MG in sodium chloride 0.9% (plus) 50 ML 100 MG IV (10:30)
[2021-07-08] MEDS: tamsulosin 0.4 mg Capsule PO (10:31)
[2021-07-08] MEDS: fluoxetine 20 mg Capsule 40 MG PO (10:31)
[2021-07-08] MEDS: meclizine 25 mg tablet PO ×3 (10:31→21:09)
[2021-07-08] MEDS: amlodipine 5 mg Tablet PO (10:32)
[2021-07-08] MEDS: ezetimibe 10 mg Tablet PO (10:32)
[2021-07-08] MEDS: clopidogrel 75 mg Tablet PO (10:32)
[2021-07-08] MEDS: aspirin 81 mg EC Tablet PO (10:32)
--- NOTE | 2021-07-08 11:23 | PM.PN ---
Subjective Subjective: Interval history: Patient was seen and examined this morning, overnight he went into aflutter with RVR needing metoprolol I.V as well as to be on cardizem drip.Cardizem drip was discontinued this morning.Patient was able to sit in chair for some time today, worked with physical therapy briefly.He was complaining of persistent headache in occipital region.Which is likely due to the fall at the intermediate. Medications: Reviewed: Yes Vitals/I&O/Wt Last Vital Signs Temp 97.5 F L 07/08/21 07:25 Pulse 97 07/08/21 07:25 Resp 19 H 07/08/21 07:25 BP 153/95 07/08/21 07:25 Pulse Ox 96 07/08/21 07:25 07/07/21 07/08/21 07/08/21 22:59 06:59 14:59 Intake Total 1249.667 / 2417.667 21.417 / 2439.084 240 / 240 Output Total 900 / 1700 Balance 1249.667 / 1617.667 -878.583 / 739.084 240 / 240 Weight last 48 hrs Weight 91.263 kg Weight 88.451 kg Physical Exam Narrative: EXAM NARRATIVE: Alert,awake and oriented. HENMT: COMMON NORMALS: normocephalic and atraumatic HEAD & SCALP: normocephalic and atraumatic Resp: COMMON NORMALS: clear to auscultation bilaterally EFFORT & INSPECTION: Yes symmetric chest movement AUSCULTATION: clear to auscultation bilaterally Cardio: OTHER: S1-S2 variable intensity , irregularly irregular rhythm GI: COMMON NORMALS: Normal to inspection, nondistended, normoactive bowel sounds present, Soft to palpation, non-tender, No hepatosplenomegaly present and no masses AUSCULTATION: Yes normoactive bowel sounds PALPATION: Yes Soft to palpation and Yes No hepatosplenomegaly present RECTAL EXAM: Yes deferred Extremity: COMMON NORMALS: no clubbing, cyanosis or edema and no pedal edema Urinary Catheter Management^: Brar: Cath Placed During This Visit: yes Reason for Continuing Indwelling Catheter: Other Urinary Catheter Date of Insertion: 07/07/21 Urinary Catheter Time of Insertion: 16:25 Data : 07/08/21 04:40 07/08/21 04:40 Micro: Microbiology 07/07/21 05:10 Urine Culture - Preliminary Urine,Voided Coagulase negativ staphylococc 07/07/21 06:15 Blood Culture - Preliminary Blood NEGATIVE TO DATE 07/07/21 06:12 Blood Culture - Preliminary Blood NEGATIVE TO DATE A&P Assessment and plan (1) Atrial fibrillation with rapid ventricular response: Atrial fibrillation/Flutter with RVR ECHO: Normal LV systolic function, normal LVEF of 55 to 60%, no RWMA noted , no gross valvular abnormality. Technically echo is of poor quality. TSH:Normal Initially patient was on Cardizem drip, which has been discontinued. On Metoprolol 50 mg PO BID.H/R is well controlled. Initially on Lovenox 90mg SQ BID.Has been discontinued as the patient is at high risk for fall due to his h/o severe symptomatic chronic vertigo .It was discussed with family and it was mutually agreed not to continue Ac. Continue telemetry Status: Acute (2) Non-ST elevation [place] (NSTEMI): Elevated troponin likely NSTEMI type II: Secondary demand ischemia secondary to A. fib with RVR. Cannot conclusively rule out underlying coronary artery disease, given his risk factors.Though he has denied chest pain during hospital stay. Episodic Atriall flutter with RVR can be ischemia induced. 2D echo as above Aspirin 81 mg p.o.daily Plavix 75 mg PO daily. Family do not want any aggressive intervention. Medical management for now. Status: Acute (3) Acute on chronic kidney failure: CKD stage III Baseline serum creatinine 1.3->1.5 Monitor BMP Holding losartan Monitor u/o Status: Acute (4) Hypertension: Norvasc 5 mg PO daily.Allowing permissive hypertension given significant Orthostatic Hypotension. Metoprolol.50 mg po BID Status: Acute (5) UTI (urinary tract infection): Cef 1 gm q24h daily urine culture. Coagulase negative staph. Blood culture :NTD Status: Acute (6) Fall: Fall precautions CT head wo contrast - negative PT/OT consult Status: Acute (7) DVT prophylaxis: SCDS Lovenox as noted above. Status: Acute Additional A&P Information persistent headache in occipital region: .Which is likely due to the fall at the intermediate:C.T Head without contrast *2 has been negative.Pain control. Progressive Depression:On Prozac 40 mg po daily.Psych consult.Possible L/P if the mentation fails to improve. Dementia : Advanced dementia. Chronic symptomatic vertigo: Meclizine 25 mg p.o. 3 times daily. Symptomatic O/H :Midodrine 5 mg po TID. Adequate volume replacement has been done. CODE STATUS:AND DVT prophylaxis: LOVENOX 40 subcu daily Attestations Medical Necessity Statement*: Patient needs to be in hospital for the management of above defined problems. 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
[2021-07-08 11:55] LABS: Glucose Point of Care 169 mg/dL (70-110)
[2021-07-08] MEDS: insulin lispro 100 unit/1 mL SUBCUT ×2 (13:15→21:09)
[2021-07-08] MEDS: sodium chloride 0.9% 1,000 ML 50 ML IV (16:22)
[2021-07-08 17:24] LABS: Glucose Point of Care 135 mg/dL (70-110)
--- NOTE | 2021-07-08 19:00 | PC.NURSE ---
Shift change pt became confused and disorientedx3. he was sitting up in bed and trying to stand up. HR ins 170s to 180s short lived until we assisted pt back to lying position and HR came back down to upper 90s. notified.
[2021-07-08 20:23] LABS: Glucose Point of Care 192 mg/dL (70-110)
[2021-07-08] MEDS: haloperidol 5 mg Tablet PO (21:09)
[2021-07-08] MEDS: latanoprost 0.005% Op Soln 2.5 mL Btl 1 DROP EYE-BOTH (21:12)
[2021-07-08 21:47] LABS: SARS Covid-2 Antigen Negative (Negative)
[2021-07-09] VITALS (10 sets, daily range): BP systolic 100–165; BP diastolic 46–101; PULSE 67–151; RESP 12–20; TEMP 36.6–37.1; O2SAT 92–98
[2021-07-09 07:00] LABS: Glucose Point of Care 111 mg/dL (70-110)
--- NOTE | 2021-07-09 09:01 | PC.SOCIAL ---
IMM Update Pg. 2 of IMM updated and reviewed with patient, who verbalized understanding. Copy provided.
[2021-07-09] MEDS: fluoxetine 20 mg Capsule 40 MG PO (09:07)
[2021-07-09] MEDS: amlodipine 5 mg Tablet PO (09:07)
[2021-07-09] MEDS: metoprolol tartrate 50 mg Tablet PO ×2 (09:07→21:01)
[2021-07-09] MEDS: tamsulosin 0.4 mg Capsule PO (09:07)
[2021-07-09] MEDS: midodrine 5 mg TABLET PO ×3 (09:07→21:01)
[2021-07-09] MEDS: ezetimibe 10 mg Tablet PO (09:07)
[2021-07-09] MEDS: meclizine 25 mg tablet PO ×3 (09:07→21:01)
[2021-07-09] MEDS: clopidogrel 75 mg Tablet PO (09:07)
[2021-07-09] MEDS: aspirin 81 mg EC Tablet PO (09:07)
[2021-07-09] MEDS: cefTRIAXone 1,000 MG in sodium chloride 0.9% (plus) 50 ML 50 MG IV (09:08)
--- NOTE | 2021-07-09 10:30 | PC.NUTR ---
Nutrition assessment for LOS. PO intakes averaing 25%, with 6 meals noted at 0%. Recommend liberalizing diet to Regular in order to better provide pt preferences. Recommend Glucerna with meals. See full RD assessment for further details.
[2021-07-09] MEDS: vancomycin 1,250 MG/250 ML PIGGYBACK 250 MG IV (11:24)
[2021-07-09 11:41] LABS: Glucose Point of Care 116 mg/dL (70-110)
[2021-07-09 11:42] LABS: Basophils % 0.5 %; Eosinophils # 0.3 10^3/uL (0.0-0.8); Eosinophils % 5.3 %; Hemoglobin 13.2 g/dL (11.7-16.6); Lymphocytes # 0.7 10^3/uL (0.8-4.8); Mean Corpuscular HGB Conc 34.7 g/dL (30.0-36.0); Mean Corpuscular Hemoglobin 30.3 pg (28.0-34.0); Mean Corpuscular Volume 87.4 fl (80-94); Mean Platelet Volume 9.6 fL (7.4-10.4); Monocytes # 0.6 10^3/uL (0.2-0.9); Monocytes % 8.8 %; Neutrophils # 4.85 10^3/uL (1.8-7.7); Neutrophils % 74.9 %; Nucleated Red Blood Cells % 0 %; Platelet Count 206 10^3/cmm (130-400); Red Blood Count 4.35 10^6/uL (4.1-5.3); Red Cell Distribution Width 12.4 % (12.1-15.1); White Blood Count 6.5 10^3/uL (4.0-10.0)
[2021-07-09 12:11] LABS: Alanine Aminotransferase 26 U/L (0-41); Albumin Level 3.2 g/dL (3.5-5.2); Alkaline Phosphatase 100 IU/L (40-130); Anion Gap 13.1 (5-19); Aspartate Amino Transferase 19 U/L (0-40); Blood Urea Nitrogen 33 mg/dL (8-23); Calcium 8.6 mg/dL (8.5-10.5); Carbon Dioxide 24 mmol/L (22-29); Chloride 105 mmol/L (98-107); Globulin 2.6 g/dL (1.3-4.6); Glucose 118 mg/dL (65-115); Osmolality Calculated 294 mOsm/kg (285-295); Potassium 4.1 mmol/L (3.5-5.1); Sodium 138 mmol/L (136-145); Total Bilirubin 0.3 mg/dL (0.15-1.2); Total Protein 5.8 g/dL (6.6-8.7)
[2021-07-09] MEDS: sodium chloride 0.9% 1,000 ML 50 ML IV ×2 (14:40→18:45)
[2021-07-09] MEDS: enoxaparin 40 mg/0.4 mL Syringe SUBCUT (15:52)
[2021-07-09 16:30] LABS: Glucose Point of Care 234 mg/dL (70-110)
--- NOTE | 2021-07-09 16:32 | PM.NPN ---
Subjective NPU Subjective: Interval history: Patient presents today fairly tired and not talkative. Staff report that I just missed his [id number] but at this point he is denying significant depression at this time. We discussed that it is certainly reasonable that he was feeling crappy on the day that he came in. Mental Status Exam MSE Comments: This is an overweight, elderly, white male, in hospital gown, with limited grooming, and eye contact. No abnormal movements except for psychomotor retardation. Cooperative with exam in no acute distress. Speech was limited and decreased rate and volume. Mood described as okay; affect congruent, but subdued. Thought process, organized. Thought content: patient denied any suicidal or homicidal ideation, there were no delusions reported or noted, patient denied any auditory or visual hallucinations. Attention, concentration, and memory appear intact but were not formally tested. He is alert and oriented times three. Insight and judgment appear fair, impulse control fair. Vitals/I&O/Wt Last Vital Signs Temp 98.1 F 07/09/21 15:19 Pulse 98 07/09/21 15:19 Resp 17 07/09/21 15:19 BP 125/78 07/09/21 15:19 Pulse Ox 97 07/09/21 15:19 07/09/21 07/09/21 07/09/21 06:59 14:59 22:59 Intake Total 100 / 1350 1240 / 1240 Output Total 1700 / 2800 1450 / 1450 Balance -1600 / -1450 -210 / -210 Weight last 48 hrs Weight 95.708 kg Weight 91.263 kg Physical Exam Urinary Catheter Management^: Brar: Cath Placed During This Visit: yes Reason for Continuing Indwelling Catheter: Other Urinary Catheter Date of Insertion: 07/07/21 Urinary Catheter Time of Insertion: 16:25 Data NPU : 07/10/21 03:16 07/10/21 03:16 A&P Additional A&P Information (1) Orthostatic hypotension: (2) Elevated troponin: (3) UTI (urinary tract infection): (4) DVT prophylaxis: (5) Fall: (6) Hypertension: (7) Acute on chronic kidney failure: (8) Atrial fibrillation with rapid ventricular response: (9) Status post carotid surgery: (10) Bacteriuria: (11) Dementia: (12) YAMILET (acute kidney injury): (13) Weakness: (14) Malignant neoplasm of lateral wall of bladder: (15) CVA (cerebrovascular accident): (16) Carotid stenosis: (17) Depression: Additional A&P Information This is an 86-year-old, white male, with a reported history of some depression at previous times in his life, with significant psychosocial stressors of being from his , as she is in a fdc, as well as acknowledging challenges of his own mild to moderate dementia, who presents open to the possibility of increasing his Prozac if necessary.. RECOMMENDATION AND PLAN: 1. Continue current medication except: 2. Consider increasing Prozac to 60 mg p.o. daily. We will try to connect with family and figure out how concerned they are about the depression and whether we should press the dose and when to change to 40 mg 3. Will follow daily.. Attestations NPU Medical Necessity Statement*: N/A. Please see primary team note for medical necessity. 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
--- NOTE | 2021-07-09 17:05 | P.PN_ITS ---
Subjective Subjective: Interval history: Hospital course, labs appreciated. On examination patient lying comfortably in bed, having episodes of confusion. Did have episode of mild agitation last night which was managed with p.o. Haldol. Patient has remained hemodynamically stable and afebrile. Urine culture growing coag negative staph. Medications: Reviewed: Yes Vitals/I&O/Wt Last Vital Signs Temp 98.1 F 07/09/21 15:19 Pulse 98 07/09/21 15:19 Resp 17 07/09/21 15:19 BP 125/78 07/09/21 15:19 Pulse Ox 97 07/09/21 15:19 07/09/21 07/09/21 07/09/21 06:59 14:59 22:59 Intake Total 100 / 1350 1240 / 1240 Output Total 1700 / 2800 1450 / 1450 Balance -1600 / -1450 -210 / -210 Weight last 48 hrs Weight 95.708 kg Weight 91.263 kg Physical Exam Narrative: EXAM NARRATIVE: General: No acute distress, AO x 1-2, confused HEENT: PERRLA, pupils bilaterally equal and reactive Chest: Normal vesicular breath sounds, no added sounds, equal good air entry bilaterally CVS: S1-S2 regular, no murmurs, no tachycardia, no gallops, no rubs Abdomen: Soft, nontender, no organomegaly, bowel sounds present Neuro: No focal deficits, no facial deformity, AO x3, power 5/5 in all limbs Urinary Catheter Management^: Brar: Cath Placed During This Visit: yes Reason for Continuing Indwelling Catheter: Other Urinary Catheter Date of Insertion: 07/07/21 Urinary Catheter Time of Insertion: 16:25 Data : 07/09/21 11:32 07/09/21 11:32 A&P Assessment and plan (1) Atrial fibrillation with rapid ventricular response: New diagnosis. Continue with metoprolol 50 mg twice daily. Heart rate better controlled. Echocardiogram results shows EF of 55 to 60% without regional wall motion of normality, no valvular abnormality. TSH within normal limits. After discussion with family it was decided not to give anticoagulation given history of recurrent falls. Continue with telemetry. Status: Acute (2) Acute on chronic kidney failure: Baseline creatinine 1.3-1.5. Medical reconciliation done for nephrotoxic drugs. Strict input output charting. Monitor BMP daily. Status: Acute (3) UTI (urinary tract infection): History of MRSA UTI. Urine culture growing coag negative staph. Switch from ceftriaxone to vancomycin. Blood cultures so far negative. Status: Acute (4) Elevated troponin: Most likely secondary to demand ischemia from A. fib with RVR along with YAMILET/renal dysfunction. Echocardiogram results as above. Continue with aspirin, statin. Check HbA1c, lipid panel. As per discussion with family early in the admission do not want any aggressive intervention or cardiac angiogram. Continue medical management. Status: Acute (5) Orthostatic hypotension: Most likely secondary to dehydration along with atrial fibrillation. Given bolus 500 cc fluid. Continue NS at 50 cc/h. Continue with Flomax. Continue with midodrine 5 mg daily. Orthostatic check every shift. Status: Acute (6) Fall: Fall precautions CT head wo contrast - negative PT/OT consult Status: Acute (7) Hypertension: Norvasc 5 mg PO daily.Allowing permissive hypertension given significant Orthostatic Hypotension. Metoprolol.50 mg po BID Status: Acute (8) DVT prophylaxis: SCDS Lovenox as noted above. Status: Acute Additional A&P Information persistent headache in occipital region: Most likely secondary to fall. CT head without contrast negative. MRI brain done today negative. Confusion: Most likely secondary to advanced dementia. Cannot rule out metabolic encephalopathy because of UTI and atrial fibrillation. Continue with Prozac. Add donepezil. Chronic symptomatic vertigo: Meclizine 25 mg p.o. 3 times daily. CODE STATUS:AND DVT prophylaxis: LOVENOX 40 subcu daily Patient's care discussed in detail with his [id number] over the phone. She states patient's is also at [facility] because of advanced parkinsonism. Patient's DPOA is his daughter who is recovering from ALS in [place]. States she is the one who is been taking medical decisions regarding their health for last 1 year. Wants DPOA paperwork to be drawn. Will speak with case management. Attestations Medical Necessity Statement*: Requires further hospitalization for management of UTI, atrial fibrillation rapid ventricular response, confusion secondary to advanced dementia, orthostatic hypotension. Time Spent in Patient Care: Greater than 35 minutes (>than 50% of time spent in counselling and/or direct pt care on unit) . Coding Level of Care Code Acute Manager Valuation for Hosea Delgado Diagnoses Atrial fibrillation with rapid ventricular response I48.91 Acute on chronic kidney failure N17.9; N18.9 UTI (urinary tract infection) N39.0 Elevated troponin R77.8 Orthostatic hypotension I95.1 Fall W19.XXXA Hypertension I10 DVT prophylaxis Z29.9
[2021-07-09] MEDS: insulin lispro 100 unit/1 mL SUBCUT (17:42)
--- NOTE | 2021-07-09 18:42 | MR_ITS ---
WS: [id number] MRI HEAD WITHOUT CONTRAST TECHNIQUE: Sagittal T1, T2 axial, T2 axial FLAIR, axial and coronal T1 images, axial susceptibility w eighted imaging, axial diffusion weighted images, and coronal T2 images were obtained. CLINICAL INFORMATION: Severe Vertigo COMPARISON: CT July 08, 2021 FINDINGS: No evidence of restricted diffusion to suggest acute ischemia. Moderate to advanced small vessel redman ges with moderate to advanced parenchymal volume loss. Small vessel changes in the lucho. Tiny chronic infarct right cerebellum. 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 Otherwise normal vascular flow voids at the skull base. Mild mucosal thickening paranasal sinuses. Partial opacification right frontoethmoidal recess. Mastoi d air cells well aerated. No hemosiderin on susceptibly weighted images. Normal optic chiasm and pituitary infundibulum. Advanc ed symmetric atrophy temporal lobes and hippocampal formations. MR/MR head wo con* [id number] IMPRESSION: 1. No evidence of restricted diffusion to suggest acute ischemia. 2. Moderate to advanced small vessel changes with moderate to advanced parench ymal volume loss. 3. Small vessel changes in the lucho. 4. Tiny chronic lacunar infarcts right cerebellum. 5. 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 6. Mild mucosal thickening in the paranasal sinuses. 7. No hemosiderin on the susceptibly weighted images.
[2021-07-09 20:37] LABS: Glucose Point of Care 94 mg/dL (70-110)
[2021-07-09] MEDS: donepezil 5 MG Tablet 10 MG PO (21:00)
[2021-07-09] MEDS: latanoprost 0.005% Op Soln 2.5 mL Btl 1 DROP EYE-BOTH (21:02)
[2021-07-09] MEDS: haloperidol 5 mg Tablet PO (21:02)
[2021-07-10] VITALS (8 sets, daily range): BP systolic 126–169; BP diastolic 70–88; PULSE 56–74; RESP 10–23; TEMP 36.6; O2SAT 94–99
[2021-07-10 04:07] LABS: Basophils % 0.5 %; Eosinophils # 0.4 10^3/uL (0.0-0.8); Eosinophils % 6.3 %; Hematocrit 34.7 % (42.0-52.0); Hemoglobin 11.3 g/dL (11.7-16.6); Lymphocytes # 0.7 10^3/uL (0.8-4.8); Lymphocytes % 11.9 %; Mean Corpuscular HGB Conc 32.6 g/dL (30.0-36.0); Mean Corpuscular Hemoglobin 29.8 pg (28.0-34.0); Mean Corpuscular Volume 91.6 fl (80-94); Mean Platelet Volume 10.1 fL (7.4-10.4); Monocytes # 0.7 10^3/uL (0.2-0.9); Monocytes % 11.1 %; Neutrophils # 4.35 10^3/uL (1.8-7.7); Neutrophils % 69.6 %; Nucleated Red Blood Cells % 0 %; Platelet Count 192 10^3/cmm (130-400); Red Blood Count 3.79 10^6/uL (4.1-5.3); Red Cell Distribution Width 12.5 % (12.1-15.1); White Blood Count 6.2 10^3/uL (4.0-10.0)
[2021-07-10 04:41] LABS: Alanine Aminotransferase 23 U/L (0-41); Albumin Level 2.8 g/dL (3.5-5.2); Alkaline Phosphatase 93 IU/L (40-130); Anion Gap 16.5 (5-19); Aspartate Amino Transferase 16 U/L (0-40); Blood Urea Nitrogen 45 mg/dL (8-23); Calcium 8.5 mg/dL (8.5-10.5); Carbon Dioxide 21 mmol/L (22-29); Chloride 108 mmol/L (98-107); Globulin 2.7 g/dL (1.3-4.6); Glucose 103 mg/dL (65-115); Osmolality Calculated 304 mOsm/kg (285-295); Potassium 4.5 mmol/L (3.5-5.1); Sodium 141 mmol/L (136-145); Total Bilirubin 0.3 mg/dL (0.15-1.2); Total Protein 5.5 g/dL (6.6-8.7)
--- NOTE | 2021-07-10 08:35 | PC.CHAP ---
Pastoral Care Encounter/Spiritual Assessment Type of Contact [] Declined tool and production planner visit [] Patient/Family/Request visit [] Outpatient visit [] Follow-up visit [] Physician referral [] Code/Alert [x] Routine visit [] Staff referral [] Actively dying [] Patient sleeping [] Family support [] [] Out of room [] Palliative care [] [] Receiving care in room [] Pre-surgical visit [] Trauma [] Long length of stay [] ICU visit [] Other: Relational/Emotional Strength [] Patient feels connected with others/family/visitors/staff [] Distress [x] Loneliness/isolation [] Abandonment Spirituality of Patient [x] Person of Tanya [x] Attends Episcopalian of their Tanya [x] Believes in Prayer [] Reads Bible or Presybeterian materials [] There are Spiritual issues to be addressed Breaker Operator Interventions [x] Prayer [x] Active listening [x] Non-anxious presence [x] Spiritual/emotional support [] Crisis/trauma care [] Spiritual counseling [] Bereavement support [] Provided bereavement packet [] Provided Bible/devotional materials [] Provided toy/stuffed animal, coloring book to patient or family member [] Provided Communion [] Anointing/[place] [] Salvation [x] Completed spiritual assessment [] Other: Impact on Illness or Injury [] Angry [] Fearful [] Anxious [] Often cries [] Exhaustion [] Unable to work [] Unable to attend islam [] Unable to walk/stand [] Unable to read [] Unable to drive [] Unable to eat/drink [] Unable to sleep [] Unable to be with family [] Patient intubated [] Other: Summary Pt lives at residential care facility with his . He said his 's mind is unclear so he is not in contact with her and she is probably not aware he is in hospital. He stated he did attend [employer] while healthy and his director medical economics does come to see him at the [facility] about 1x per week. Pt reports the doctors have not determined what is wrong. He fell and hurt his neck and back. He remains in pain. Time spent with patient 5m
[2021-07-10 09:57] LABS: Glucose Point of Care 106 mg/dL (70-110)
[2021-07-10] MEDS: sodium chloride 0.45% 1,000 ML 75 ML IV (11:28)
[2021-07-10] MEDS: clopidogrel 75 mg Tablet PO (11:30)
[2021-07-10] MEDS: ezetimibe 10 mg Tablet PO (11:31)
[2021-07-10] MEDS: aspirin 81 mg EC Tablet PO (11:31)
[2021-07-10] MEDS: ciprofloxacin 500 mg Tablet 250 MG PO ×2 (11:31→20:42)
[2021-07-10] MEDS: fluoxetine 20 mg Capsule 40 MG PO (11:32)
[2021-07-10] MEDS: metoprolol tartrate 50 mg Tablet PO ×2 (11:32→20:41)
[2021-07-10] MEDS: meclizine 25 mg tablet PO ×3 (11:32→20:42)
[2021-07-10] MEDS: tamsulosin 0.4 mg Capsule PO (11:32)
[2021-07-10] MEDS: amlodipine 5 mg Tablet PO (11:37)
[2021-07-10 11:38] LABS: Glucose Point of Care 149 mg/dL (70-110)
[2021-07-10] MEDS: insulin lispro 100 unit/1 mL SUBCUT (11:38)
[2021-07-10] MEDS: midodrine 5 mg TABLET 2.5 MG PO ×2 (15:33→20:41)
[2021-07-10] MEDS: enoxaparin 40 mg/0.4 mL Syringe SUBCUT (15:34)
--- NOTE | 2021-07-10 15:54 | PM.PN ---
Subjective Subjective: Interval history: No acute events overnight. Today morning examination patient is comfortably in bed. Alert and oriented to self and year but confused to place with having episodes of forgetfulness. No agitation overnight. Patient did have Haldol given at around 8 PM. Patient thinks he is at half-way currently. As per my conversation with patient's [id number] this seems to be his current baseline for last few months to a year. Medications: Reviewed: Yes Vitals/I&O/Wt Last Vital Signs Temp 98 F 07/10/21 04:00 Pulse 74 07/10/21 06:00 Resp 18 07/10/21 04:00 BP 157/88 07/10/21 04:00 Pulse Ox 95 07/10/21 04:00 07/10/21 07/10/21 07/10/21 06:59 14:59 22:59 Intake Total 100 / 3222.916 835.833 / 835.833 Output Total 600 / 3050 Balance -500 / 172.916 835.833 / 835.833 Weight last 48 hrs Weight 90.764 kg Weight 95.708 kg Physical Exam Narrative: EXAM NARRATIVE: General: No acute distress, AO x 1-2, confused HEENT: PERRLA, pupils bilaterally equal and reactive Chest: Normal vesicular breath sounds, no added sounds, equal good air entry bilaterally CVS: S1-S2 regular, no murmurs, no tachycardia, no gallops, no rubs Abdomen: Soft, nontender, no organomegaly, bowel sounds present Neuro: No focal deficits, no facial deformity, AO x3, power 5/5 in all limbs Urinary Catheter Management^: Brar: Cath Placed During This Visit: yes Reason for Continuing Indwelling Catheter: Other Urinary Catheter Date of Insertion: 07/07/21 Urinary Catheter Time of Insertion: 16:25 Data : 07/10/21 03:16 07/10/21 03:16 Micro: Microbiology 07/07/21 05:10 Urine Culture - Final Urine,Voided Staphylococcus hominis A&P Assessment and plan (1) Atrial fibrillation with rapid ventricular response: New diagnosis. Continue with metoprolol 50 mg twice daily. Heart rate better controlled. Echocardiogram results shows EF of 55 to 60% without regional wall motion of normality, no valvular abnormality. TSH within normal limits. After discussion with family it was decided not to give anticoagulation given history of recurrent falls. Continue with telemetry. Status: Acute (2) Acute on chronic kidney failure: Baseline creatinine to 1.7 with numbers going as high as 2.2 within last 1 year. Creatinine 1.7 and stable for now. Medical reconciliation done for nephrotoxic drugs. Strict input output charting. Monitor BMP daily. Status: Acute (3) UTI (urinary tract infection): History of MRSA UTI. Urine culture growing staph hominis. Switch from vancomycin to ciprofloxacin 250 every 12 hourly as per creatinine clearance and culture sensitivities. Status: Acute (4) Elevated troponin: Most likely secondary to demand ischemia from A. fib with RVR along with YAMILET/renal dysfunction. Echocardiogram results as above. Continue with aspirin, statin. As per discussion with family early in the admission do not want any aggressive intervention or cardiac angiogram. Continue medical management. Status: Acute (5) Orthostatic hypotension: Most likely secondary to dehydration along with atrial fibrillation. Switch from NS to half NS at 75 cc/h. Continue with Flomax. Blood pressure is mildly elevated today. Change midodrine to 2.5 mg 3 times a day. Orthostatic check every shift. Status: Acute (6) Fall: Fall precautions CT head wo contrast - negative PT/OT consult Status: Acute (7) Hypertension: Goal blood pressure less than 140/90 mmHg. Continue with Norvasc 5 mg oral daily, Toprol 50 mg twice daily. Monitor for orthostatic hypotension as above. Status: Acute (8) DVT prophylaxis: SCDS Lovenox as noted above. Status: Acute Additional A&P Information persistent headache in occipital region: Most likely secondary to fall. CT head without contrast negative. MRI brain done today negative. Confusion: Most likely secondary to advanced dementia. Cannot rule out metabolic encephalopathy because of UTI and atrial fibrillation. Continue with Prozac. Add donepezil. Appreciate psychiatry evaluation. Chronic symptomatic vertigo: Meclizine 25 mg p.o. 3 times daily. CODE STATUS:AND DVT prophylaxis: LOVENOX 40 subcu daily Patient's care discussed in detail with his [id number] over the phone. She states patient's is also at half-way because of advanced parkinsonism. Patient's DPOA is his daughter who is recovering from ALS in [place]. States she is the one who is been taking medical decisions regarding their health for last 1 year. Wants DPOA paperwork to be drawn. Will speak with case management. Discharge planning: If patient remains stable plan to discharge tomorrow on oral ciprofloxacin to finish a 7-day course and midodrine 2.5 mg 3 times a day along with metoprolol 50 mg twice daily. Attestations Medical Necessity Statement*: DefibrillatorRequires further hospitalization for management of hypertensive response, UTI, orthostatic hypotension Time Spent in Patient Care: Greater than 35 minutes (>than 50% of time spent in counselling and/or direct pt care on unit). Coding Level of Care Code Acute Precision Machining Instructor for Chg Fwd Diagnoses Atrial fibrillation with rapid ventricular response I48.91 Acute on chronic kidney failure N17.9; N18.9 UTI (urinary tract infection) N39.0 Elevated troponin R77.8 Orthostatic hypotension I95.1 Fall W19.XXXA Hypertension I10 DVT prophylaxis Z29.9
[2021-07-10 16:37] LABS: Glucose Point of Care 154 mg/dL (70-110)
--- NOTE | 2021-07-10 19:51 | PC.NURSE ---
pt has been confused today...at some moments worse than others.bed alarm has been on all day for safety.carroll removed at 1600 and pt has voided twice today since removal.plan is to discharge pt to [facility] tomorrow
[2021-07-10] MEDS: donepezil 5 MG Tablet 10 MG PO (20:42)
[2021-07-10] MEDS: latanoprost 0.005% Op Soln 2.5 mL Btl 1 DROP EYE-BOTH (20:42)
[2021-07-10] MEDS: haloperidol 5 mg Tablet PO (20:42)
[2021-07-10 21:02] LABS: Glucose Point of Care 132 mg/dL (70-110)
--- NOTE | 2021-07-10 22:06 | PC.NURSE ---
Order given from Dr. Perez to move patient to Med-Surg.
[2021-07-11] VITALS (7 sets, daily range): BP systolic 120–175; BP diastolic 70–90; PULSE 54–131; RESP 17–22; TEMP 36.4–36.7; O2SAT 95–98
[2021-07-11] MEDS: sodium chloride 0.45% 1,000 ML 75 ML IV (00:27)
[2021-07-11] MEDS: haloperidol 5 mg Tablet PO (02:12)
--- NOTE | 2021-07-11 04:18 | ECG_ITS ---
[facility] Test Date: 2021-07-11 Pat Name: Neha Pruett Department: Room: 252 Gender: Male Firearms Specialist: : [id number] Requested By: Graciela Perez Order Number: [id number] Reading MD: KENNETH ALLISON Measurements Intervals [place] Rate: 93 P: 65 NC: 266 QRS: 27 QRSD: 163 T: 52 QT: 388 QTc: 484 Interpretive Statements SINUS RHYTHM WITH FIRST DEGREE AV BLOCK WITH OCCASIONAL VENTRICULAR PREMATURE COMPLEXES INTRAVENTRICULAR CONDUCTION DELAY [130+ ms QRS DURATION] Compared to ECG 07/06/2021 15:43:40 Ventricular premature complex(es) now present Electronically Signed On 07-12-2021 0:11:18 CDT by KENNETH ALLISON [id number]
--- NOTE | 2021-07-11 04:52 | PC.NURSE ---
Patient had an episode of SVT and SOB, vital signs taken and physician notified with orders placed. Patient returned to NSR, resting comfortably in bed, will monitor closely, bed locked, bed alarm on, call light in reach, room clutter free.
[2021-07-11 06:10] LABS: Alanine Aminotransferase 32 U/L (0-41); Albumin Level 3.1 g/dL (3.5-5.2); Alkaline Phosphatase 104 IU/L (40-130); Aspartate Amino Transferase 21 U/L (0-40); Blood Urea Nitrogen 32 mg/dL (8-23); Calcium 8.9 mg/dL (8.5-10.5); Carbon Dioxide 22 mmol/L (22-29); Chloride 106 mmol/L (98-107); Globulin 2.9 g/dL (1.3-4.6); Glucose 129 mg/dL (65-115); Osmolality Calculated 299 mOsm/kg (285-295); Sodium 140 mmol/L (136-145); Total Bilirubin 0.4 mg/dL (0.15-1.2)
[2021-07-11 06:16] LABS: Glucose Point of Care 140 mg/dL (70-110)
[2021-07-11] MEDS: metoprolol tartrate 50 mg Tablet PO (07:04)
--- NOTE | 2021-07-11 07:04 | PC.NURSE ---
PTS HR WAS 162, DR WORKMAN CALLED AND VERBAL ORDER GIVEN TO ADMINISTER METOPROLOL 50MG PO EARLY AT 0705
[2021-07-11] MEDS: fluoxetine 20 mg Capsule 40 MG PO (08:26)
[2021-07-11] MEDS: aspirin 81 mg EC Tablet PO (08:26)
[2021-07-11] MEDS: meclizine 25 mg tablet PO (08:26)
[2021-07-11] MEDS: metoprolol tartrate 25 mg Tablet PO (08:26)
[2021-07-11] MEDS: ciprofloxacin 500 mg Tablet 250 MG PO (08:26)
[2021-07-11] MEDS: clopidogrel 75 mg Tablet PO (08:27)
[2021-07-11] MEDS: midodrine 5 mg TABLET 2.5 MG PO (08:27)
[2021-07-11] MEDS: tamsulosin 0.4 mg Capsule PO (08:27)
[2021-07-11] MEDS: amlodipine 5 mg Tablet PO (08:27)
[2021-07-11] MEDS: ezetimibe 10 mg Tablet PO (10:06)
--- NOTE | 2021-07-11 11:52 | PC.SOCIAL ---
IMM update IMM updated with patient and DPOA Priscilla. Verbalized an understanding. Copy Pg2 at bedside. Initialled, dated, timed, and placed in chart.
[2021-07-11 12:11] LABS: Glucose Point of Care 152 mg/dL (70-110)
--- NOTE | 2021-07-11 12:53 | P.DS_ITS ---
Discharge Providers Date of Admission: 07/04/21 20:25 Date of Discharge: July 11, 2021 Attending Provider at Admission: Damien Núñez Attending Provider at Discharge: Ady Hernandez MD Primary Care Provider: Federico Hinton MD Diagnoses at Discharge Discharge Diagnosis (1) Atrial fibrillation with rapid ventricular response: Status: Acute (2) Acute on chronic kidney failure: Status: Acute (3) UTI (urinary tract infection): Status: Acute (4) Elevated troponin: Status: Acute (5) Orthostatic hypotension: Status: Acute (6) Fall: Status: Acute (7) Hypertension: Status: Acute (8) DVT prophylaxis: Status: Acute Reason for Visit Reason for Visit: ALTERED LOC, BLURRED VISION Hospital Course Hospital Course History as per HPI. 84-year-old with a past medical history significant for carotid artery stenosis status post right endarterectomy, malignant neoplasm of bladder in remission, diabetes mellitus, hypertension, dementia, chronic obstructive pulmonary d isease, obstructive sleep apnea and chronic stage 3 kidney disease who presented to the hospital with fall at shelter. Patient was ended baseline confusion at the time of my evaluation and not able to provide any history. This was obtained from review of medical records and discussion with the ER staff. Apparently had fallen in the bathroom and sustained head trauma during the fall. Reportedly was complaining of blurred vision afterwards. No notable complaint of chest discomfort or shortness of breath. No notation of recent fever, chills, nausea vomiting. On admission patient was found to be in atrial fibrillation with rapid ventricular response. He was started on Cardizem drip which was later weaned off and transition to oral metoprolol. During hospitalization patient was found to have positive orthostatic hypotension for which further work-up was done and was managed by IV hydration and adding low-dose midodrine. MRI brain was done which ruled out stroke or any acute abnormality was consistent with age-related microvascular changes. Further discussions were done with patient's family and it was found that at baseline patient has been having more confusion than usual which has been attributed to advancing dementia. On admission patient was also found to have elevated troponin. There were concerns of non-ST elevation CO secondary demand ischemia from atrial fibrillation. Further work-up was discussed with patient's family but they requested to hold off given his advanced age and dementia. Anticoagulation was also discussed with family and decision was made mutually not to start him on anticoagulation given his recurrent falls and him being at a higher risk of catastrophic hemorrhage versus stroke due to intracranial bleeding. During hospitalization he was found to have urine studies positive for UTI though patient denied any dysuria. Urine culture was positive for staph hominis and treatment was changed as per culture sensitivities. Psychiatry was consulted and his medications were further adjusted. Patient is been discharged in hemodynamically stable condition on baseline mentation with advised to continue taking ciprofloxacin orally for next 1 week to finish a course of antibiotics for UTI, he is also advised to repeat BMP in 1 week while he is on antibiotics. Physical Exam Narrative: EXAM NARRATIVE: General: No acute distress, AO x 1-2, confused HEENT: PERRLA, pupils bilaterally equal and reactive Chest: Normal vesicular breath sounds, no added sounds, equal good air entry bilaterally CVS: S1-S2 regular, no murmurs, no tachycardia, no gallops, no rubs Abdomen: Soft, nontender, no organomegaly, bowel sounds present Neuro: No focal deficits, no facial deformity, AO x3, power 5/5 in all limbs Urinary Catheter Management^: Brar: Cath Placed During This Visit: yes, but has since been removed by the nurse Reason for Continuing Indwelling Catheter: Other Urinary Catheter Date of Insertion: 07/07/21 Urinary Catheter Time of Insertion: 16:25 Date Urinary Catheter Removed: 07/10/21 Time Urinary Catheter Discontinued: 17:00 Discharge Data Data Completed and Pending: Completed Studies During Hospitalization Category Date Time Status CT abdomen pelvis wo con [id number] Rout ine Cat Scan 07/05/21 10:[address] head wo con* 7 0450 Routine Cat Scan 07/08/21 08:[address] head wo con* 7 0450 Stat Cat Scan 07/04/21 17:13 Completed XR chest 1V lawanda ble [id number] Routine Exams 07/08/21 08:08 Completed XR chest 1V lawanda ble [id number] Stat Exams 07/04/21 17:13 Completed MR head wo con* 7 0551 Routine MRI 07/09/21 18:42 Completed CV. echo complete * [id number] Routine Ultrasound 07/05/21 00:08 Completed Pending at discharge Category Date Time Status Blood Culture AM LABS Lab 07/07/21 06:15 Results Labs from last 24 hours 07/11/21 07/11/21 07/11/21 11:41 06:11 05:09 Sodium 140 Potassium 4.0 Chloride 106 Carbon Dioxide 22 Anion Gap 16.0 BUN 32 H Creatinine 1.4 H GFR Calculation Not Reportable Glucose 129 H POC Glucose 152 H 140 H Calculated Osmolal ity 299 H Calcium 8.9 Total Bilirubin 0.4 AST 21 ALT 32 Alkaline Phosphata se 104 Total Protein 6.0 L Albumin 3.1 L Globulin 2.9 07/10/21 07/10/21 20:55 16:28 Sodium Potassium Chloride Carbon Dioxide Anion Gap BUN Creatinine GFR Calculation Glucose POC Glucose 132 H 154 H Calculated Osmolal ity Calcium Total Bilirubin AST ALT Alkaline Phosphata se Total Protein Albumin Globulin Addt'l Data from Hospital Stay: Laboratory Results WBC 6.2 10^3/uL (4.0- 10.0) 07/10/21 03:16 RBC 3.79 10^6/uL (4.1 -5.3) L 07/10/21 03:16 Hgb 11.3 g/dL (11.7-1 6.6) L 07/10/21 03:16 Hct 34.7 % (42.0-52.0 ) L 07/10/21 03:16 MCV 91.6 fl (80-94) 07/10/21 03:16 MCH 29.8 pg (28.0-34. 0) 07/10/21 03:16 MCHC 32.6 g/dL (30.0-3 6.0) D 07/10/21 03:16 RDW 12.5 % (12.1-15.1 ) 07/10/21 03:16 Plt Count 192 10^3/cmm (130 -400) 07/10/21 03:16 MPV 10.1 fL (7.4-10.4 ) 07/10/21 03:16 Neut % (Auto) 69.6 % 07/10/21 03:16 Lymph % (Auto) 11.9 % 07/10/21 03:16 Sac % (Auto) 11.1 % 07/10/21 03:16 Eos % (Auto) 6.3 % 07/10/21 03:16 Baso % (Auto) 0.5 % 07/10/21 03:16 Neut # (Auto) 4.35 10^3/uL (1.8 -7.7) 07/10/21 03:16 Lymph # (Auto) 0.7 10^3/uL (0.8- 4.8) L 07/10/21 03:16 Sac # (Auto) 0.7 10^3/uL (0.2- 0.9) 07/10/21 03:16 Eos # (Auto) 0.4 10^3/uL (0.0- 0.8) 07/10/21 03:16 Baso # (Auto) 0.0 10^3/uL (0.0- 0.1) 07/10/21 03:16 Nucleated RBC % (a uto) 0 % 07/10/21 03:16 Nucleated RBCs # 0.0 /100WBC 07/10/21 03:16 PT 13.40 SECONDS (12 .1-14.9) 07/04/21 17:20 INR 0.99 (0.8-1.2) 07/04/21 17:20 APTT 29.3 SECONDS (23. 9-36.7) 07/04/21 17:20 Sodium 140 mmol/L (136-1 45) 07/11/21 05:09 Potassium 4.0 mmol/L (3.5-5 .1) 07/11/21 05:09 Chloride 106 mmol/L (98-10 7) 07/11/21 05:09 Carbon Dioxide 22 mmol/L (22-29) 07/11/21 05:09 Anion Gap 16.0 (5-19) 07/11/21 05:09 BUN 32 mg/dL (8-23) H 07/11/21 05:09 Creatinine 1.4 mg/dL (0.7-1. 2) H 07/11/21 05:09 GFR Calculation Not Reportable 07/11/21 05:09 Glucose 129 mg/dL (65-115 ) H 07/11/21 05:09 POC Glucose 152 mg/dL (70-110 ) H 07/11/21 11:41 Calculated Osmolal ity 299 mOsm/kg (285- 295) H 07/11/21 05:09 Calcium 8.9 mg/dL (8.5-10 .5) 07/11/21 05:09 Magnesium 1.7 mg/dL (1.7-2. 3) 07/08/21 04:40 Total Bilirubin 0.4 mg/dL (0.15-1 .2) 07/11/21 05:09 AST 21 U/L (0-40) 07/11/21 05:09 ALT 32 U/L (0-41) 07/11/21 05:09 Alkaline Phosphata se 104 IU/L (40-130) 07/11/21 05:09 Troponin T Baselin e 45 ng/L (0-15) H 07/04/21 17:20 Troponin T 120 Min jose 57.13 ng/L (0-15) H 07/04/21 19:23 Delta Troponin T 12.13 ABS# (0-10) H* 07/04/21 19:23 Troponin T Hi Sens 6Hr 148.3 ng/L (0-15) H 07/04/21 23:07 Troponin T Hi Sens 6Hr Delta 103.3 ng/L (0-12) H* 07/04/21 23:07 NT-Pro-B Natriuret Pep 3143 pg/mL (0-450 ) H 07/04/21 17:20 Total Protein 6.0 g/dL (6.6-8.7 ) L 07/11/21 05:09 Albumin 3.1 g/dL (3.5-5.2 ) L 07/11/21 05:09 Globulin 2.9 g/dL (1.3-4.6 ) 07/11/21 05:09 Procalcitonin 0.09 ng/mL (0-0.5 ) 07/06/21 04:31 TSH 3.21 uIU/mL (0.27 -4.20) 07/06/21 04:31 Random Cortisol 7.63 ug/dL (2.47- 19.5) 07/07/21 06:12 Urine Color Yellow (Yellow) 07/07/21 05:10 Urine Appearance Sl hazy (CLEAR) 07/07/21 05:10 Urine pH 5 (5-7) 07/07/21 05:10 Ur Specific Gravit y 1.015 (1.005-1.0 30) 07/07/21 05:10 Urine Protein 1+ (Negative) H 07/07/21 05:10 Urine Glucose (UA) Norm (Normal) 07/07/21 05:10 Urine Ketones Negative (Negati ve) 07/07/21 05:10 Urine Blood 2+ (Negative) H 07/07/21 05:10 Urine Nitrate Negative (Negati ve) 07/07/21 05:10 Urine Bilirubin Neg (Negative) 07/07/21 05:10 Urine Urobilinogen Norm mg/dL (Negat michael) 07/07/21 05:10 Ur Leukocyte Darling ase 1+ (Negative) H 07/07/21 05:10 Urine RBC 10-15 /hpf (0-2) H 07/07/21 05:10 Urine WBC >100 /hpf (0-5) H 07/07/21 05:10 Ur Squamous Epith Cells 0-4 /hpf (0-5) H 07/07/21 05:10 Amorphous Sediment Not Reportable 07/07/21 05:10 Urine Bacteria 4+ /hpf (NONE) H 07/07/21 05:10 SARS-CoV-2 Ag (Rap id) Negative (Negati ve) 07/08/21 21:15 Impressions Abdomen/Pelvis CT 07/05/21 10:29 IMPRESSION: No acute abdominal or pelvic abnormality. Chest X-Ray 07/08/21 08:08 IMPRESSION: 1. COPD changes. 2. Bibasilar atelectasis. Pneumonia should be excluded clinically. Radiation Dose CTDIVOL = (mGy): DLP = (mGy-cm) Head CT 07/08/21 08:57 IMPRESSION: No acute intracranial abnormality. Radiation Dose CTDIVOL = (mGy): DLP = 588.22 (mGy-cm) Head MRI 07/09/21 18:42 IMPRESSION: 1. No evidence of restricted diffusion to suggest acute ischemia. 2. Moderate to advanced small vessel changes with moderate to advanced parenchymal volume loss. 3. Small vessel changes in the lucho. 4. Tiny chronic lacunar infarcts right cerebellum. 5. 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 6. Mild mucosal thickening in the paranasal sinuses. 7. No hemosiderin on the susceptibly weighted images. Microbiology 07/07/21 05:10 Urine,Voided Urine Culture - Final Staphylococcus hominis 07/07/21 06:15 Blood Blood Culture - Preliminary NEGATIVE TO DATE 07/07/21 06:12 Blood Blood Culture - Preliminary NEGATIVE TO DATE Vitals: Last Vital Signs Temp 97.9 F 07/11/21 12:00 Pulse 95 07/11/21 12:00 Resp 17 07/11/21 12:00 BP 120/74 07/11/21 12:00 Pulse Ox 97 07/11/21 12:00 Discharge Plan Discharge Patient Disposition: Xfer [facility] Condition: Stable Prescriptions: New donepezil 5 mg Tablet 10 mg PO BEDTIME 30 Days Qty: 30 RF: 0 midodrine 5 mg Tablet 2.5 mg PO TID 30 Days Qty: 45 RF: 0 ciprofloxacin HCl 500 mg Tablet 250 mg PO BID@0900,2100 5 Days Qty: 10 RF: 0 metoprolol succinate 50 mg tablet extended release 24 hr 50 mg PO DAILY Qty: 30 RF: 0 metoprolol tartrate 25 mg tablet 12.5 mg PO DAILY PRN (Reason: HR more than 120bpm) Qty: 14 RF: 0 Continued clopidogrel 75 mg tablet 75 mg PO DAILY@0800 RF: 0 artifi.tears(hypromellose)(PF) 0.3 % drops 1 drp ophthalmic (eye) DAILY@2000 PRN (Reason: UNKNOWN) RF: 0 meclizine 25 mg tablet 25 mg PO QID PRN (Reason: Vertigo) RF: 0 PreserVision AREDS [id number] capsule 1 cap PO BID@0800,1600 RF: 0 Systane (propylene glycol) 0.4-0.3 % drops 1 - 2 drp ophthalmic (eye) DAILY@2000 PRN (Reason: UNKNOWN) RF: 0 ezetimibe 10 mg Tablet 10 mg PO DAILY@0800 RF: 0 fluoxetine 40 mg Capsule 40 mg PO DAILY@0800 RF: 0 latanoprost 0.005 % Drops 1 drp OPHTHALMIC (EYE) DAILY@1600 RF: 0 methylphenidate HCl 10 mg tablet 20 mg PO DAILY@0800 RF: 0 acetaminophen 500 mg Tablet 500 mg PO Q6H PRN (Reason: Pain) RF: 0 ibuprofen 400 mg Tablet 400 mg PO Q6H PRN (Reason: PAIN/FEVER) RF: 0 Vitamin D Ointment See Rx Instructions .ROUTE .COMPLEX PRN (Reason: Itching) RF: 0 Dulcolax (bisacodyl) 10 mg Suppository 10 mg MD DAILY PRN (Reason: Constipation) RF: 0 Eucerin Lotion 1 applic TOPICAL BID PRN (Reason: itching) RF: 0 cetirizine 10 mg Tablet 10 mg PO DAILY@0800 RF: 0 tamsulosin 0.4 mg capsule 0.4 mg PO BEDTIME@1999 RF: 0 Sarna Original 0.5-0.5 % Lotion 1 applic TOPICAL BID@08,16 RF: 0 Durezol 0.05 % Drops 1 drp OPHTHALMIC (EYE) BID RF: 0 Changed amlodipine 10 mg tablet 5 mg PO DAILY@0800 Qty: 0 RF: 0 Discontinued glipizide 2.5 mg tablet extended release 24hr 2.5 mg PO DAILY@0800 RF: 0 metoprolol tartrate 50 mg tablet 50 mg PO BID@0800,1600 RF: 0 Hold Instructions: decrease dose to 1 pill twice daily losartan 25 mg tablet 25 mg PO DAILY@0800 RF: 0 Discharge Orders: Discharge Order (Routine); Ordered 07/11/21 Ordered By: Ady Hernandez Referrals: Federico Hinton MD [Primary Care Provider] - 7-10 days Discharge Diet: Cardiac Discharge Activity: Resume usual activity Patient Instructions: Opioid Safety Activity Restrictions/Additional Instructions: Repeat BMP in 1 week. Ciprofloxacin for next 7 days to finish a course of antibiotics for UTI. Metoprolol succinate once daily for 2 fibrillation with 12.5 mg once daily as needed for heart rate of more than 100 bpm. Midodrine 2.5 mg 3 times a day for orthostatic hypotension. Discharge Attestations Time Spent in Discharge Care*: greater than 30 min Specific Discharge Activities: educating and/or supporting family/caregiver, discussing with case worker/social workers/dc planners, documenting/other paperwork and evaluating patient/reviewing data Status at Discharge: Cognitive status at discharge: moderately impaired cognition , Behavioral status at discharge: cooperative , Functional status at discharge: uses cane/walker Overall status at discharge: patient is back to baseline Quality Metrics Clinical Quality Measures During this hospital stay, did patient experience: None Coding Level of Care Code Acute Chg FW DC note Diagnoses Atrial fibrillation with rapid ventricular response I48.91 Acute on chronic kidney failure N17.9; N18.9 UTI (urinary tract infection) N39.0 Elevated troponin R77.8 Orthostatic hypotension I95.1 Fall W19.XXXA Hypertension I10 DVT prophylaxis Z29.9
[2021-07-11] MEDS: insulin lispro 100 unit/1 mL SUBCUT (13:01)
== END 2021-07-11 14:55 | disposition skilled nursing facility (03) | DRG 280 ==
LOC: ER 20:37 → ICU 20:53 → CSU 07-06 10:49 → MEDSURG 07-10 23:37
PROVIDERS: Internal Medicine; Admitting Provider Hospitalist; Emergency Provider Emergency Medicine; PCP Family Medicine; Visit Provider Student in an Organized Health Care Education/Training Program
DX: I48.91 Unspecified atrial fibrillation (principal); I21.A1 Myocardial infarction type 2; G93.41 Metabolic encephalopathy; N17.9 Acute kidney failure, unspecified; N39.0 Urinary tract infection, site not specified; S09.90XA Unspecified injury of head, initial encounter; W18.30XA Fall on same level, unspecified, initial encounter; Y93.9 Activity, unspecified; Y92.121 Bathroom in nursing home as the place of occurrence of the external cause; F98.8 Other specified behavioral and emotional disorders with onset usually occurring in childhood and adolescence; I65.29 Occlusion and stenosis of unspecified carotid artery; J44.9 Chronic obstructive pulmonary disease, unspecified; Z86.73 Personal history of transient ischemic attack (TIA), and cerebral infarction without residual deficits; E13.40 Other specified diabetes mellitus with diabetic neuropathy, unspecified; M10.9 Gout, unspecified; I12.9 Hypertensive chronic kidney disease with stage 1 through stage 4 chronic kidney disease, or unspecified chronic kidney disease; E13.22 Other specified diabetes mellitus with diabetic chronic kidney disease; N18.30 Chronic kidney disease, stage 3 unspecified; Z85.51 Personal history of malignant neoplasm of bladder; G47.33 Obstructive sleep apnea (adult) (pediatric); Z96.651 Presence of right artificial knee joint; Z87.891 Personal history of nicotine dependence; F03.90 Unspecified dementia, unspecified severity, without behavioral disturbance, psychotic disturbance, mood disturbance, and anxiety; I95.1 Orthostatic hypotension; Z79.02 Long term (current) use of antithrombotics/antiplatelets; B95.8 Unspecified staphylococcus as the cause of diseases classified elsewhere; R51.9 Headache, unspecified; F32.9 Major depressive disorder, single episode, unspecified; E86.0 Dehydration
CPT/HCPCS: 36415; 36416; 51702; 70450; 70551; 71045; 74176; 80053; 81001; 82533; 82962; 83735; 83880; 84145; 84443; 84484; 85025; 85610; 85730; 87040; 87077; 87086; 87186; 87426; 93005; 93306; 94664; 96365; 96372; 96375; 96376; 97110; 97161; 97530; 99285; J0696; J1650; J1815; J3370; J3490; J7030; J7040; J7050; J8597